=== PATIENT | female | born 1955 | race Caucasian/White ===

== ENCOUNTER → 2018-03-31 | Outpatient (CLI) | payer OTHER ==
[~2018-03-31] MED LIST: ASPI81TA28 PO; ATOR-24 PO; CALC500C70 PO; GABA-112 PO; GABA-113 PO; INSU1INJ33 INJ; LISI-725 PO; METH10TA6 PO; MULT-506 PO; VITA1TAB22 PO
== END | disposition home or self-care (01) ==
LOC: C.RDSM 14:15
PROVIDERS: ATTEND Physical Medicine & Rehabilitation Sports Medicine
DX: M79.674 Pain in right toe(s) (principal); E11.621 Type 2 diabetes mellitus with foot ulcer; Z88.8 Allergy status to other drugs, medicaments and biological substances

== ENCOUNTER 2021-03-02 09:40 | Inpatient (IN) ==
[2021-03-02 10:22] LABS: Basophils # (auto) 0.09 K/uL (0-0.2); Basophils % (auto) 1.4 %; Eosinophils # (auto) 0.17 K/uL (0-0.5); Eosinophils % (auto) 2.7 %; Hematocrit (blood only) 36.8 % (37-47); Immature Granulocytes # (auto) 0.01 K/uL (0.00-0.02); Immature Granulocytes % (auto) 0.2 %; Lymphocytes # (auto) 1.71 K/uL (1.2-3.4); Lymphocytes % (auto) 26.9 %; Mean Corpuscular Hemoglobin 32.4 pg (25-34); Mean Corpuscular Hgb Conc 35.3 g/dL (32-36); Mean Corpuscular Volume 91.8 fL (80-100); Mean Platelet Volume 13.1 fL (7.4-10.4); Monocytes # (auto) 0.41 K/uL (0.11-0.59); Monocytes % (auto) 6.4 %; Neutrophils # (auto) 3.97 K/uL (1.4-6.5); Neutrophils % (auto) 62.4 %; Platelet Count 177 K/uL (130-400); RDW Coefficient of Variation 12.6 % (11.5-14.5); RDW Standard Deviation 42.3 fL (36.4-46.3); Red Blood Count 4.01 M/uL (4.2-5.4); White Blood Count 6.36 K/uL (4.8-10.8)
[2021-03-02] MEDS ORDERED: SODIUM CHLORIDE 0.9% 1000ML 2,000 ML IV ONE (10:41)
[2021-03-02 10:48] LABS: Albumin Globulin Ratio 0.9 (0.9-2); Albumin Level 3.4 gm/dl (3.4-5.0); BUN Creatinine Ratio 21.2 (10-20); Bilirubin,Total 0.6 mg/dl (0.2-1); Calcium 9.5 mg/dl (8.5-10.1); Creatinine Clr Calc Pharmacy 27.8 ml/min; Est GFR (African American) 26.8 ml/min; Est GFR (Non-African American) 23.2 ml/min; Globulin 3.6 gm/dl (2.5-4.0); Potassium 3.3 mmol/L (3.5-5.1)
[2021-03-02] MEDS ORDERED: OPTIRAY 320 125ml IV ONE (10:50)
[2021-03-02] MEDS ORDERED: HHS GOAL RANGE 250-350 mg/dl ONE (10:53)
[2021-03-02] MEDS ORDERED: CARBOHYDRATES FOR HYPOGLYCEMIA PO PRN (10:53)
[2021-03-02] MEDS ORDERED: GLUCOSE 10 TABS/TUBE PO PRN (10:53)
[2021-03-02] MEDS ORDERED: GLUCAGON FOR INJ 1 MG VIAL SQ PRN (10:53)
[2021-03-02] MEDS ORDERED: DEXTROSE 50% 50 ML SYRINGE IV PRN (10:53)
[2021-03-02] MEDS ORDERED: GLUCOSE 40% GEL 15 GM TUBE PO PRN (10:53)
[2021-03-02] MEDS ORDERED: STAT IV Infusion **Titration per Protocol STA ×2 (10:53→11:27)
[2021-03-02] MEDS ORDERED: INSULIN REGULAR 250 UNITS in SODIUM CHLORIDE 0.9% 247.5 ML IV SCH ×2 (11:00→11:15)
--- NOTE | 2021-03-02 11:05 | Emergency Department Note ---
Impression & Plan Acute hyperglycemia, Type 1 diabetes mellitus with complications, Acute hypotension, Brain TIA ED Provider Note NAME: DAVID Tomas ASHLI AGE: 65 SEX: F : 1955 ARRIVES VIA: Walk-In INFORMANT: Patient ED PROVIDER(S): Fitz Song DO CHIEF COMPLAINT: Slurred speech and left upper extremity weakness HPI: Patient is a 65-year-old female that presents to the ER for slurred speech. Patient notes that she has been dizzy all week and since this past Tuesday. She has been having trouble walking. She actually fell down earlier today. This occurred around 8 AM. She notes that some around 9:00 she noticed some weakness in her left hand with movement and lifting. Coworkers also noticed some slurred speech. This lasted for about 45 minutes and now has resolved. She denies any headache or change in vision. No chest pain or shortness of breath. No nausea, vomiting, or diarrhea. She notes her blood sugars have been uncontrolled for the past year due to medication issues. They generally run in the 300s. Denies any dysuria urgency or frequency. ROS: See above HPI for pertinent positives & negatives. A total of 10 systems reviewed and were otherwise negative. PAST MEDICAL HISTORY:See Below PAST SURGICAL HISTORY:See Below FAMILY HISTORY:See Below SOCIAL HISTORY:See Below HOME MEDICATIONS:See Below ALLERGIES:See Below VITALS:See Below PHYSICAL EXAMINATION: GENERAL: Sitting up in bed, alert, well appearing, well nourished, no distress, non-toxic EYE EXAM: normal conjunctiva. PERRL and EOM's intact. Nystagmus to the left with rightward gaze OROPHARYNX: no exudate, no erythema, lips, buccal mucosa, and tongue normal and mucous membranes are dry NECK: supple, no nuchal rigidity, no adenopathy, non-tender LUNGS: Clear to auscultation. Normal chest wall mechanics HEART: no murmurs, S1 normal and S2 normal ABDOMEN: abdomen soft, non-tender, normo-active bowel sounds, no masses, no rebound or guarding. UPPER EXTREMITIES: upper extremities are grossly normal. LOWER EXTREMITIES: No pitting edema. NEURO EXAM: Normal sensorium, cranial nerves II-XII intact, normal speech, no weakness of arms, no weakness of legs. No drift. Finger to nose intact. Gross sensation intact. MEDICAL DECISION MAKING: Patient is a 65-year-old female who presents the ER for slurred speech and left upper extremity weakness which is now resolved. She has been dizzy for the past 3 days. Blood sugars have been uncontrolled for the past year running in the 300s due to insurance issues with getting meds. Labs show no significant leukocytosis or anemia. BMP with a hyponatremia and hypokalemia 3.3. CO2 was elevated at 33. Creatinine was at 2.17 up from baseline of 1.5-1.7. Glucose initially was about 600. LFTs troponin was unremarkable. UA was pending upon admission. Covid was negative. Patient denies any urinary complaints. Patient was given 40 mEq orally as well as 20 mEq to the IV potassium. She was given IV fluids. She is placed on insulin drip. CT of the head was performed after stroke alert was initially called upon initial evaluation. She was back to her baseline. Symptoms this started 9. NIH was 0. CT head was negative. Held on angios due to resolution of symptoms and elevated creatinine. Patient was updated bedside. Discussed with the hospitalist admitted for further work-up. Triage Nursing notes reviewed. Limited review of prior medical records performed Vital Signs: reviewed and remarkable for hypotension Differential diagnosis: Differential Diagnosis includes but is not limited to ischemic Stroke, hemorrhagic stroke, bells palsy, mass, neoplasm, migraine headache, seizure, subarachnoid hemorrhage, TIA, and transient global amnesia. ER treatment provided: See below Diagnostics interpreted by me: ECG: Sinus rhythm rate of 61 Left axis No PVCs QTC 463 Cardiac Monitoring: An order was placed for continuous cardiac monitoring. The monitor shows a rate of 60 with sinus rhythm. Laboratory studies: As stated above and show below. Imaging studies: CT head was negative Chest x-ray without significant change from previous Consultation(s): Discussed with hospitalist for further evaluation Procedures: none Critical Care: I have personally spent 45 minutes of critical care time in the direct management of this patient. This includes bedside care, interpretation of diagnostic studies, and testing, discussion with consultants, patient, and family members, and other required patient management activities. This 45 minutes is in excess of all separately billable procedures. 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 History of tonsillectomy History of tooth extraction S/P cholecystectomy Family History Sister Diabetes Grandmother (Paternal) Diabetes Father Stroke COPD (chronic obstructive pulmonary disease) Brother Hemochromatosis Social History Smoking Status: Never smoker Cigarettes Per Day: QUIT AT 18; Second Hand Exposure: No; Hx Alcohol Use: Yes Alcohol type: wine Hx Substance Use: No Preferred Language: Togolese Communication Ability: Effective Staker Surveying Required: No Beliefs That Will Affect Care: None Current Living Situation: Alone Feels Safe at Home: Yes Assistive Devices: Glasses Allergies Allergies Allergy/AdvReac Type Severity Reaction Status Date / Time pseudoephedrine Allergy Intermediate swelling Verified 03/02/21 11:37 Home Meds Home Medications Medication Instructions Recorded Confirmed multivitamin 1 tab PO DAILY 04/03/18 03/02/21 cyanocobalamin (vitamin B-12) 1,000 mcg PO DAILY 07/06/18 03/02/21 1,000 mcg capsule lisinopril 40 mg tablet 40 mg PO DAILY 06/06/19 03/02/21 calcium citrate 200 mg (950 mg) 600 mg PO DAILY tab 08/24/19 03/02/21 tablet metoprolol tartrate 50 mg tablet 50 mg PO HS tab 08/24/19 03/02/21 gabapentin 100 mg capsule See Rx Instructions PO BID cap 05/19/20 03/02/21 atorvastatin 80 mg tablet 80 mg PO HS 06/09/20 03/02/21 blood sugar diagnostic (OneTouch ea 08/22/20 10/20/20 Verio test strips) lancets 33 gauge (OneTouch Delica ea 08/22/20 10/20/20 Lancets) aspirin 81 mg tablet,delayed 81 mg PO HS 03/02/21 03/02/21 release cholecalciferol (vitamin D3) 25 25 mcg PO DAILY 03/02/21 03/02/21 mcg (1,000 unit) tablet (Vitamin D3) insulin glargine 100 unit/mL (3 20 unit SUBCUT BID 03/02/21 03/02/21 mL) subcutaneous pen (Basaglar KwikPen U-100 Insulin) insulin lispro 100 unit/mL 1 unit SUBCUT QDL 03/02/21 03/02/21 subcutaneous cartridge (Humalog U-100 Insulin) potassium gluconate 600 mg (99 mg) 99 mg PO DAILY 03/02/21 03/02/21 tablet Previous Rx's Medication Instructions Recorded hydrochlorothiazide 25 mg tablet 25 mg PO DAILY #90 tab 05/20/20 levothyroxine 112 mcg tablet 112 mcg PO DAILY #90 tab 08/22/20 Dexcom G6 Youth Counselor (blood-glucose #1 ea NS 11/28/20 meter,continuous) Dexcom G6 Sensor (blood-glucose #9 ea NS 11/28/20 sensor) Dexcom G6 Transmitter #1 ea NS 11/28/20 (blood-glucose transmitter) V-GO 20 (sub-q insulin device, 20 #90 ea NS 12/11/20 unit) Results & Data (ED) Vital Signs Vital Signs - 24 hr 03/02/21 09:46 03/02/21 10:11 03/02/21 10:30 Temperature 36.5 C Temperature Source Oral Pulse Rate 61 60 60 Pulse Rate from SpO2 Sensor 61 Respiratory Rate 18 17 12 Blood Pressure 90/59 L 115/66 118/71 Blood Pressure Mean 69 82 86 Pulse Oximetry 99 96 95 Oxygen Delivery Method Sepsis Recent Fever Within 48 Hours No Sepsis New/Unexplained Change in Mental Status No Sepsis Action Taken by Nursing No Action Required 03/02/21 11:30 03/02/21 12:00 03/02/21 12:30 Temperature Temperature Source Pulse Rate 62 65 62 Pulse Rate from SpO2 Sensor 66 62 Respiratory Rate 17 19 15 Blood Pressure 155/89 H 165/97 H 146/88 H Blood Pressure Mean 111 119 107 Pulse Oximetry 96 100 98 Oxygen Delivery Method Sepsis Recent Fever Within 48 Hours Sepsis New/Unexplained Change in Mental Status Sepsis Action Taken by Nursing 03/02/21 13:00 03/02/21 14:06 Temperature Temperature Source Pulse Rate 58 L 65 Pulse Rate from SpO2 Sensor 58 L Respiratory Rate 18 18 Blood Pressure 152/87 H 142/77 H Blood Pressure Mean 108 Pulse Oximetry 99 99 Oxygen Delivery Method Room Air Sepsis Recent Fever Within 48 Hours Sepsis New/Unexplained Change in Mental Status Sepsis Action Taken by Nursing Laboratory Data Result diagrams: 03/02/21 10:11 03/02/21 10:11 Lab Results 03/02/21 03/02/21 03/02/21 Range/Units 09:53 09:54 10:11 WBC 6.36 (4.8-10.8) K/uL RBC 4.01 L (4.2-5.4) M/uL Hgb 13.0 (12.0-16.0) g/dL Hct 36.8 L (37-47) % MCV 91.8 (80-100) fL MCH 32.4 (25-34) pg MCHC 35.3 (32-36) g/dL RDW Std Deviation 42.3 (36.4-46.3) fL RDW Coeff of Hattie 12.6 (11.5-14.5) % Plt Count 177 (130-400) K/uL MPV 13.1 H (7.4-10.4) fL Immature Gran % (Auto) 0.2 % Neut % (Auto) 62.4 % Lymph % (Auto) 26.9 % Parke % (Auto) 6.4 % Eos % (Auto) 2.7 % Baso % (Auto) 1.4 % Neut # (Auto) 3.97 (1.4-6.5) K/uL Lymph # (Auto) 1.71 (1.2-3.4) K/uL Parke # (Auto) 0.41 (0.11-0.59) K/uL Eos # (Auto) 0.17 (0-0.5) K/uL Baso # (Auto) 0.09 (0-0.2) K/uL Immature Gran # (Auto) 0.01 (0.00-0.02) K/uL PT (9.0-12.0) Seconds INR (0.9-1.1) APTT (21.0-31.0) Seconds PTT Ratio ABG pH (7.35-7.45) ABG pCO2 (35-46) mmHg ABG pO2 (80-95) mmHg ABG HCO3 (19-24) mmol/L ABG O2 Saturation (90-95) % ABG Base Excess (-9-1.8) mEq/L Fahad Test (Pos) Barometric Pressure mm/Hg Oxygen Given Sodium (136-145) mmol/L Potassium (3.5-5.1) mmol/L Chloride (98-107) mmol/L Carbon Dioxide (21-32) mmol/L Anion Gap (3-11) BUN (7-18) mg/dl Creatinine (0.6-1.2) mg/dl Est Cr Clr Drug Dosing ml/min Est GFR ( Amer) ml/min Est GFR (Non-Af Amer) ml/min BUN/Creatinine Ratio (10-20) Glucose (70-99) mg/dl POC Glucose 591 H* > 600 H* (70-99) mg/dl Estimat Average Glucose mg/dl Hemoglobin A1c (4.5-5.6) % Calcium (8.5-10.1) mg/dl Phosphorus (2.5-4.9) mg/dl Magnesium (1.8-2.4) mg/dl Total Bilirubin (0.2-1) mg/dl AST (15-37) U/L ALT (12-78) U/L Alkaline Phosphatase (45-117) U/L Troponin I (0-0.045) ng/ml Total Protein (6.4-8.2) gm/dl Albumin (3.4-5.0) gm/dl Globulin (2.5-4.0) gm/dl Albumin/Globulin Ratio (0.9-2) Beta-Hydroxybutyric Acd (0.2-2.81) mg/dl COVID-19 Eval Order SARS-CoV-2 (PCR) (Negative) 03/02/21 03/02/21 03/02/21 Range/Units 10:11 11:06 11:25 WBC (4.8-10.8) K/uL RBC (4.2-5.4) M/uL Hgb (12.0-16.0) g/dL Hct (37-47) % MCV (80-100) fL MCH (25-34) pg MCHC (32-36) g/dL RDW Std Deviation (36.4-46.3) fL RDW Coeff of Hattie (11.5-14.5) % Plt Count (130-400) K/uL MPV (7.4-10.4) fL Immature Gran % (Auto) % Neut % (Auto) % Lymph % (Auto) % Parke % (Auto) % Eos % (Auto) % Baso % (Auto) % Neut # (Auto) (1.4-6.5) K/uL Lymph # (Auto) (1.2-3.4) K/uL Parke # (Auto) (0.11-0.59) K/uL Eos # (Auto) (0-0.5) K/uL Baso # (Auto) (0-0.2) K/uL Immature Gran # (Auto) (0.00-0.02) K/uL PT 9.9 (9.0-12.0) Seconds INR 1.0 (0.9-1.1) APTT 24.3 (21.0-31.0) Seconds PTT Ratio 0.9 ABG pH (7.35-7.45) ABG pCO2 (35-46) mmHg ABG pO2 (80-95) mmHg ABG HCO3 (19-24) mmol/L ABG O2 Saturation (90-95) % ABG Base Excess (-9-1.8) mEq/L Fahad Test (Pos) Barometric Pressure mm/Hg Oxygen Given Sodium 129 L (136-145) mmol/L Potassium 3.3 L (3.5-5.1) mmol/L Chloride 89 L (98-107) mmol/L Carbon Dioxide 33 H (21-32) mmol/L Anion Gap 7.0 (3-11) BUN 46 H (7-18) mg/dl Creatinine 2.17 H (0.6-1.2) mg/dl Est Cr Clr Drug Dosing 27.8 ml/min Est GFR ( Amer) 26.8 ml/min Est GFR (Non-Af Amer) 23.2 ml/min BUN/Creatinine Ratio 21.2 H (10-20) Glucose 581 H* (70-99) mg/dl POC Glucose > 600 H* (70-99) mg/dl Estimat Average Glucose mg/dl Hemoglobin A1c (4.5-5.6) % Calcium 9.5 (8.5-10.1) mg/dl Phosphorus (2.5-4.9) mg/dl Magnesium (1.8-2.4) mg/dl Total Bilirubin 0.6 (0.2-1) mg/dl AST 31 (15-37) U/L ALT 43 (12-78) U/L Alkaline Phosphatase 85 (45-117) U/L Troponin I (0-0.045) ng/ml Total Protein 7.0 (6.4-8.2) gm/dl Albumin 3.4 (3.4-5.0) gm/dl Globulin 3.6 (2.5-4.0) gm/dl Albumin/Globulin Ratio 0.9 (0.9-2) Beta-Hydroxybutyric Acd (0.2-2.81) mg/dl COVID-19 Eval Order SARS-CoV-2 (PCR) (Negative) 03/02/21 03/02/21 03/02/21 Range/Units 11:25 11:25 11:25 WBC (4.8-10.8) K/uL RBC (4.2-5.4) M/uL Hgb (12.0-16.0) g/dL Hct (37-47) % MCV (80-100) fL MCH (25-34) pg MCHC (32-36) g/dL RDW Std Deviation (36.4-46.3) fL RDW Coeff of Hattie (11.5-14.5) % Plt Count (130-400) K/uL MPV (7.4-10.4) fL Immature Gran % (Auto) % Neut % (Auto) % Lymph % (Auto) % Parke % (Auto) % Eos % (Auto) % Baso % (Auto) % Neut # (Auto) (1.4-6.5) K/uL Lymph # (Auto) (1.2-3.4) K/uL Parke # (Auto) (0.11-0.59) K/uL Eos # (Auto) (0-0.5) K/uL Baso # (Auto) (0-0.2) K/uL Immature Gran # (Auto) (0.00-0.02) K/uL PT (9.0-12.0) Seconds INR (0.9-1.1) APTT (21.0-31.0) Seconds PTT Ratio ABG pH 7.44 (7.35-7.45) ABG pCO2 46 (35-46) mmHg ABG pO2 72 L (80-95) mmHg ABG HCO3 30 H (19-24) mmol/L ABG O2 Saturation 95.2 H (90-95) % ABG Base Excess 4.9 H (-9-1.8) mEq/L Fahad Test Pos (Pos) Barometric Pressure 732.0 mm/Hg Oxygen Given RA Sodium (136-145) mmol/L Potassium (3.5-5.1) mmol/L Chloride (98-107) mmol/L Carbon Dioxide (21-32) mmol/L Anion Gap (3-11) BUN (7-18) mg/dl Creatinine (0.6-1.2) mg/dl Est Cr Clr Drug Dosing ml/min Est GFR ( Amer) ml/min Est GFR (Non-Af Amer) ml/min BUN/Creatinine Ratio (10-20) Glucose (70-99) mg/dl POC Glucose (70-99) mg/dl Estimat Average Glucose 413 mg/dl Hemoglobin A1c 16.0 H (4.5-5.6) % Calcium (8.5-10.1) mg/dl Phosphorus 3.0 (2.5-4.9) mg/dl Magnesium 2.1 (1.8-2.4) mg/dl Total Bilirubin (0.2-1) mg/dl AST (15-37) U/L ALT (12-78) U/L Alkaline Phosphatase (45-117) U/L Troponin I < 0.015 (0-0.045) ng/ml Total Protein (6.4-8.2) gm/dl Albumin (3.4-5.0) gm/dl Globulin (2.5-4.0) gm/dl Albumin/Globulin Ratio (0.9-2) Beta-Hydroxybutyric Acd (0.2-2.81) mg/dl COVID-19 Eval Order SARS-CoV-2 (PCR) (Negative) 03/02/21 03/02/21 03/02/21 Range/Units 11:50 11:50 12:41 WBC (4.8-10.8) K/uL RBC (4.2-5.4) M/uL Hgb (12.0-16.0) g/dL Hct (37-47) % MCV (80-100) fL MCH (25-34) pg MCHC (32-36) g/dL RDW Std Deviation (36.4-46.3) fL RDW Coeff of Hattie (11.5-14.5) % Plt Count (130-400) K/uL MPV (7.4-10.4) fL Immature Gran % (Auto) % Neut % (Auto) % Lymph % (Auto) % Parke % (Auto) % Eos % (Auto) % Baso % (Auto) % Neut # (Auto) (1.4-6.5) K/uL Lymph # (Auto) (1.2-3.4) K/uL Parke # (Auto) (0.11-0.59) K/uL Eos # (Auto) (0-0.5) K/uL Baso # (Auto) (0-0.2) K/uL Immature Gran # (Auto) (0.00-0.02) K/uL PT (9.0-12.0) Seconds INR (0.9-1.1) APTT (21.0-31.0) Seconds PTT Ratio ABG pH (7.35-7.45) ABG pCO2 (35-46) mmHg ABG pO2 (80-95) mmHg ABG HCO3 (19-24) mmol/L ABG O2 Saturation (90-95) % ABG Base Excess (-9-1.8) mEq/L Fahad Test (Pos) Barometric Pressure mm/Hg Oxygen Given Sodium (136-145) mmol/L Potassium (3.5-5.1) mmol/L Chloride (98-107) mmol/L Carbon Dioxide (21-32) mmol/L Anion Gap (3-11) BUN (7-18) mg/dl Creatinine (0.6-1.2) mg/dl Est Cr Clr Drug Dosing ml/min Est GFR ( Amer) ml/min Est GFR (Non-Af Amer) ml/min BUN/Creatinine Ratio (10-20) Glucose (70-99) mg/dl POC Glucose 504 H* (70-99) mg/dl Estimat Average Glucose mg/dl Hemoglobin A1c (4.5-5.6) % Calcium (8.5-10.1) mg/dl Phosphorus (2.5-4.9) mg/dl Magnesium (1.8-2.4) mg/dl Total Bilirubin (0.2-1) mg/dl AST (15-37) U/L ALT (12-78) U/L Alkaline Phosphatase (45-117) U/L Troponin I (0-0.045) ng/ml Total Protein (6.4-8.2) gm/dl Albumin (3.4-5.0) gm/dl Globulin (2.5-4.0) gm/dl Albumin/Globulin Ratio (0.9-2) Beta-Hydroxybutyric Acd (0.2-2.81) mg/dl COVID-19 Eval Order Covid19 at [facility] SARS-CoV-2 (PCR) NEGATIVE (Negative) 03/02/21 Range/Units 13:48 WBC (4.8-10.8) K/uL RBC (4.2-5.4) M/uL Hgb (12.0-16.0) g/dL Hct (37-47) % MCV (80-100) fL MCH (25-34) pg MCHC (32-36) g/dL RDW Std Deviation (36.4-46.3) fL RDW Coeff of Hattie (11.5-14.5) % Plt Count (130-400) K/uL MPV (7.4-10.4) fL Immature Gran % (Auto) % Neut % (Auto) % Lymph % (Auto) % Parke % (Auto) % Eos % (Auto) % Baso % (Auto) % Neut # (Auto) (1.4-6.5) K/uL Lymph # (Auto) (1.2-3.4) K/uL Parke # (Auto) (0.11-0.59) K/uL Eos # (Auto) (0-0.5) K/uL Baso # (Auto) (0-0.2) K/uL Immature Gran # (Auto) (0.00-0.02) K/uL PT (9.0-12.0) Seconds INR (0.9-1.1) APTT (21.0-31.0) Seconds PTT Ratio ABG pH (7.35-7.45) ABG pCO2 (35-46) mmHg ABG pO2 (80-95) mmHg ABG HCO3 (19-24) mmol/L ABG O2 Saturation (90-95) % ABG Base Excess (-9-1.8) mEq/L Fahad Test (Pos) Barometric Pressure mm/Hg Oxygen Given Sodium (136-145) mmol/L Potassium (3.5-5.1) mmol/L Chloride (98-107) mmol/L Carbon Dioxide (21-32) mmol/L Anion Gap (3-11) BUN (7-18) mg/dl Creatinine (0.6-1.2) mg/dl Est Cr Clr Drug Dosing ml/min Est GFR ( Amer) ml/min Est GFR (Non-Af Amer) ml/min BUN/Creatinine Ratio (10-20) Glucose (70-99) mg/dl POC Glucose 445 H* (70-99) mg/dl Estimat Average Glucose mg/dl Hemoglobin A1c (4.5-5.6) % Calcium (8.5-10.1) mg/dl Phosphorus (2.5-4.9) mg/dl Magnesium (1.8-2.4) mg/dl Total Bilirubin (0.2-1) mg/dl AST (15-37) U/L ALT (12-78) U/L Alkaline Phosphatase (45-117) U/L Troponin I (0-0.045) ng/ml Total Protein (6.4-8.2) gm/dl Albumin (3.4-5.0) gm/dl Globulin (2.5-4.0) gm/dl Albumin/Globulin Ratio (0.9-2) Beta-Hydroxybutyric Acd (0.2-2.81) mg/dl COVID-19 Eval Order SARS-CoV-2 (PCR) (Negative) Administered Medications Insulin Human Regular 250 (units/ Sodium Chloride) 250 mls @ 3.5 mls/hr IV .Q24H [facility]; Protocol Stop: 04/01/21 11:14 Last Titration: 03/02/21 12:49 Dose: 3.5 units/hr, 3.5 mls/hr Documented by: [id number] Cosigned by: [id number] Admin: 03/02/21 11:38 Dose: 2.9 units/hr, 2.9 mls/hr Documented by: [id number] Cosigned by: [id number] Discontinued Medications Sodium Chloride (Nss 1000ml) 2,000 mls @ 999 mls/hr IV .Q2H1M ONE Stop: 03/02/21 12:41 Last Admin: 03/02/21 11:38 Dose: 999 mls/hr Documented by: [id number] Potassium Chloride (K Gonzalo / Wtr) 10 meq in 100 mls @ 100 mls/hr IV Q1H [facility]ODIA Stop: 03/02/21 12:59 Last Admin: 03/02/21 13:23 Dose: 100 mls/hr Documented by: [id number] Infusion: 03/02/21 12:49 Dose: 0 mls/hr Documented by: [id number] Admin: 03/02/21 11:38 Dose: 100 mls/hr Documented by: [id number] Insulin Human Regular (Novolin-R Bolus From Bag) 3 units IV ONE ONE Stop: 03/02/21 11:19 Last Admin: 03/02/21 11:40 Dose: 3 units Documented by: [id number] Cosigned by: [id number] Ioversol (Optiray 320 125ml) 120 ml IV ONCE ONE Stop: 03/02/21 10:51 Last Admin: 03/02/21 10:50 Dose: 120 ml Documented by: [id number] Potassium Chloride (Potassium Chloride 20 Meq/15 Ml Udc) 40 meq PO NOW STA Stop: 03/02/21 11:25 Last Admin: 03/02/21 11:37 Dose: 40 meq Documented by: [id number] Imaging Data Radiologist's Impression: Chest X-Ray 03/02/21 10:40 XR chest 1V portable CLINICAL HISTORY: Stroke Like Symptoms COMPARISON STUDY: November 18, 2020 FINDINGS: No pneumothorax. No pleural effusion. No large infiltrates or consolidative lesions are seen. Redemonstration of minimal density at the left base which could represent small atelectasis or scarring. Cardiomediastinal silhouette is within normal limits in size. No significant pulmonary vascular congestion.. Osseous structures: Minimal degenerative changes of the spine. IMPRESSION: 1. No large infiltrates or consolidative lesions. Minimal density at the left base was also seen on prior study and might represent small atelectasis or scarring. ACT 112: Negative or not required by law. The above report was generated using voice recognition software. It may contain grammatical, syntax or spelling errors. Electronically signed by: Marie Rebolledo DO 03/02/2021 11:[address] 03/02/21 10:[address] DOSE: 690.05 mGycm HISTORY: Stroke Like Symptoms TECHNIQUE: Multiaxial CT images of the head were performed without the use of intravenous contrast. Automated exposure control was utilized for this study. A dose lowering technique was utilized adhering to the principles of ALARA. Comparison: None. Findings: The paranasal sinuses and mastoid air cells are clear. The calvarium and skull base are intact. The ventricles and sulci are within normal limits. There is no mass, hematoma, midline shift, or acute infarct. Impression: No acute intracranial abnormality. ACT 112: Negative or not required by law. Electronically signed by: Juvenal Glez M.D. 03/02/2021 11:07 AM Discharge Plan Visit Data Chief Complaint: Hyperglycemia Stated Complaint: DIZZY SPELLS, UNBALANCED, SLURRED SPEECH, REF BY D ED Provider: Fitz Song ED Midlevel Provider: Priya Su Discharge Problem: Acute hyperglycemia, Type 1 diabetes mellitus with complications, Acute hypotension, Brain TIA Discharge Instructions Interventions: ED Discharge Assessment Last Done: 03/02/21 14:06 Forms Stand Alone Forms: [facility] Prescriptions Prescriptions: No Action multivitamin tablet 1 tab PO DAILY RF: 0 gabapentin 100 mg capsule See Rx Instructions PO BID RF: 0 hydrochlorothiazide 25 mg tablet 25 mg PO DAILY Qty: 90 RF: 3 (DME) Dexcom G6 Youth Counselor Misc See Rx Instructions .ROUTE .MEDSUPPLY Qty: 1 RF: 0 (DME) Dexcom G6 Sensor Device See Rx Instructions .ROUTE .MEDSUPPLY Qty: 9 RF: 3 (DME) Dexcom G6 Transmitter Device See Rx Instructions .ROUTE .MEDSUPPLY Qty: 1 RF: 3 (DME) V-GO 20 Device See Rx Instructions .ROUTE .MEDSUPPLY Qty: 90 RF: 3 (DME) OneTouch Verio test strips Strip See Rx Instructions .ROUTE .MEDSUPPLY RF: 0 (DME) lancets [OneTouch Delica Lancets] 33 gauge misc See Rx Instructions [id number] .MEDSUPPLY RF: 0 levothyroxine 112 mcg tablet 112 mcg PO DAILY Qty: 90 RF: 3 calcium citrate 200 mg (950 mg) tablet 600 mg PO DAILY RF: 0 atorvastatin 80 mg tablet 80 mg PO HS RF: 0 lisinopril 40 mg tablet 40 mg PO DAILY RF: 0 metoprolol tartrate 50 mg tablet 50 mg PO HS RF: 0 cyanocobalamin (vitamin B-12) 1,000 mcg Capsule 1,000 mcg PO DAILY RF: 0 aspirin 81 mg Tablet,Delayed Release (Dr/Ec) 81 mg PO HS RF: 0 Humalog U-100 Insulin 100 unit/mL Cartridge 1 unit SUBCUT QDL RF: 0 cholecalciferol (vitamin D3) [Vitamin D3] 25 mcg (1,000 unit) Tablet 25 mcg PO DAILY RF: 0 Basaglar KwikPen U-100 Insulin 100 unit/mL (3 mL) insulin pen 20 unit SUBCUT BID RF: 0 potassium gluconate 600 mg (99 mg) Tablet 99 mg PO DAILY RF: 0 Referrals Referrals: Taylor Andrews PA-C [Primary Care Provider] - Resident Activity Tracking Resident Involvement: Resident Care Provided (Patient seen in conjunction with attending provider, please see their documentation for MDM) Care Provided: Adult ED
--- NOTE | 2021-03-02 11:09 | CT Scan Report ---
HEAD CT NONCONTRAST CT DOSE: 690.05 mGycm HISTORY: Stroke Like Symptoms TECHNIQUE: Multiaxial CT images of the head were performed without the use of intravenous contrast. A utomated exposure control was utilized for this study. A dose lowering technique was utilized adheri ng to the principles of ALARA. Comparison: None. Findings: The paranasal sinuses and mastoid air cells are clear. The calvarium and skull base are int act. The ventricles and sulci are within normal limits. There is no mass, hematoma, midline shift, or acute infarct. Impression: No acute intracranial abnormality. ACT 112: Negative or not required by law. Electronically signed by: Juvenal Glez M.D. 03/02/2021 11:07 AM
[2021-03-02] MEDS ORDERED: NovoLIN-R BOLUS FROM BAG IV ONE ×3 (11:15→11:18)
[2021-03-02] MEDS ORDERED: POTASSIUM CHLORIDE 20 MEQ/15 ML UDC PO STA (11:24)
--- NOTE | 2021-03-02 11:26 | XRay Report ---
XR chest 1V portable CLINICAL HISTORY: Stroke Like Symptoms COMPARISON STUDY: November 18, 2020 FINDINGS: No pneumothorax. No pleural effusion. No large infiltrates or consolidative lesions are seen. Redemonstration of minimal density at the lef t base which could represent small atelectasis or scarring. Cardiomediastinal silhouette is within normal limits in size. No significant pulmonary vascular congestion.. Osseous structures: Minimal degenerative changes of the spine. IMPRESSION: 1. No large infiltrates or consolidative lesions. Minimal density at the left base was also seen on prior study and might represent small atelectasis or scarring. ACT 112: Negative or not required by law. The above report was generated using voice recognition software. It may contain grammatical, syntax o r spelling errors. Electronically signed by: Marie Rebolledo DO 03/02/2021 11:24 AM
[2021-03-02] MEDS ORDERED: INSULIN PROTOCOL GOAL RANGE ONE (11:27)
[2021-03-02] MEDS: POTASSIUM CHLORIDE / WTR 10 MEQ/100 ML PLCT IV SCH ×2 (11:38→13:23)
[2021-03-02 11:47] LABS: Base Excess ABG 4.9 mEq/L (-9-1.8); HCO3 ABG 30 mmol/L (19-24); Oxygen Saturation ABG 95.2 % (90-95); PCO2 ABG 46 mmHg (35-46); PO2 ABG 72 mmHg (80-95); pH ABG 7.44 (7.35-7.45)
[2021-03-02 11:49] LABS: Allen Test Pos (Pos)
[2021-03-02 11:56] LABS: Partial Thromboplastin Ratio 0.9; Partial Thromboplastin Time 24.3 Seconds (21.0-31.0); Prothrombin Time 9.9 Seconds (9.0-12.0)
--- NOTE | 2021-03-02 12:47 | History & Physical Report ---
Date of Service March 02, 2021 Assessment & Plan (1) Weakness: Plan: TIA vs. Hyperglycemia - Rapidly resloved symptoms following insulin administration - MRI- pending, CT of head no acute process - ECHO pending - NIHSS 0 - Continue daily aspirin - Continue statin - Continue BB (2) Diabetes type 1, uncontrolled: Plan: Hyperglycemia vs. 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- - ALLY type I likely pre-renal - Continue with LR at 100 ml per hour - Avoid further nephrotoxic agents (4) Dyslipidemia: Plan: Continue statin - lipids in the morning (5) Graves disease: Plan: Continue with synthroid TSH in the morning (6) Hypertension: Plan: Appears well controlled- on appropriate disease modifying and risk reduction meds - Continue statin - Continue SOHAN - Continue BB (7) Overweight: Plan: Continue with diet education and control History of Present Illness Primary Care Provider: Taylor Andrews 65 YOF with past medical history of: HTN, HLD, Hypothyroidism/graves disease, CKD III, DMI, neuropathy and obesity. Patient comes to the emergency room today as a stroke alert secondary to left arm weakness, slurred speech, and mental fog. She had a CT scan of the head and [place]est[place] [facility]. Her head CT scan was negative and with return of her labs, was noted to be hyperglycemic >600. She was started on an insulin drip with potassium orally and IV replaced, she had resolution of her symptoms and NIHSS of 0. Hospitalist team was notified for admission. Patient symptoms started on Tuesday, where she had bouts of dizziness and light headedness/weakness at work, she ate lunch with her carbohydrates and immediately felt better. She had some remaining dizziness on Tuesday so she didn't do much but did check her sugars and used both of her insulins. She felt good on Tuesday and prior to bed her blood sugar was 390. When she got up this morning, she felt "mentally foggy" hard to concentrate and was weak and uncoordinated, she did not check her blood sugar this morning, secondary to the fact that she could not have used her glucometer or grazyna up her insulin. She got to work around 0930 and noted that her speech was slurring so she was brought to the [facility]. The patient has been diabetic for many years, and was initially on insulin pump, where she had not had any issues. Her insurance stopped covering this and she was then transitioned to a insulin pen. Now she is on basal bolus insulin with syringes and has had a likely hypoglycemic episode and hyper glycemic episode. The patient normally takes her long acting insulin without any missed doses, however she does not check her blood sugars through lunch at work or at dinner time and normally just covers herself prior to bed with her short acting and long acting insulins. The patient does not want to take her supplies to work she believes it is unsanitary and difficult to do. 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 The patient will be admitted to continue to evaluate her neurological status and hyperglycemic status. Will keep her on insulin drip and transition later this evening or in the morning. Will get MRI of the brain and ECHO for CVA workup. Patient normally follows with Dr. Becerril for endocrinology. Patient has received her COVID Vaccine. Allergies Allergy/AdvReac Type Severity Reaction Status Date / Time pseudoephedrine Allergy Intermediate swelling Verified 03/02/21 11:37 Home Medications Medication Instructions Recorded Confirmed Type multivitamin 1 tab PO DAILY 04/03/18 03/02/21 History cyanocobalamin (vitamin B-12) 1,000 mcg PO DAILY 07/06/18 03/02/21 History 1,000 mcg capsule lisinopril 40 mg tablet 40 mg PO DAILY 06/06/19 03/02/21 History calcium citrate 200 mg (950 mg) 600 mg PO DAILY tab 08/24/19 03/02/21 History tablet gabapentin 100 mg capsule See Rx Instructions PO BID cap 05/19/20 03/02/21 History hydrochlorothiazide 25 mg tablet 25 mg PO DAILY #90 tab 05/20/20 03/02/21 Rx atorvastatin 80 mg tablet 80 mg PO HS 06/09/20 03/02/21 History blood sugar diagnostic (OneTouch ea 08/22/20 10/20/20 History Verio test strips) lancets 33 gauge (OneTouch Delica ea 08/22/20 10/20/20 History Lancets) levothyroxine 112 mcg tablet 112 mcg PO DAILY #90 tab 08/22/20 03/02/21 Rx Dexcom G6 Boil Off Worker (blood-glucose #1 ea NS 11/28/20 Rx meter,continuous) Dexcom G6 Sensor (blood-glucose #9 ea NS 11/28/20 Rx sensor) Dexcom G6 Transmitter #1 ea NS 11/28/20 Rx (blood-glucose transmitter) V-GO 20 (sub-q insulin device, 20 #90 ea NS 12/11/20 Rx unit) aspirin 81 mg tablet,delayed 81 mg PO HS 03/02/21 03/02/21 History release cholecalciferol (vitamin D3) 25 25 mcg PO DAILY 03/02/21 03/02/21 History mcg (1,000 unit) tablet (Vitamin D3) insulin glargine 100 unit/mL (3 20 unit SUBCUT DAILY 03/02/21 03/03/21 History mL) subcutaneous pen (Basaglar KwikPen U-100 Insulin) insulin lispro 100 unit/mL 1 unit SUBCUT QDL 03/02/21 03/02/21 History subcutaneous cartridge (Humalog U-100 Insulin) metoprolol succinate 50 mg 50 mg PO HS 03/02/21 03/02/21 History tablet,extended release 24 hr (Toprol XL) potassium gluconate 600 mg (99 mg) 99 mg PO DAILY 03/02/21 03/02/21 History tablet 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 History of tonsillectomy History of tooth extraction S/P cholecystectomy Family History Sister Diabetes Grandmother (Paternal) Diabetes Father Stroke COPD (chronic obstructive pulmonary disease) Brother Hemochromatosis Social History Smoking Status: Former smoker Cigarettes Per Day: QUIT AT 18; Second Hand Exposure: No; Hx Alcohol Use: Yes Alcohol type: wine Hx Substance Use: No Preferred Language: Angolan Communication Ability: Effective Lokie Engineer Required: No Beliefs That Will Affect Care: None Current Living Situation: Alone Current Living Situation Comment: home alone with cat, cares for elderly mother who lives nearby How many Children do You have: 0 Other Information That Helps Us Care for You: No Feels Safe at Home: Yes Safety Concerns: Feels Safe At This Time Assistive Devices: None Review of Systems Review of Systems: REVIEW OF SYSTEMS: Constitutional: No fever, sweats or chills Eyes: (+) wears glasses, retinopathy, No diplopia, no worsening or blurred vision ENT: normal hearing, no trouble swallowing Respiratory: No cough, sputum, dyspnea at rest or on exertion Cardiovascular: No chest pain, tightness or palpitations Abdomen: No pain, nausea, vomiting, diarrhea or constipation Musculoskeletal: (+) walks with cane, fallen right arch, No joint pain, calf pain, swelling Neurologic: (+) (+) weakness, and tingling in left hand, No weakness, numbness/tingling, or balance problems Psychiatric: No anxiety or depression Skin: No rash or itch Physical Exam Physical Exam: PHYSICAL EXAM: General: awake, alert, no apparent distress Head: Normocephalic, atraumatic ENT: no pharyngeal exudate, mucous membranes dry, Neuro: PERRLA, EOMI, AAO x 3, speech clear and appropriate, strength intact bilaterally 5/5, sensation intact and equal all extremities and dermatomes, no pronator drift, no facial droop, normal coordination, dizziness resolved. NIHSS 0 Chest: equal rise and fall of the chest, no accessory muscle use, no heaves or thrills, Clear to auscultation, on room air, Cardiac: Regular rate and rhythm, telemetry reviewed, skin warm dry, cap refill <3 seconds, peripheral pulses +2 no JVD, no murmur, no JVD, no edema GI: NABS x 4 quadrants, soft, nontender to palpation, no rebound, guarding or tenderness : Spontaneously voiding, no pain, no CVA tenderness, Extremities: Normal inspection, no peripheral edema or erythema, calfs nontender to palpation Psych: Normal mood and affect Skin: no rash or erythema Results & Data Results & Data ([facility]) Vital Signs (Past 12 Hours) Vital Signs Temp Pulse Resp BP Pulse Ox 03/02/21 11:30 62 17 155/89 H 96 03/02/21 10:30 60 12 118/71 95 03/02/21 10:11 60 17 115/66 96 03/02/21 09:46 36.5 C 61 18 90/59 L 99 Laboratory Results Abnormal lab results 03/02/21 03/02/21 03/02/21 Range/Units 09:53 09:54 10:11 RBC 4.01 L (4.2-5.4) M/uL Hct 36.8 L (37-47) % MPV 13.1 H (7.4-10.4) fL ABG pO2 (80-95) mmHg ABG HCO3 (19-24) mmol/L ABG O2 Saturation (90-95) % ABG Base Excess (-9-1.8) mEq/L Sodium (136-145) mmol/L Potassium (3.5-5.1) mmol/L Chloride (98-107) mmol/L Carbon Dioxide (21-32) mmol/L BUN (7-18) mg/dl Creatinine (0.6-1.2) mg/dl BUN/Creatinine Ratio (10-20) Glucose (70-99) mg/dl POC Glucose 591 H* > 600 H* (70-99) mg/dl 03/02/21 03/02/21 03/02/21 Range/Units 10:11 11:06 11:25 RBC (4.2-5.4) M/uL Hct (37-47) % MPV (7.4-10.4) fL ABG pO2 72 L (80-95) mmHg ABG HCO3 30 H (19-24) mmol/L ABG O2 Saturation 95.2 H (90-95) % ABG Base Excess 4.9 H (-9-1.8) mEq/L Sodium 129 L (136-145) mmol/L Potassium 3.3 L (3.5-5.1) mmol/L Chloride 89 L (98-107) mmol/L Carbon Dioxide 33 H (21-32) mmol/L BUN 46 H (7-18) mg/dl Creatinine 2.17 H (0.6-1.2) mg/dl BUN/Creatinine Ratio 21.2 H (10-20) Glucose 581 H* (70-99) mg/dl POC Glucose > 600 H* (70-99) mg/dl 03/02/21 Range/Units 12:41 RBC (4.2-5.4) M/uL Hct (37-47) % MPV (7.4-10.4) fL ABG pO2 (80-95) mmHg ABG HCO3 (19-24) mmol/L ABG O2 Saturation (90-95) % ABG Base Excess (-9-1.8) mEq/L Sodium (136-145) mmol/L Potassium (3.5-5.1) mmol/L Chloride (98-107) mmol/L Carbon Dioxide (21-32) mmol/L BUN (7-18) mg/dl Creatinine (0.6-1.2) mg/dl BUN/Creatinine Ratio (10-20) Glucose (70-99) mg/dl POC Glucose 504 H* (70-99) mg/dl Diagnostic Findings Chest X-Ray 03/02/21 10:40 XR chest 1V portable CLINICAL HISTORY: Stroke Like Symptoms COMPARISON STUDY: November 18, 2020 FINDINGS: No pneumothorax. No pleural effusion. No large infiltrates or consolidative lesions are seen. Redemonstration of minimal density at the left base which could represent small atelectasis or scarring. Cardiomediastinal silhouette is within normal limits in size. No significant pulmonary vascular congestion.. Osseous structures: Minimal degenerative changes of the spine. IMPRESSION: 1. No large infiltrates or consolidative lesions. Minimal density at the left base was also seen on prior study and might represent small atelectasis or scarring. The above report was generated using voice recognition software. It may contain grammatical, syntax or spelling errors. Electronically signed by: Marie Rebolledo DO 03/02/2021 11:[address] 03/02/21 10:[address] DOSE: 690.05 mGycm HISTORY: Stroke Like Symptoms TECHNIQUE: Multiaxial CT images of the head were performed without the use of intravenous contrast. Automated exposure control was utilized for this study. A dose lowering technique was utilized adhering to the principles of ALARA. Comparison: None. Findings: The paranasal sinuses and mastoid air cells are clear. The calvarium and skull base are intact. The ventricles and sulci are within normal limits. There is no mass, hematoma, midline shift, or acute infarct. Impression: No acute intracranial abnormality. ACT 112: Negative or not required by law. Electronically signed by: Juvenal Glez M.D. 03/02/2021 11:07 AM Medications Administered Home Medications multivitamin 1 tab PO DAILY 04/03/18 [History Confirmed 03/02/21] cyanocobalamin (vitamin B-12) 1,000 mcg capsule 1,000 mcg PO DAILY 07/06/18 [History Confirmed 03/02/21] lisinopril 40 mg tablet 40 mg PO DAILY 06/06/19 [History Confirmed 03/02/21] calcium citrate 200 mg (950 mg) tablet 600 mg PO DAILY tab 08/24/19 [History Confirmed 03/02/21] metoprolol tartrate 50 mg tablet 50 mg PO HS tab 08/24/19 [History Confirmed 03/02/21] gabapentin 100 mg capsule See Rx Instructions PO BID cap 05/19/20 [History Confirmed 03/02/21] hydrochlorothiazide 25 mg tablet 25 mg PO DAILY #90 tab 05/20/20 [Rx Confirmed 03/02/21] atorvastatin 80 mg tablet 80 mg PO HS 06/09/20 [History Confirmed 03/02/21] blood sugar diagnostic (OneTouch Verio test strips) ea 08/22/20 [History Confirmed 10/20/20] lancets 33 gauge (OneTouch Delica Lancets) ea 08/22/20 [History Confirmed ] levothyroxine 112 mcg tablet 112 mcg PO DAILY #90 tab 08/22/20 [Rx Confirmed 03/02/21] Dexcom G6 Boil Off Worker (blood-glucose meter,continuous) #1 ea NS 11/28/20 [Rx] Dexcom G6 Sensor (blood-glucose sensor) #9 ea NS 11/28/20 [Rx] Dexcom G6 Transmitter (blood-glucose transmitter) #1 ea NS 04/23/21 [Rx] V-GO 20 (sub-q insulin device, 20 unit) #90 ea NS 12/11/20 [Rx] aspirin 81 mg tablet,delayed release 81 mg PO HS 03/02/21 [History Confirmed 03/02/21] cholecalciferol (vitamin D3) 25 mcg (1,000 unit) tablet (Vitamin D3) 25 mcg PO DAILY 03/02/21 [History Confirmed 03/02/21] insulin glargine 100 unit/mL (3 mL) subcutaneous pen (Basaglar KwikPen U-100 Insulin) 20 unit SUBCUT BID 03/02/21 [History Confirmed 03/02/21] insulin lispro 100 unit/mL subcutaneous cartridge (Humalog U-100 Insulin) 1 unit SUBCUT QDL 03/02/21 [History Confirmed 03/02/21] potassium gluconate 600 mg (99 mg) tablet 99 mg PO DAILY 03/02/21 [History Confirmed 03/02/21] Active Medications Dextrose (Dextrose 50% 50 Ml Syringe) 25 - 50 ml IV UD PRN; Protocol PRN Reason: Hypoglycemia Protocol Stop: 04/01/21 10:52 Glucagon (Glucagon For Inj 1 Mg Vial) 1 mg SQ UD PRN; Protocol PRN Reason: Hypoglycemia Protocol Stop: 04/01/21 10:52 Glucose (Glucose 10 Tabs/Tube) 4 - 8 tabs PO UD PRN; Protocol PRN Reason: Hypoglycemia Protocol Stop: 04/01/21 10:52 Glucose (Glucose 40% Gel 15 Gm Tube) 15 - 30 gm PO UD PRN; Protocol PRN Reason: Hypoglycemia Protocol Stop: 04/01/21 10:52 Heparin Sodium (Porcine) (Heparin Sod 5,000 Unit/0.5 Ml Vial) 5,000 units SQ Q8 ELODIA Stop: 04/01/21 13:59 Potassium Chloride (K Gonzalo / Wtr) 10 meq in 100 mls @ 100 mls/hr IV Q1H ELODIA Stop: 03/02/21 12:59 Last Infusion: 03/02/21 12:49 Dose: Infused Documented by: Insulin Human Regular 250 (units/ Sodium Chloride) 250 mls @ 2.9 mls/hr IV .Q24H ELODIA; Protocol Stop: 04/01/21 11:14 Last Titration: 03/02/21 12:49 Dose: 3.5 units/hr, 3.5 mls/hr Documented by: Insulin Aspart (Insulin Aspart 100 Units/Ml 3 Ml Pen) 0 units SC ACHS ELODIA Stop: 04/01/21 11:29 Miscellaneous (Carbohydrates For Hypoglycemia ) 15 - 30 gm PO UD PRN PRN Reason: Hypoglycemia Protocol Stop: 04/01/21 10:52 ECG Additional Comments: Normal sinus rhythm Left axis deviation Abnormal ECG When compared with ECG of 18-NOV-2020 20:35, Nonspecific T wave abnormality no longer evident in Inferior leads T wave inversion no longer evident in Anterior leads Code Status & VTE Plan Code Status CODE: FULL VTE: SCD's, Heparin VTE Prophylaxis Plan VTE Prophylaxis will be ordered: Yes Supervising Physician Co-Signing Physician Notes Patient seen and examined at bedside. I obtained history and phsycial examination. I discussed plan of care with patient and APC Ajay. Patient will be admitted for a possible TIA. Will obtain MRI of brain and review. CT head was negative. PG Care Time/CCT Total # of Minutes Spent Total Time Spent with Patient: Total time spent is greater than 50% in coordination of care (as documented) at patient's floor/unit and/or counseling patient: Coding Level of Care Code 68124 Initial Inpt Care Lvl 3 Diagnoses Weakness R53.1 Diabetes type 1, uncontrolled E10.65 Chronic renal disease, stage 3, moderately decreased glomerular filtration rate (GFR) between 30-59 mL/min/1.73 square meter N18.3 Dyslipidemia E78.5 Graves disease E05.00 Hypertension I10 Overweight E66.3
[2021-03-02] MEDS ORDERED: POTASSIUM CHLORIDE CRTAB 20 MEQ TABCR PO PRN (13:11)
[2021-03-02 13:12] LABS: Magnesium 2.1 mg/dl (1.8-2.4); Troponin I < 0.015 ng/ml (0-0.045)
[2021-03-02 13:37] LABS: Estimated Average Glucose 413 mg/dl
[2021-03-02] MEDS ORDERED: PHARMACIST DISCHARGE MED REC CONSULT PRN (14:26)
[2021-03-02 14:37] LABS: Appearance Urine Clear (Clear); Bilirubin Urine Negative (Negative); Blood Urine Negative (Negative); Color Urine Yellow; Glucose Urine UA 3+ (Negative); Ketones Urine Negative (Negative); Leukocyte Esterase Urine Negative (Negative); Nitrite Urine Negative (Negative); Protein Urine Negative (Negative); Urobilinogen Urine Negative (Negative); pH Urine 6.5 (4.5-7.5)
[2021-03-02] MEDS ORDERED: PNEUMOCOCCAL POLYSACCHARIDES 25 MCG/0.5 ML VIAL/SYR IM ONE (14:58)
[2021-03-02] MEDS ORDERED: LACTATED RINGER'S 1,000 ML IV SCH (15:00)
[2021-03-02] MEDS: INSULIN ASPART 100 UNITS/ML 3 ML PEN SC SCH ×4 (15:03→22:08)
--- NOTE | 2021-03-02 15:12 | Electrocardiogram Report ---
Test Reason : Blood Pressure : / mmHG Vent. Rate : 061 BPM Atrial Rate : 061 BPM P-R Int : 196 ms QRS Dur : 100 ms QT Int : 460 ms P-R-T Axes : 055 -42 073 degrees QTc Int : 463 ms Normal sinus rhythm Left axis deviation Abnormal ECG When compared with ECG of 18-NOV-2020 20:35, Nonspecific T wave abnormality no longer evident in Inferior leads T wave inversion no longer evident in Anterior leads Confirmed by Jim Wilkerson ([id number]) on 03/02/2021 3:12:12 PM Referred By: Confirmed By:Jim Wilkerson
--- NOTE | 2021-03-02 15:33 | XCELERA ---
[id number]
[2021-03-02 16:02] LABS: BUN Creatinine Ratio 26.3 (10-20); Calcium 8.5 mg/dl (8.5-10.1); Creatinine Clr Calc Pharmacy 36.2 ml/min; Est GFR (African American) 35.8 ml/min; Est GFR (Non-African American) 30.9 ml/min; Potassium 3.8 mmol/L (3.5-5.1)
[2021-03-02 16:13] LABS: Beta-Hydroxybutyrate 1.24 mg/dl (0.2-2.81)
[2021-03-02] MEDS: HEPARIN SOD 5,000 UNIT/0.5 ML VIAL SQ SCH ×3 (17:08→21:38)
--- NOTE | 2021-03-02 17:16 | Magnetic Resonance Report ---
MR brain wo con HISTORY: 65 years-old Female rule out cva acute strokelike symptoms COMPARISON: Head CT 03/02/2021 TECHNIQUE: Multiplanar multisequence MRI of the brain was obtained without the use of IV contrast. FINDINGS: There is no restricted diffusion to suggest acute or subacute infarct. Partially empty sella. No path ologic blooming artifact. No acute intracranial hemorrhage, midline shift, abnormal extra-axial colle ction, hydrocephalus or intracranial mass. Mild to moderate T2/FLAIR hyperintensities are noted throu ghout the white matter. Cerebral venous sinuses and major arterial flow voids are patent. Mastoid air cells are clear. Mild mucosal thickening of the ethmoid air cells. Prior bilateral lens repair. The skull and soft tissues are unremarkable. IMPRESSION: 1. No acute intracranial abnormality. No acute or subacute infarct. 2. Mild to moderate T2/FLAIR hyperintensities throughout the white matter are suggestive of chronic m icrovascular ischemic disease. ACT 112: Negative or not required by law. The above report was generated using voice recognition software. It may contain grammatical, syntax o r spelling errors. Electronically signed by: Nick Dean M.D. 03/02/2021 5:14 PM
[2021-03-02] MEDS ORDERED: PHARMACY GLYCEMIC MGMT CONSULT PRN (19:12)
[2021-03-02 19:51] LABS: Calcium 8.9 mg/dl (8.5-10.1); Creatinine Clr Calc Pharmacy 37.5 ml/min; Est GFR (African American) 37.4 ml/min; Est GFR (Non-African American) 32.2 ml/min; Potassium 3.8 mmol/L (3.5-5.1)
[2021-03-02] MEDS ORDERED: METOPROLOL SUCC 50MG EXT REL TAB PO SCH (21:00)
[2021-03-02] MEDS ORDERED: GABAPENTIN 600 MG TAB PO SCH (21:00)
[2021-03-02] MEDS ORDERED: ATORVASTATIN 40 MG TAB PO SCH (21:00)
[2021-03-02] MEDS ORDERED: GABAPENTIN 100 MG CAP PO SCH (21:00)
[2021-03-02] MEDS ORDERED: ASPIRIN 81 MG ECTAB PO SCH (21:00)
[2021-03-02] MEDS ORDERED: INSULIN GLARGINE SOLOSTAR 100 UNITS/ML 3 ML PEN SC ONE (22:00)
[2021-03-02 23:00] LABS: BUN Creatinine Ratio 26.5 (10-20); Calcium 8.8 mg/dl (8.5-10.1); Creatinine Clr Calc Pharmacy 38.7 ml/min; Est GFR (African American) 38.8 ml/min; Est GFR (Non-African American) 33.5 ml/min; Potassium 3.3 mmol/L (3.5-5.1)
[2021-03-03] MEDS: INSULIN ASPART 100 UNITS/ML 3 ML PEN SC SCH ×5 (00:56→17:24)
[2021-03-03] MEDS: POTASSIUM CHLORIDE 20 MEQ in LACTATED RINGER'S 1,000 ML IV SCH ×2 (01:13→11:28)
[2021-03-03 03:35] LABS: BUN Creatinine Ratio 27.1 (10-20); Calcium 8.5 mg/dl (8.5-10.1); Creatinine Clr Calc Pharmacy 40.8 ml/min; Est GFR (African American) 41.3 ml/min; Est GFR (Non-African American) 35.6 ml/min; Potassium 3.4 mmol/L (3.5-5.1)
[2021-03-03] MEDS: HEPARIN SOD 5,000 UNIT/0.5 ML VIAL SQ SCH ×2 (06:23→13:46)
[2021-03-03] MEDS ORDERED: LEVOTHYROXINE SODIUM 112 MCG TABLET PO SCH (06:30)
[2021-03-03 06:52] LABS: Basophils # (auto) 0.05 K/uL (0-0.2); Basophils % (auto) 0.6 %; Eosinophils # (auto) 0.25 K/uL (0-0.5); Eosinophils % (auto) 3.1 %; Hematocrit (blood only) 36.7 % (37-47); Hemoglobin 12.8 g/dL (12.0-16.0); Immature Granulocytes # (auto) 0.02 K/uL (0.00-0.02); Immature Granulocytes % (auto) 0.2 %; Lymphocytes # (auto) 2.55 K/uL (1.2-3.4); Lymphocytes % (auto) 31.2 %; Mean Corpuscular Hemoglobin 32.2 pg (25-34); Mean Corpuscular Hgb Conc 34.9 g/dL (32-36); Mean Corpuscular Volume 92.4 fL (80-100); Monocytes # (auto) 0.65 K/uL (0.11-0.59); Monocytes % (auto) 7.9 %; Neutrophils # (auto) 4.66 K/uL (1.4-6.5); Platelet Count 176 K/uL (130-400); RDW Coefficient of Variation 12.8 % (11.5-14.5); RDW Standard Deviation 43.2 fL (36.4-46.3); Red Blood Count 3.97 M/uL (4.2-5.4); White Blood Count 8.18 K/uL (4.8-10.8)
[2021-03-03 07:20] LABS: Estimated Average Glucose 413 mg/dl
[2021-03-03 07:45] LABS: BUN Creatinine Ratio 24.9 (10-20); Calcium 8.7 mg/dl (8.5-10.1); Creatinine Clr Calc Pharmacy 40.8 ml/min; Est GFR (African American) 42.3 ml/min; Est GFR (Non-African American) 36.5 ml/min; Potassium 3.4 mmol/L (3.5-5.1)
[2021-03-03 07:47] LABS: BUN Creatinine Ratio 24.4 (10-20); Calcium 8.6 mg/dl (8.5-10.1); Creatinine Clr Calc Pharmacy 40.8 ml/min; Est GFR (African American) 42.3 ml/min; Est GFR (Non-African American) 36.5 ml/min; Potassium 3.4 mmol/L (3.5-5.1)
[2021-03-03 07:55] LABS: Thyroid Stimulating Hormone 5.3 uIu/ml (0.300-4.500)
[2021-03-03 08:08] LABS: T4 Free Thyroxine 0.92 ng/dl (0.8-1.6)
[2021-03-03] MEDS ORDERED: CHOLECALCIFEROL 1,000 UNITS 25 MCG TAB PO SCH (09:00)
[2021-03-03] MEDS ORDERED: GABAPENTIN 100 MG CAP PO SCH (09:00)
[2021-03-03] MEDS ORDERED: CYANOCOBALAMIN 500 MCG TABLET (VITAMIN B-12) PO SCH (09:00)
[2021-03-03] MEDS ORDERED: hydroCHLOROthiazide 25 MG TAB PO SCH (09:00)
[2021-03-03] MEDS ORDERED: lisinopril 40 MG TAB PO SCH (09:00)
[2021-03-03] MEDS ORDERED: INSULIN GLARGINE SOLOSTAR 100 UNITS/ML 3 ML PEN SC ONE (11:45)
--- NOTE | 2021-03-03 13:36 | Pharmacy Report ---
Pharmacy Glycemic Short Note 2 - Date of Service March 03, 2021 - Glycemic Short BSG Results (Last 24 hours): 03/02/21 03/02/21 03/02/21 13:48 14:35 14:56 Glucose 369 H* POC Glucose 445 H* 353 H* 03/02/21 03/02/21 03/02/21 16:00 17:05 18:42 Glucose POC Glucose 331 H* 201 H 166 H 03/02/21 03/02/21 03/02/21 19:12 19:25 20:25 Glucose 162 H POC Glucose 162 H 130 H 03/02/21 03/02/21 03/02/21 21:34 22:05 22:33 Glucose 173 H POC Glucose 174 H 181 H 03/03/21 03/03/21 03/03/21 00:45 02:50 04:12 Glucose 169 H POC Glucose 175 H 173 H 03/03/21 03/03/21 03/03/21 06:23 06:24 06:57 Glucose 152 H 148 H POC Glucose 160 H 03/03/21 11:04 Glucose POC Glucose 257 H OUTPATIENT ANTIDIABETIC REGIMEN: * Lantus 20 units daily, humalog ? * A1c 16% ASSESSMENT: * 65 year old admitted with hyperglycemia on admission and started on insulin drip, given home Lantus 20 units last night and drip discontinued. * Spoke with patient this morning as Lantus 20 units BID listed on medication list. She states she was on Lantus and was taking 20 units BID then changed to a new insulin vial which she is not sure what type of insulin it was, but was taking 20 units BID * DM educator in to also talk with patient. She states that patient had been taking old insulin at home, since she had run out but only taking Basaglar 20 units daily. Basal dose of 20 units daily is consistent with [facility] outpatient notes and is more likely dosing for Type 1 DM. Per discussion, patient has had issues with insulin coverage in the past. Had been on Vgo 20 and blood sugars were well controlled, but due to lost of coverage had changed over to basal/bolus * Lantus 10 units BID ordered for today, but will likely change back to daily as now insulin dosing confirmed * Per outpatient notes patient had been on short acting insulin 6-6-4 units TIDM. After speaking with DM educator patient reports largest meal so could likely increase supper insulin on discharge PLAN FOR INPATIENT GLYCEMIC CONTROL: * Hold outpatient oral diabetes medications * Basal insulin * Lantus 10 units bid * Transition to 20 units daily tomorrow * Bolus insulin * NovoLog per scale ACHS or Q6hrs while NPO * Goal Range: Low 110 mg/dL - High 140 mg/dL * Correction Factor: 30 mg/dL/unit * Nutritional / Prandial insulin per carb ratio of 1 unit per 9 grams CHO consumed PLAN FOR DISCHARGE: * A1c ~12 % - goal <7% * Confirmed patient on basaglar once daily at home. Currently on 10 units BID during hospital stay. Would recommend continuation of home basal either 10 units bid or 20 units daily per patient preference. If being discharged today 03/03 she got 10 units this AM of Lantus, would continue with 10 units tonight of basaglar and then could consider starting 20 units daily tomorrow after lunch time, then 20 units daily in AM thereafter to help with transition to once daily dosing * Could consider short acting insulin - 6 units TIDM. * Would ensure patient has coverage of both long acting/short acting insulin prior to discharge. Encourage she makes appt with Endo office post discharge as likely insulin adjustments are warranted
[2021-03-03] MEDS ORDERED: POTASSIUM CHLORIDE CRTAB 20 MEQ TABCR PO SCH (14:00)
[2021-03-03] MEDS ORDERED: STROKE PATIENT DISCHARGE STA (18:39)
[2021-03-03] MEDS ORDERED: INSULIN GLARGINE SOLOSTAR 100 UNITS/ML 3 ML PEN SC SCH (21:00)
[2021-03-04] MEDS ORDERED: INSULIN ASPART 100 UNITS/ML 3 ML PEN SC SCH ×2
--- NOTE | 2021-03-04 11:28 | Discharge Summary ---
Date of Service March 03, 2021 Principal Diagnosis TIA Discharge Exam General: awake, alert, no apparent distress Head: Normocephalic, atraumatic ENT: no pharyngeal exudate, mucous membranes dry, Neuro: PERRLA, EOMI, AAO x 3, speech clear and appropriate, strength intact bilaterally 5/5, sensation intact and equal all extremities and dermatomes, no pronator drift, no facial droop, normal coordination, dizziness resolved. NIHSS 0 Chest: equal rise and fall of the chest, no accessory muscle use, no heaves or thrills, Clear to auscultation, on room air, Cardiac: Regular rate and rhythm, telemetry reviewed, skin warm dry, cap refill <3 seconds, peripheral pulses +2 no JVD, no murmur, no JVD, no edema GI: NABS x 4 quadrants, soft, nontender to palpation, no rebound, guarding or tenderness : Spontaneously voiding, no pain, no CVA tenderness, Extremities: Normal inspection, no peripheral edema or erythema, calfs nontender to palpation Psych: Normal mood and affect Skin: no rash or erythema Discharge Data Allergies Allergy/AdvReac Type Severity Reaction Status Date / Time pseudoephedrine Allergy Intermediate swelling Verified 03/02/21 11:37 Consultations 03/02/21 12:08 ED Decision to Admit Stat Ordered Studies 03/02/21 10:40 CT head/brain wo con Stat 03/02/21 14:26 MR brain wo con Routine Hospital Course (1) Weakness: TIA vs. Hyperglycemia - Rapidly resloved symptoms following insulin administration - MRI- negative for stroke, did show microvascular disease, CT of head no acute process - ECHO pending - NIHSS 0 - At discharge, Stop aspirin and will transition to plavix - Continue statin - Continue BB (2) Diabetes type 1, uncontrolled: Hyperglycemia vs. HHS - Insulin drip started in EMD with regular hyperglycemic protocol - If difficulty lowering, will bolus IV insulin and change to weight based - Carb consistent diet - Corrected sodium 141 - Continue with Potassium replacement - patient received 40 PO and 40 IV - HCo3 33 -will discharge on Lantus 20 units daily and novolog 6 units with each meal. (3) Chronic renal disease, stage 3, moderately decreased glomerular filtration rate (GFR) between 30-59 mL/min/1.73 square meter: CKD III likely related to poor glucose control - Baseline MANAGER TRADE 1.9-2.0- - ALLY type I likely pre-renal - Continue with LR at 100 ml per hour - Avoid further nephrotoxic agents (4) Dyslipidemia: Continue statin - LDL at goal. (5) Graves disease: Continue with synthroid TSH in the morning (6) Hypertension: Appears well controlled- on appropriate disease modifying and risk reduction meds - Continue statin - Continue SOHAN - Continue BB (7) Overweight: Continue with diet education and control Total Time Total Time Spent Total Time Spent (In Minutes): 32 Discharge Plan Discharge Items Patient Disposition: Home - Self-Care Reason For Visit: HYPERGLYCEMIA,WEAKNESS Discharge Diagnosis: hyperglycemia, weakness Activity: Resume your previous activity Non-emergency contact: Primary Care Provider Call non-emergency contact if: you have any medication questions Follow-up/Referrals: Taylor Andrews PA-C [Primary Care Provider] - Diet: Carb Consistent or DM2 Addtl Attending Provider Instructions: Risk Factors for Stroke: You can reduce your chances of stroke by working with your medical provider to adopt a healthy lifestyle. Some specific ways to lower your chance of stroke are: * If you are a smoker, now is the time to stop smoking cigarettes * If you are diabetic, improve the control of your blood sugars * Avoid excessive amounts of alcohol * Control high blood pressure * Lose weight if you are overweight * Be sure to lead an active lifestyle * Eat a healthy diet low in salt, cholesterol and fat You should know about other risk factors for stroke that you are unable to control. These include: * Age 55 years or older * Male gender * Certain racial groups: , or / * Family History of Stroke, Mini stroke or Heart Attack * Sickle Cell Disease Follow Up: It is important for you to keep your follow up appointments with your medical provider. Who to Call and When: Medical Emergencies: Call 911 immediately if you experience any of the following warning signs and symptoms of Stroke: * Sudden numbness or weakness of the face, arm or leg, especially on one side of the body * Sudden confusion, trouble speaking or understanding * Sudden trouble seeing in one or both eyes * Sudden trouble walking, dizziness, loss of balance or coordination * Sudden severe headache with no cause Do not delay calling 911 if you experience any warning signs or symptoms of a stroke. Delay in seeking medical attention may affect what treatments can be given to you. . Recommend followup with PCP. You wiill be discharged on plavix instead of Aspirin. Pending Studies at Discharge: No Stand-Alone Forms: [facility], Smoking Cessation Medications and DC Order Prescriptions: New clopidogrel [Plavix] 75 mg tablet 75 mg PO DAILY Qty: 30 RF: 0 insulin aspart U-100 [Novolog Flexpen U-100 Insulin] 100 unit/mL (3 mL) insulin pen 6 unit subcut TIDWMEAL 30 Days Qty: 6 RF: 0 Continued multivitamin tablet 1 tab PO DAILY RF: 0 gabapentin 100 mg capsule See Rx Instructions PO BID RF: 0 hydrochlorothiazide 25 mg tablet 25 mg PO DAILY Qty: 90 RF: 3 (DME) Dexcom G6 Chiropractic Care Misc See Rx Instructions .ROUTE .MEDSUPPLY Qty: 1 RF: 0 (DME) Dexcom G6 Sensor Device See Rx Instructions .ROUTE .MEDSUPPLY Qty: 9 RF: 3 (DME) Dexcom G6 Transmitter Device See Rx Instructions .ROUTE .MEDSUPPLY Qty: 1 RF: 3 (DME) V-GO 20 Device See Rx Instructions .ROUTE .MEDSUPPLY Qty: 90 RF: 3 (DME) OneTouch Verio test strips Strip See Rx Instructions .ROUTE .MEDSUPPLY RF: 0 (DME) lancets [OneTouch Delica Lancets] 33 gauge misc See Rx Instructions [id number] .MEDSUPPLY RF: 0 levothyroxine 112 mcg tablet 112 mcg PO DAILY Qty: 90 RF: 3 calcium citrate 200 mg (950 mg) tablet 600 mg PO DAILY RF: 0 atorvastatin 80 mg tablet 80 mg PO HS RF: 0 lisinopril 40 mg tablet 40 mg PO DAILY RF: 0 cyanocobalamin (vitamin B-12) 1,000 mcg Capsule 1,000 mcg PO DAILY RF: 0 cholecalciferol (vitamin D3) [Vitamin D3] 25 mcg (1,000 unit) Tablet 25 mcg PO DAILY RF: 0 potassium gluconate 600 mg (99 mg) Tablet 99 mg PO DAILY RF: 0 metoprolol succinate [Toprol XL] 50 mg tablet extended release 24 hr 50 mg PO HS RF: 0 Basaglar KwikPen U-100 Insulin 100 unit/mL (3 mL) insulin pen 20 unit SUBCUT DAILY 30 Days Qty: 6 RF: 0 Discontinued aspirin 81 mg Tablet,Delayed Release (Dr/Ec) 81 mg PO HS RF: 0 Humalog U-100 Insulin 100 unit/mL Cartridge 1 unit SUBCUT QDL RF: 0 Discharge Orders: Discharge Order (Routine); Ordered 03/03/21 Ordered By: Jerzy Luna Admission Data Admit Date/Time: 03/02/21 12:25 Attending Provider: Jerzy Luna Admit Provider: Jerzy Luna Primary Care Provider: Taylor Andrews Other Providers: Jerzy Luna ; [facility] Other Interventions: Discharge Summary Assessment (RN) Last Done: 03/03/21 18:41 Coding Level of Care Code 65039 OBS Care - Discharge Diagnoses Weakness R53.1 Diabetes type 1, uncontrolled E10.65 Chronic renal disease, stage 3, moderately decreased glomerular filtration rate (GFR) between 30-59 mL/min/1.73 square meter N18.3 Dyslipidemia E78.5 Graves disease E05.00 Hypertension I10 Overweight E66.3
== END 2021-03-03 19:44 | disposition home or self-care (01) | DRG 638 ==
LOC: ED 09:40 → 2S 12:25
DX: R29.700 NIHSS score 0; N17.9 Acute kidney failure, unspecified; G45.9 Transient cerebral ischemic attack, unspecified; E10.610 Type 1 diabetes mellitus with diabetic neuropathic arthropathy; Z88.8 Allergy status to other drugs, medicaments and biological substances; G83.24 Monoplegia of upper limb affecting left nondominant side; E66.3 Overweight; R47.81 Slurred speech; Z83.3 Family history of diabetes mellitus; E10.65 Type 1 diabetes mellitus with hyperglycemia; I12.9 Hypertensive chronic kidney disease with stage 1 through stage 4 chronic kidney disease, or unspecified chronic kidney disease; E10.40 Type 1 diabetes mellitus with diabetic neuropathy, unspecified; Z79.82 Long term (current) use of aspirin; Z87.891 Personal history of nicotine dependence; E05.00 Thyrotoxicosis with diffuse goiter without thyrotoxic crisis or storm; Z86.73 Personal history of transient ischemic attack (TIA), and cerebral infarction without residual deficits; E78.5 Hyperlipidemia, unspecified; Z82.3 Family history of stroke; N18.30 Chronic kidney disease, stage 3 unspecified; I95.9 Hypotension, unspecified

== ENCOUNTER 2024-05-22 22:28 | Observation (INO) ==
--- NOTE | 2024-05-22 23:26 | Emergency Department Note ---
History of Present Illness General Chief complaint: Hyperglycemia Stated complaint: HYPERGLYCEMIA History of Present Illness Maximum Pain Intensity: 3 This 60-year-old female with type 2 diabetes on insulin presents the ER for hyperglycemia. [facility] because her blood sugar was high. Patient also complains of right sided abdominal pain. She was told she has fatty liver disease. Patient states she has been taking her insulin as directed but did not take it today as she had fasting labs. Patient denies chest pain, dyspnea, fever, chills, cough, congestion, urinary symptoms, flulike illness. Home Medications Medication Instructions Recorded Confirmed Type multivitamin 1 tab PO DAILY 04/03/18 05/23/24 History lisinopril 40 mg tablet 40 mg PO DAILY 06/06/19 05/23/24 History gabapentin 100 mg capsule See Rx Instructions PO BID 05/19/20 05/23/24 History atorvastatin 80 mg tablet 80 mg PO HS 06/09/20 05/23/24 History metoprolol succinate 50 mg 50 mg PO HS 03/02/21 05/23/24 History tablet,extended release 24 hr (Toprol XL) insulin aspart U-100 100 unit/mL 15 unit subcut TID 05/31/22 05/23/24 History (3 mL) subcutaneous pen (Novolog FlexPen U-100 Insulin aspart) blood sugar diagnostic (Accu-Chek 04/25/23 05/23/24 History Guide test strips) calcium carbonate (Calcium 600) 600 mg PO DAILY 04/25/23 05/23/24 History blood-glucose meter,continuous #1 ea 05/09/23 05/23/24 Rx (Dexcom G7 Funeral Car Chauffeur) blood-glucose sensor (Dexcom G7 #3 ea 05/09/23 05/23/24 Rx Sensor device) cholecalciferol (vitamin D3) 25 50 mcg PO DAILY 06/14/23 05/23/24 History mcg (1,000 unit) tablet (Vitamin D3) cyanocobalamin (vitamin B-12) 2,000 mcg PO DAILY 06/14/23 05/23/24 History 1,000 mcg capsule Lantus Solostar U-100 Insulin 100 35 unit (0.35 mL) subcut QPM #45 mL 08/15/23 05/23/24 Rx unit/mL (3 mL) subcutaneous pen (insulin glargine) lancets (Accu-Chek Softclix #100 ea 09/05/23 05/23/24 History Lancets) semaglutide 0.25 mg or 0.5 mg (2 0.75 mg subcut WK 09/05/23 05/23/24 History mg/3 mL) subcutaneous pen injector (Ozempic) spironolactone 100 mg tablet 100 mg PO DAILY #90 tabs 12/13/23 05/23/24 Rx Euthyrox 125 mcg tablet 125 mcg PO DAILY #90 tabs 01/19/24 05/23/24 Rx (levothyroxine) Allergies Allergy/AdvReac Type Severity Reaction Status Date / Time pseudoephedrine Allergy Intermediate swelling Verified 12/13/23 09:23 Past Med/Surg History Problem List Acute UTI (Acute) Mass of ovary (Acute) Ovarian mass UTI (urinary tract infection) Elevated creatine kinase Elevated troponin Acute hyperglycemia (Acute) ALLY (acute kidney injury) (Acute) Vitamin D deficiency Stage 3b chronic kidney disease Diabetic peripheral neuropathy associated with type 1 diabetes mellitus Charcot's joint of foot in type 1 diabetes mellitus Hypothyroidism, postablative Proliferative diabetic retinopathy associated with type 1 diabetes mellitus Diabetic nephropathy associated with type 1 diabetes mellitus Diabetes type 1, uncontrolled Dysesthesia Dyslipidemia Hypertension Status post partial amputation of foot Medical History Acute kidney injury Foot fracture Personal history of diabetic foot ulcer Goiter Graves disease Overweight Osteoarthritis Surgical History 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 History of colonoscopy History of cholecystectomy History of tooth extraction History of tonsillectomy History of cataract surgery RT/LEFT S/P cholecystectomy Family History Sister Diabetes Grandmother (Paternal) Diabetes Father Stroke COPD (chronic obstructive pulmonary disease) Brother Hemochromatosis Social History Smoking Status: Former smoker Cigarettes Per Day: QUIT AT 18; Second Hand Exposure: No; Do You Dip or Chew Tobacco: No; Hx Alcohol Use: Yes Alcohol type: wine Hx Substance Use: No Preferred Language: Swedish Communication Ability: Effective Visual Impairment: No Limitations Hearing Ability: Normal Truck Switcher Required: No Beliefs That Will Affect Care: None Current Living Situation: Alone Current Living Situation Comment: home alone with cat, cares for elderly mother who lives nearby current occupational status: employed current occupation: [employer] How many Children do You have: 0 Feels Safe at Home: Yes Diet: regular caffeine: Yes (1-2 cups tea or coffee daily) during the past year weight has: increased > 10 lbs Physical Activity Frequency: Does not Exercise Gender Identity: Female Assistive Devices: Glasses Physical Exam Vital Signs Vital Signs - 24 hr 05/22/24 22:32 05/22/24 22:55 05/22/24 23:51 Temperature 36.3 C L Temperature Source Temporal Artery Scan Pulse Rate 83 79 74 Pulse Rhythm Regular Respiratory Rate 18 18 Respiratory Effort / Characteristics Non-Labored Spontaneous Respiratory Depth Normal Respiratory Pattern Regular Blood Pressure 197/107 H Blood Pressure Mean 137 Pulse Oximetry 97 99 Oxygen Delivery Method Room Air Room Air Sepsis Recent Fever Within 48 Hours No Sepsis New/Unexplained Change in Mental Status N/A Sepsis Action Taken by Nursing No Action Required VITALS: Vitals are noted on the nurse's note and reviewed by myself. Vital signs stable. GENERAL: Pleasant female, in no acute distress, nondiaphoretic, well-developed well-nourished. SKIN: The skin was without rashes, erythema, edema, or bruising. There is no tenting of the skin. Capillary reflex less than 2 seconds. HEAD: Normocephalic atraumatic. EARS: External auditory canals clear EYES: Pupils equal round and reactive to light and accommodation. Conjunctivae without injection, sclerae without icterus. Extraocular movements intact. NOSE: Patent, no discharge. MOUTH: Mucous membranes moist. Pharynx without erythema or exudate. Uvula midline. Airway patent. Tongue does not deviate. NECK: Supple without nuchal rigidity. No lymphadenopathy. No thyromegaly. Cervical spine is nontender. No JVD. HEART: Regular rate and rhythm LUNGS: Clear to auscultation bilaterally without wheezes, rales or rhonchi. No retractions or accessory muscle use. ABDOMEN: Positive bowel sounds x 4. Normal tympanic percussion. Soft, tender right side of abdomen, without masses or organomegaly. Winchester sign negative. No guarding or rebound tenderness. No CVA tenderness MUSCULOSKELETAL: No muscle atrophy, erythema, or edema noted. NEURO: Patient was alert and oriented to person place and time. Normal sensation to light and sharp touch. No focal neurological deficits. Course Administered Medications Discontinued Medications Sodium Chloride (Nss) 1,000 mls @ 999 mls/hr IV .Q1H1M ELODIA Stop: 05/23/24 01:30 Last Admin: 05/23/24 00:06 Dose: 999 mls/hr Documented By: Infusion: 05/23/24 00:06 Dose: Infused Documented By: [facility] Admin: 05/22/24 23:53 Dose: 999 mls/hr Documented By: JÚNIOR Insulin Human Regular (Novolin-R Insulin Per Unit Charge) 10 units IV NOW STA Stop: 05/23/24 00:11 Last Admin: 05/23/24 00:20 Dose: 10 units Documented By: JÚNIOR Co-signed By: NINI Medical Decision Making Medical Records Attestation: I reviewed the patient's medical records. Home Medications Current Medication List: was personally reviewed by wv Laboratory Data Attestation: I reviewed the patient's lab results. 05/22/24 22:46 05/22/24 22:46 Lab Results 05/22/24 05/22/24 05/22/24 Range/Units 22:33 22:46 23:40 WBC 7.54 (4.8-10.8) K/ul RBC 4.41 (4.20-5.40) M/uL Hgb 14.1 (12.0-16.0) g/dl Hct 40.9 (37.0-47.0) % MCV 92.7 (80.0-100.0) fL MCH 32.0 (25.0-34.0) pg MCHC 34.5 (32.0-36.0) g/dL RDW Std Deviation 42.4 (36.4-46.3) fL RDW Coeff of Hattie 12.4 (11.5-14.5) % Plt Count 172 (130-400) K/uL MPV 12.9 H (9.4-12.4) fL Immature Gran % (Auto) 0.3 % Neut % (Auto) 53.3 % Lymph % (Auto) 30.6 % [place] % (Auto) 10.5 % Eos % (Auto) 3.7 % Baso % (Auto) 1.6 % Neut # (Auto) 4.02 (1.40-6.50) K/uL Lymph # (Auto) 2.31 (1.20-3.40) K/uL [place] # (Auto) 0.79 H (0.11-0.59) K/uL Eos # (Auto) 0.28 (0.00-0.50) K/uL Baso # (Auto) 0.12 (0.00-0.20) K/uL Immature Gran # (Auto) 0.02 (0.01-0.20) K/uL VBG pH 7.38 (7.36-7.41) VBG pCO2 44 (38-50) mmHg VBG pO2 42 mmHg VBG HCO3 26 mmol/L VBG O2 Saturation 71.6 % VBG Base Excess 0.5 mEq/L Sodium 132 L (136-145) mmol/L Potassium 3.9 (3.5-5.1) mmol/L Chloride 94 L (98-107) mmol/L Carbon Dioxide 26 (21-32) mmol/L Anion Gap 12 H (3-11) BUN 45 H (6-23) mg/dl Creatinine 2.30 H (0.6-1.2) mg/dl Est Cr Clr Drug Dosing 26.9 ml/min eGFR 22.59 BUN/Creatinine Ratio 19.6 (10-20) Glucose 513 H* (70-99(Fasting)) mg/dl POC Glucose 507 H* (70-99) mg/dl Lactate 2.1 H* (0.4-2.0) mmol/L Calcium 9.5 (8.6-10.3) mg/dl Magnesium 2.2 (1.7-2.4) mg/dl Total Bilirubin 0.6 (0.2-1.0) mg/dl AST 21 (13-39) U/L ALT 26 (7-52) U/L Alkaline Phosphatase 55 (34-104) U/L Total Creatine Kinase 393 H (26-192) U/L Troponin I High Sens 22.9 H (0-14) pg/ml Total Protein 7.7 (6.0-8.3) gm/dl Albumin 4.5 (3.4-5.0) gm/dl Globulin 3.2 (2.5-4.0) gm/dl Albumin/Globulin Ratio 1.4 (0.9-2) TSH 7.718 H (0.300-4.500) uIu/ml Free T4 1.04 (0.61-1.60) ng/dl Adenovirus (PCR) Not Detected (NotDetected) B. pertussis DNA (PCR) Not Detected (NotDetected) B.parapertussis DNA PCR Not Detected (NotDetected) C. pneumoniae DNA (PCR) Not Detected (NotDetected) Coronavirus OC43 (PCR) Not Detected (NotDetected) Coronavirus HKU1 (PCR) Not Detected (NotDetected) Coronavirus 229E (PCR) Not Detected (NotDetected) SARS-CoV-2 (PCR) Not Detected (NotDetected) Coronavirus NL63 (PCR) Not Detected (NotDetected) Human Metapneumovir PCR Not Detected (NotDetected) Influenza Type A (PCR) Not Detected (NotDetected) Influenza Type B (PCR) Not Detected (NotDetected) M. pneumoniae (PCR) Not Detected (NotDetected) Parainfluenza 1 (PCR) Not Detected (NotDetected) Parainfluenza 2 (PCR) Not Detected (NotDetected) Parainfluenza 3 (PCR) Not Detected (NotDetected) Parainfluenza 4 (PCR) Not Detected (NotDetected) RSV (PCR) Not Detected (NotDetected) Entero/Rhino (PCR) Not Detected (NotDetected) Imaging Data Attestation: I personally reviewed and interpreted this imaging study as follows: Radiologist's Impression: Abdomen/Pelvis CT 05/23/24 00:03 Exam(s): CT ABDOMEN + PELVIS Without Contrast EXAM: CT Abdomen and Pelvis Without Intravenous Contrast CLINICAL HISTORY: Reason for exam: right abd pain, DKA, ALLY. TECHNIQUE: Axial computed tomography images of the abdomen and pelvis without intravenous contrast. CTDI is 26.44 mGy and DLP is 1356.31 mGy-cm. Automated exposure control was utilized for the study. A dose lowering technique was utilized adhering to the principles of ALARA. COMPARISON: No relevant prior studies available. FINDINGS: Lung bases: Unremarkable. ABDOMEN: Liver: Hepatomegaly and steatosis. Gallbladder and bile ducts: Cholecystectomy. No ductal dilation. Pancreas: Unremarkable. No ductal dilation. Spleen: Unremarkable. No splenomegaly. Adrenals: Unremarkable. No mass. Kidneys and ureters: Unremarkable. No obstructing stones. No hydronephrosis. Stomach and bowel: No bowel obstruction. Distal colonic diverticula. No mucosal thickening. PELVIS: Appendix: No evidence of appendicitis. Bladder: Unremarkable. No stones. Normal urinary bladder. Small focus of intraluminal gas suggesting recent instrumentation. Reproductive: Unremarkable uterus. Complex right adnexal mass measuring 8.6 x 7.6 x 6.1 cm, raising concern for ovarian neoplasm. ABDOMEN and PELVIS: Intraperitoneal space: Unremarkable. No free air, significant free fluid, or fluid collection. Bones/joints: Degenerative changes in the lumbar spine. No acute fracture. No dislocation. Soft tissues: Unremarkable. Vasculature: Atherosclerosis without aortic aneurysm. Lymph nodes: Unremarkable. No enlarged lymph nodes. IMPRESSION: Complex right adnexal mass measuring 8.6 x 7.6 x 6.1 cm, raising concern for ovarian neoplasm. Consider follow-up evaluation with pelvic ultrasound. VP ANALYSIS recommended for further management. No free fluid. No evidence of carcinomatosis. Electronically signed by: Edd Ma M.D. 05/23/24 00:59 AM MDM Narrative Prior records/ancillary studies reviewed and summarized above. Nursing notes reviewed. Additional history obtained from nurse. The patient's history was concerning for hyperglycemia and abdominal pain. Differential diagnosis: Etiologies such as metabolic, infection, hypo/hyperglycemia, electrolyte abnormalities, cardiac sources, intracerebral event, toxicologic, neurologic, as well as others were entertained. Physical examination: As above. ER treatment provided: IV Lock An order was placed for continuous cardiac monitoring. The monitor shows a rate of 60-100 with a sinus rhythm per my interpretation. IV fluids was ordered Rocephin was ordered for UTI On reassessment the patient felt better. Diagnostics interpretation by me: ECG: Ordered for weakness EKG: Normal sinus, left axis, no acute ST-T wave changes, rate 80. Impression normal sinus rhythm with a left axis deviation independently interpreted by myself The labs Independently Interpreted by myself revealed hyperglycemia without DKA. Normal VBG, acute kidney injury, negative BioFire Minimally elevated troponin, EKG is nonischemic, minimally elevated TSH and T4 was sent. Urine concerning for infection sent for culture. No prior culture for review Imaging studies: Chest x-ray with no acute consolidation, pneumothorax or free air per my independent interpretation CT was reviewed and read by radiology as above Consultation: A consultation was placed with the hospitalist. The case was discussed and diagnostics were reviewed. The patient was evaluated in the ER for further treatment. Exam and history seem consistent with acute kidney injury with hyperglycemia most likely being caused from the UTI with finding of a right ovarian mass on CAT scan. Patient most likely she is dehydrated. She was hydrated as above. She was not DKA. Medicine is consulted case discussed. She will be admitted to the medical service. Medicine will consult LEATHER FITTER and ultrasound was placed. By the evaluation outlined above emergent etiologies such as cardiac sources, intracerebral event, toxologic, neurologic, metabolic, as well as others were deemed relatively unlikely. The pt informed about the findings as listed above. All questions were answered and pleased with the treatment. The chart was completed utilizing [employer] Speech voice recognition software. Grammatical errors, random word insertions, pronoun errors, and incomplete sentences are an occassional consequence of this system due to software limitations, ambient noise, and hardware issues. Any formal questions or concerns about the content, text, or information contained within the body of this dictation should be directly addressed to the physician assistant housekeeping manager for clarification. Impression & Plan ALLY (acute kidney injury), Acute hyperglycemia, Mass of ovary, Acute UTI Discharge Plan Visit Data Chief Complaint: Hyperglycemia Stated Complaint: HYPERGLYCEMIA ED Provider: Manuel Peralta ED Midlevel Provider: Tonya Torres Discharge Problem: ALLY (acute kidney injury), Acute hyperglycemia, Mass of ovary, Acute UTI Patient Disposition: Admitted As Inpatient Condition: Fair Discharge Instructions Interventions: ED Discharge Assessment Last Done: 05/23/24 00:59
[2024-05-22 23:28] LABS: Basophils # (auto) 0.12 K/uL (0.00-0.20); Basophils % (auto) 1.6 %; Eosinophils # (auto) 0.28 K/uL (0.00-0.50); Eosinophils % (auto) 3.7 %; Hematocrit (blood only) 40.9 % (37.0-47.0); Hemoglobin 14.1 g/dl (12.0-16.0); Immature Granulocytes # (auto) 0.02 K/uL (0.01-0.20); Immature Granulocytes % (auto) 0.3 %; Lymphocytes # (auto) 2.31 K/uL (1.20-3.40); Lymphocytes % (auto) 30.6 %; Mean Corpuscular Hgb Conc 34.5 g/dL (32.0-36.0); Mean Corpuscular Volume 92.7 fL (80.0-100.0); Mean Platelet Volume 12.9 fL (9.4-12.4); Monocytes # (auto) 0.79 K/uL (0.11-0.59); Monocytes % (auto) 10.5 %; Neutrophils # (auto) 4.02 K/uL (1.40-6.50); Neutrophils % (auto) 53.3 %; Platelet Count 172 K/uL (130-400); RDW Coefficient of Variation 12.4 % (11.5-14.5); RDW Standard Deviation 42.4 fL (36.4-46.3); Red Blood Count 4.41 M/uL (4.20-5.40); White Blood Count 7.54 K/ul (4.8-10.8)
[2024-05-22 23:52] LABS: Base Excess VBG 0.5 mEq/L; HCO3 VBG 26 mmol/L; Oxygen Saturation VBG 71.6 %; PCO2 VBG 44 mmHg (38-50); PO2 VBG 42 mmHg; pH VBG 7.38 (7.36-7.41)
[2024-05-22] MEDS: SODIUM CHLORIDE 0.9% 1,000 ML IV SCH (23:53)
[2024-05-22 23:56] LABS: Albumin Globulin Ratio 1.4 (0.9-2); Albumin Level 4.5 gm/dl (3.4-5.0); BUN Creatinine Ratio 19.6 (10-20); Bilirubin,Total 0.6 mg/dl (0.2-1.0); Calcium 9.5 mg/dl (8.6-10.3); Creatinine Clr Calc Pharmacy 26.9 ml/min; Globulin 3.2 gm/dl (2.5-4.0); Magnesium 2.2 mg/dl (1.7-2.4); Potassium 3.9 mmol/L (3.5-5.1); Thyroid Stimulating Hormone 7.718 uIu/ml (0.300-4.500); Total Protein 7.7 gm/dl (6.0-8.3); Troponin I High Sensitivity 22.9 pg/ml (0-14)
[2024-05-23] LABS: Adenovirus PCR Not Detected (NotDetected); Bordetella parapertussis PCR Not Detected (NotDetected); Bordetella pertussis PCR Not Detected (NotDetected); Chlamydia pneumoniae PCR Not Detected (NotDetected); Coronavirus 229E PCR Not Detected (NotDetected); Coronavirus CoV-2 (COVID19)PCR Not Detected (NotDetected); Coronavirus HKU1 PCR Not Detected (NotDetected); Coronavirus NL63 PCR Not Detected (NotDetected); Coronavirus OC43PCR Not Detected (NotDetected); Human Metapneumovirus PCR Not Detected (NotDetected); Influenza A PCR Not Detected (NotDetected); Influenza B PCR Not Detected (NotDetected); Mycoplasma pneumoniae PCR Not Detected (NotDetected); Parainfluenza Virus 1 PCR Not Detected (NotDetected); Parainfluenza Virus 2 PCR Not Detected (NotDetected); Parainfluenza Virus 3 PCR Not Detected (NotDetected); Parainfluenza Virus 4 PCR Not Detected (NotDetected); Respiratory Syncytial VirusPCR Not Detected (NotDetected); Rhinovirus/Enterovirus PCR Not Detected (NotDetected)
--- NOTE | 2024-05-23 00:14 | History & Physical Report ---
Date of Service May 23, 2024 Assessment & Plan (1) Acute hyperglycemia: Plan: 68yo female with poorly controlled DM - last [id number]=54.8 on 01/24/24. She is on insulin therapy as well as semaglutide. Has not been taking her Novolog as prescribed due to difficulty taking it at work. Unfortunately ran out of lantus several days ago. Likely cause of patient's current hyperglycemia. No acidosis or anion gap. Patient has been ordered 2L NSS + 10u of regular IV Insulin for now. -Admit to medical -BSG q 2 hours for now until stable -Continue Lantus - 15u BID -Novolog with CF 20, CR 8 -Goal blood sugar 110 - 180 -Check HgbA1C -Continue Gabapentin for neuropathy (2) ALLY (acute kidney injury): Plan: Patient with elevation of BUN and Cr from baseline. Electrolytes are acceptable. She follows with Nephrology for CKD. Reports normal UOP -Renal dosing where needed -Monitor UOP -Repeat chemistry in AM (3) Elevated troponin: Plan: Patient with elevated troponin on arrival at 22.9. No chest pain. No ischemic changes on EKG -Repeat pending (4) Elevated creatine kinase: Plan: Patient with mild elevation in creatine kinase = 393. Has been given 2L NSS thus far -Continue NSS at 80mL/hr x 1L -Repeat CK in AM -Holding Atorvastatin for now (5) UTI (urinary tract infection): Plan: Urinalysis suggestive of infection. Patient is afebrile. Does note polyuria at baseline -Follow culture -Ceftriaxone 2gm IV daily (6) Ovarian mass: Plan: Patient noted to have a complex appearing mass on CT abdomen concerning for possible ovarian mass. She does admit to some abdominal bloating and discomfort at times -TVUS ordered -Gynecology consultation appreciated [facility] Chronic Medical Conditions: Hyperlipidemia - chronic, stable Hold Lipitor in setting of mildly elevated CK Hypothyroidism - chronic, stable - post ablative -Continue Synthroid 125mcg po daily Hypertension - chronic, elevated BP in the ER -Continue metoprolol 50mg po qHS -Holding Spironolactone and Lisinopril due to elevated Cr at present -Hydralazine PRN hypertensive urgency 180/110 History of Present Illness Chief Complaint: hyperglycemia Primary Care Provider: MAYRA Hernandez Zi is a 68yo female with history of DM-Type I with peripheral neuropathy, HTN presenting with hyperglycemia. Patient report having a headache and some neck pain three days ago as well as some nausea. She had routine blood work obtained at the [facility] and was contacted today due to hyperglycemia and told to come to the hospital for management. Patient reports feeling ill all day with headache and nausea. She drinks a lot of fluid and urinates a lot at baseline and did not notice a difference in this. She has been taking her Novolog but not as prescribed. She typically does not take it while at work She ran out of her Lantus a couple of days ago so has not had any long acting insulin on board. No report of fever, chills, chest pain, cough, SOB. She has persistent RUQ abdominal pain for the last 6 months - thought to be due to fatty liver No additional complaints at this time In the ER patient found to be hyperglycemic with AFM=[id number] ER Course: NSS x 2L Allergies Allergy/AdvReac Type Severity Reaction Status Date / Time pseudoephedrine Allergy Intermediate swelling Verified 12/13/23 09:23 Home Medications Medication Instructions Recorded Confirmed Type multivitamin 1 tab PO DAILY 04/03/18 05/23/24 History lisinopril 40 mg tablet 40 mg PO DAILY 06/06/19 05/23/24 History gabapentin 100 mg capsule See Rx Instructions PO BID 05/19/20 05/23/24 History atorvastatin 80 mg tablet 80 mg PO HS 06/09/20 05/23/24 History metoprolol succinate 50 mg 50 mg PO HS 03/02/21 05/23/24 History tablet,extended release 24 hr (Toprol XL) insulin aspart U-100 100 unit/mL 15 unit subcut TID 05/31/22 05/23/24 History (3 mL) subcutaneous pen (Novolog FlexPen U-100 Insulin aspart) blood sugar diagnostic (Accu-Chek 04/25/23 05/23/24 History Guide test strips) calcium carbonate (Calcium 600) 600 mg PO DAILY 04/25/23 05/23/24 History blood-glucose meter,continuous #1 ea 05/09/23 05/23/24 Rx (Dexcom G7 Power Systems Engineer) blood-glucose sensor (Dexcom G7 #3 ea 05/09/23 05/23/24 Rx Sensor device) cholecalciferol (vitamin D3) 25 50 mcg PO DAILY 06/14/23 05/23/24 History mcg (1,000 unit) tablet (Vitamin D3) cyanocobalamin (vitamin B-12) 2,000 mcg PO DAILY 06/14/23 05/23/24 History 1,000 mcg capsule Lantus Solostar U-100 Insulin 100 35 unit (0.35 mL) subcut QPM #45 mL 08/15/23 05/23/24 Rx unit/mL (3 mL) subcutaneous pen (insulin glargine) lancets (Accu-Chek Softclix #100 ea 09/05/23 05/23/24 History Lancets) semaglutide 0.25 mg or 0.5 mg (2 0.75 mg subcut WK 09/05/23 05/23/24 History mg/3 mL) subcutaneous pen injector (Ozempic) spironolactone 100 mg tablet 100 mg PO DAILY #90 tabs 12/13/23 05/23/24 Rx Euthyrox 125 mcg tablet 125 mcg PO DAILY #90 tabs 01/19/24 05/23/24 Rx (levothyroxine) Past Med/Surg History Problem List Ovarian mass UTI (urinary tract infection) Elevated creatine kinase Elevated troponin Acute hyperglycemia (Acute) ALLY (acute kidney injury) (Acute) Vitamin D deficiency Stage 3b chronic kidney disease Diabetic peripheral neuropathy associated with type 1 diabetes mellitus Charcot's joint of foot in type 1 diabetes mellitus Hypothyroidism, postablative Proliferative diabetic retinopathy associated with type 1 diabetes mellitus Diabetic nephropathy associated with type 1 diabetes mellitus Diabetes type 1, uncontrolled Dysesthesia Dyslipidemia Hypertension Status post partial amputation of foot Medical History Acute kidney injury Foot fracture Personal history of diabetic foot ulcer Goiter Graves disease Overweight Osteoarthritis Surgical History 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 History of colonoscopy History of cholecystectomy History of tooth extraction History of tonsillectomy History of cataract surgery RT/LEFT S/P cholecystectomy Family History Sister Diabetes Grandmother (Paternal) Diabetes Father Stroke COPD (chronic obstructive pulmonary disease) Brother Hemochromatosis Social History Smoking Status: Former smoker Cigarettes Per Day: QUIT AT 18; Second Hand Exposure: No; Do You Dip or Chew Tobacco: No; Hx Alcohol Use: Yes Alcohol type: wine Hx Substance Use: No Preferred Language: [place] Communication Ability: Effective Visual Impairment: No Limitations Hearing Ability: Normal Principal Quality Engineer Required: No Beliefs That Will Affect Care: None Current Living Situation: Alone Current Living Situation Comment: home alone with cat, cares for elderly mother who lives nearby current occupational status: employed current occupation: retail @ [employer] How many Children do You have: 0 Feels Safe at Home: Yes Diet: regular caffeine: Yes (1-2 cups tea or coffee daily) during the past year weight has: increased > 10 lbs Physical Activity Frequency: Does not Exercise Gender Identity: Female Assistive Devices: Glasses Review of Systems Review of Systems: All systems reviewed & are unremarkable except as noted in HPI & below Physical Exam Physical Exam: General: patient resting comfortably, NAD, non-toxic in appearance, AA&O x 4 Skin: warm, dry, intact, no rashes or lesions HEENT: NC/AT, PERRL, EOMI, anicteric sclera, conjunctiva without injection, ex ternal ear normal to inspection and nontender, nares patent, moist mucus membranes, dentition intact, no oropharyngeal lesions, neck supple, trachea midline, no LAD, no thyromegaly, no JVD Heart: +S1/S2, regular, no m/r/g Lungs: equal air entry bilaterally, no rales/rhonchi/wheezes Abd: +BS, soft, ND, tender in RUQ without rebound/guarding/peritonitis, no masses/organomegaly/ascites Ext: warm, 2+ pulses in UE/LE bilaterally, no clubbing/cyanosis or edema, Charcot deformity of right foot Neuro: nonfocal, patient AA&O x 4, speech intact, no facial droop, moving all extremities on command with equal strength 5/5 Results & Data Results & Data Vital Signs (Past 12 Hours) Vital Signs Temp Pulse Resp BP Pulse Ox O2 Del Method 05/22/24 23:51 74 18 99 Room Air 05/22/24 22:55 79 05/22/24 22:32 36.3 C L 83 18 197/107 H 97 Room Air Laboratory Results Laboratory Results WBC 7.54 K/ul (4.8-10.8) 05/22/24 22:46 RBC 4.41 M/uL (4.20-5.40) 05/22/24 22:46 Hgb 14.1 g/dl (12.0-16.0) 05/22/24 22:46 Hct 40.9 % (37.0-47.0) 05/22/24 22:46 MCV 92.7 fL (80.0-100.0) 05/22/24 22:46 MCH 32.0 pg (25.0-34.0) 05/22/24 22:46 MCHC 34.5 g/dL (32.0-36.0) 05/22/24 22:46 RDW Std Deviation 42.4 fL (36.4-46.3) 05/22/24 22:46 RDW Coeff of Hattie 12.4 % (11.5-14.5) 05/22/24 22:46 Plt Count 172 K/uL (130-400) 05/22/24 22:46 MPV 12.9 fL (9.4-12.4) H 05/22/24 22:46 Immature Gran % (Auto) 0.3 % 05/22/24 22:46 Neut % (Auto) 53.3 % 05/22/24 22:46 Lymph % (Auto) 30.6 % 05/22/24 22:46 Greenlee % (Auto) 10.5 % 05/22/24 22:46 Eos % (Auto) 3.7 % 05/22/24 22:46 Baso % (Auto) 1.6 % 05/22/24 22:46 Neut # (Auto) 4.02 K/uL (1.40-6.50) 05/22/24 22:46 Lymph # (Auto) 2.31 K/uL (1.20-3.40) 05/22/24 22:46 Greenlee # (Auto) 0.79 K/uL (0.11-0.59) H 05/22/24 22:46 Eos # (Auto) 0.28 K/uL (0.00-0.50) 05/22/24 22:46 Baso # (Auto) 0.12 K/uL (0.00-0.20) 05/22/24 22:46 Immature Gran # (Auto) 0.02 K/uL (0.01-0.20) 05/22/24 22:46 VBG pH 7.38 (7.36-7.41) 05/22/24 23:40 VBG pCO2 44 mmHg (38-50) 05/22/24 23:40 VBG pO2 42 mmHg 05/22/24 23:40 VBG HCO3 26 mmol/L 05/22/24 23:40 VBG O2 Saturation 71.6 % 05/22/24 23:40 VBG Base Excess 0.5 mEq/L 05/22/24 23:40 Sodium 132 mmol/L (136-145) L 05/22/24 22:46 Potassium 3.9 mmol/L (3.5-5.1) 05/22/24 22:46 Chloride 94 mmol/L (98-107) L 05/22/24 22:46 Carbon Dioxide 26 mmol/L (21-32) 05/22/24 22:46 Anion Gap 12 (3-11) H 05/22/24 22:46 BUN 45 mg/dl (6-23) H 05/22/24 22:46 Creatinine 2.30 mg/dl (0.6-1.2) H 05/22/24 22:46 Est Cr Clr Drug Dosing 26.9 ml/min 05/22/24 22:46 eGFR 22.59 05/22/24 22:46 BUN/Creatinine Ratio 19.6 (10-20) 05/22/24 22:46 Glucose 513 mg/dl (70-99(Fasting)) H* 05/22/24 22:46 POC Glucose 507 mg/dl (70-99) H* 05/22/24 22:33 Lactate 2.1 mmol/L (0.4-2.0) H* 05/22/24 23:40 Calcium 9.5 mg/dl (8.6-10.3) 05/22/24 22:46 Magnesium 2.2 mg/dl (1.7-2.4) 05/22/24 22:46 Total Bilirubin 0.6 mg/dl (0.2-1.0) 05/22/24 22:46 AST 21 U/L (13-39) 05/22/24 22:46 ALT 26 U/L (7-52) 05/22/24 22:46 Alkaline Phosphatase 55 U/L (34-104) 05/22/24 22:46 Total Creatine Kinase 393 U/L (26-192) H 05/22/24 22:46 Troponin I High Sens 22.9 pg/ml (0-14) H 05/22/24 22:46 Total Protein 7.7 gm/dl (6.0-8.3) 05/22/24 22:46 Albumin 4.5 gm/dl (3.4-5.0) 05/22/24 22:46 Globulin 3.2 gm/dl (2.5-4.0) 05/22/24 22:46 Albumin/Globulin Ratio 1.4 (0.9-2) 05/22/24 22:46 TSH 7.718 uIu/ml (0.300-4.500) H 05/22/24 22:46 Free T4 1.04 ng/dl (0.61-1.60) 05/22/24 22:46 Adenovirus (PCR) Not Detected (NotDetected) 05/22/24 22:46 B. pertussis DNA (PCR) Not Detected (NotDetected) 05/22/24 22:46 B.parapertussis DNA PCR Not Detected (NotDetected) 05/22/24 22:46 C. pneumoniae DNA (PCR) Not Detected (NotDetected) 05/22/24 22:46 Coronavirus OC43 (PCR) Not Detected (NotDetected) 05/22/24 22:46 Coronavirus HKU1 (PCR) Not Detected (NotDetected) 05/22/24 22:46 Coronavirus 229E (PCR) Not Detected (NotDetected) 05/22/24 22:46 SARS-CoV-2 (PCR) Not Detected (NotDetected) 05/22/24 22:46 Coronavirus NL63 (PCR) Not Detected (NotDetected) 05/22/24 22:46 Human Metapneumovir PCR Not Detected (NotDetected) 05/22/24 22:46 Influenza Type A (PCR) Not Detected (NotDetected) 05/22/24 22:46 Influenza Type B (PCR) Not Detected (NotDetected) 05/22/24 22:46 M. pneumoniae (PCR) Not Detected (NotDetected) 05/22/24 22:46 Parainfluenza 1 (PCR) Not Detected (NotDetected) 05/22/24 22:46 Parainfluenza 2 (PCR) Not Detected (NotDetected) 05/22/24 22:46 Parainfluenza 3 (PCR) Not Detected (NotDetected) 05/22/24 22:46 Parainfluenza 4 (PCR) Not Detected (NotDetected) 05/22/24 22:46 RSV (PCR) Not Detected (NotDetected) 05/22/24 22:46 Entero/Rhino (PCR) Not Detected (NotDetected) 05/22/24 22:46 Diagnostic Findings CXR - per my interpretation - no obvious infiltrate, edema or PTX [facility] [place] [phone] CT Scan Report Patient: DAVID CORNELIUS Admit Date: 05/22/24 MR#: [id number] Address1: [address] [place] [address] Acct ID:[id number] Address2: [place] [address] Date: 1955 [facility] Zip: [place] [address] Age: 68 Location: ED Sex: F Room/Bed: Att Phy: Diagnosis: HYPERGLYCEMIA Janet Phy: Taylor Alfaro PA-C Service Date: 05/23/24 [facility] Phy: Interpreting Phy: Edd Ma MDAdmit Phy: Ordering Phy: Tonya Torres PA-C cc: ~ Exam(s): CT ABDOMEN + PELVIS Without Contrast EXAM: CT Abdomen and Pelvis Without Intravenous Contrast CLINICAL HISTORY: Reason for exam: right abd pain, DKA, ALLY. TECHNIQUE: Axial computed tomography images of the abdomen and pelvis without intravenous contrast. CTDI is 26.44 mGy and DLP is 1356.31 mGy-cm. Automated exposure control was utilized for the study. A dose lowering technique was utilized adhering to the principles of ALARA. COMPARISON: No relevant prior studies available. FINDINGS: Lung bases: Unremarkable. ABDOMEN: Liver: Hepatomegaly and steatosis. Gallbladder and bile ducts: Cholecystectomy. No ductal dilation. Pancreas: Unremarkable. No ductal dilation. Spleen: Unremarkable. No splenomegaly. Adrenals: Unremarkable. No mass. Kidneys and ureters: Unremarkable. No obstructing stones. No hydronephrosis. Stomach and bowel: No bowel obstruction. Distal colonic diverticula. No mucosal thickening. PELVIS: Appendix: No evidence of appendicitis. Bladder: Unremarkable. No stones. Normal urinary bladder. Small focus of intraluminal gas suggesting recent instrumentation. Reproductive: Unremarkable uterus. Complex right adnexal mass measuring 8.6 x 7.6 x 6.1 cm, raising concern for ovarian neoplasm. ABDOMEN and PELVIS: Intraperitoneal space: Unremarkable. No free air, significant free fluid, or fluid collection. Bones/joints: Degenerative changes in the lumbar spine. No acute fracture. No dislocation. Soft tissues: Unremarkable. Vasculature: Atherosclerosis without aortic aneurysm. Lymph nodes: Unremarkable. No enlarged lymph nodes. IMPRESSION: Complex right adnexal mass measuring 8.6 x 7.6 x 6.1 cm, raising concern for ovarian neoplasm. Consider follow-up evaluation with pelvic ultrasound. COUNTERINTELLIGENCE AGENT recommended for further management. No free fluid. No evidence of carcinomatosis. Electronically signed by: Edd Ma M.D. 05/23/24 00:59 AM Dictated: 05/23/2458 Transcribed: 05/23/2458 ECG Additional Comments: EKG wth NSR at 80bpm, left axis, FU=008, QRS=90, HWi=118, no acute ischemic changes PG Care Time/CCT Total # of Minutes Spent Total Time Spent with Patient: Total time spent is greater than 50% in coordination of care (as documented) at patient's floor/unit and/or counseling patient: Coding Level of Care Code 14926 INT INP/OBS CARE 3/75MIN Diagnoses Acute hyperglycemia R73.9 ALLY (acute kidney injury) N17.9 Elevated troponin R79.89 Elevated creatine kinase R74.8 UTI (urinary tract infection) N39.0 Ovarian mass N83.8
--- NOTE | 2024-05-23 00:15 | Emergency Department Note ---
ED Visit Note The patient was seen and examined with Brian. I performed a substantive portion of all aspects of the medical decision making and agree with the h istory, physical and findings. Please see the note for disposition and details. . .
[2024-05-23] MEDS: NovoLIN-R INSULIN PER UNIT CHARGE IV STA (00:20)
[2024-05-23 00:33] LABS: T4 Free Thyroxine 1.04 ng/dl (0.61-1.60)
--- NOTE | 2024-05-23 00:59 | CT Scan Report ---
Exam(s): CT ABDOMEN + PELVIS Without Contrast EXAM: CT Abdomen and Pelvis Without Intravenous Contrast CLINICAL HISTORY: Reason for exam: right abd pain, DKA, ALLY. TECHNIQUE: Axial computed tomography images of the abdomen and pelvis without intravenous contrast. CTDI is 26.44 mGy and DLP is 1356.31 mGy-cm. Automated exposure control was utilized for the study. A dose lowering technique was utilized adhering to the principles of ALARA. COMPARISON: No relevant prior studies available. FINDINGS: Lung bases: Unremarkable. ABDOMEN: Liver: Hepatomegaly and steatosis. Gallbladder and bile ducts: Cholecystectomy. No ductal dilation. Pancreas: Unremarkable. No ductal dilation. Spleen: Unremarkable. No splenomegaly. Adrenals: Unremarkable. No mass. Kidneys and ureters: Unremarkable. No obstructing stones. No hydronephrosis. Stomach and bowel: No bowel obstruction. Distal colonic diverticula. No mucosal thickening. PELVIS: Appendix: No evidence of appendicitis. Bladder: Unremarkable. No stones. Normal urinary bladder. Small focus of intraluminal gas suggesting recent instrumentation. Reproductive: Unremarkable uterus. Complex right adnexal mass measuring 8.6 x 7.6 x 6.1 cm, raising concern for ovarian neoplasm. ABDOMEN and PELVIS: Intraperitoneal space: Unremarkable. No free air, significant free fluid, or fluid collection. Bones/joints: Degenerative changes in the lumbar spine. No acute fracture. No dislocation. Soft tissues: Unremarkable. Vasculature: Atherosclerosis without aortic aneurysm. Lymph nodes: Unremarkable. No enlarged lymph nodes. IMPRESSION: Complex right adnexal mass measuring 8.6 x 7.6 x 6.1 cm, raising concern for ovarian neoplasm. Consider follow-up evaluation with pelvic ultrasound. SECURITY SHIFT MANAGER recommended for further management. No free fluid. No evidence of carcinomatosis. Electronically signed by: Edd Ma M.D. 05/23/24 00:59 AM
[2024-05-23 01:04] LABS: Appearance Urine Clear (Clear); Bacteria Urine Automated 4+ (None Seen); Bilirubin Urine Negative (Negative); Blood Urine Trace (Negative); Cast Urine Automated 0-2 /lpf (0-2); Color Urine Yellow; Epithelial Cell Urine Auto 0-2 /hpf (0-2); Glucose Urine UA 3+ (Negative); Ketones Urine Negative (Negative); Leukocyte Esterase Urine Trace (Negative); Nitrite Urine Positive (Negative); Protein Urine 2+ (Negative); RBC Urine Automated 0-2 /hpf (0-2); Specific Gravity Urine 1.014 (1.000-1.030); Urobilinogen Urine Negative (Negative); WBC Urine Automated 21-50 /hpf (0-5)
[2024-05-23] MEDS ORDERED: GLUCOSE 10 TAB/TUBE PO PRN ×2 (01:12)
[2024-05-23] MEDS ORDERED: ONDANSETRON INJ 2 MG/ML 2 ML VIAL IV PRN (01:12)
[2024-05-23] MEDS ORDERED: GLUCOSE 40% GEL 15 GM TUBE PO PRN ×2 (01:12)
[2024-05-23] MEDS: SODIUM CHLORIDE 0.9% 1,000 ML IV SCH (01:12)
[2024-05-23] MEDS ORDERED: DEXTROSE 50% 50 ML SYRINGE IV PRN ×2 (01:12)
[2024-05-23] MEDS ORDERED: CARBOHYDRATES FOR HYPOGLYCEMIA PO PRN ×2 (01:12)
[2024-05-23] MEDS ORDERED: GLUCAGON FOR INJ 1 MG VIAL SQ PRN ×2 (01:12)
[2024-05-23] MEDS ORDERED: cefTRIAXone SODIUM 2,000 MG/50 ML BAG IV STA (01:15)
[2024-05-23] MEDS: METOPROLOL SUCC 50MG EXT REL TAB PO STA (01:50)
[2024-05-23] MEDS: cefTRIAXone SODIUM 2,000 MG/50 ML BAG IV SCH (02:00)
[2024-05-23] MEDS: hydrALAZINE 10 MG TAB PO PRN (03:51)
[2024-05-23] MEDS: INSULIN HUMAN REGULAR PER UNIT 7 UNITS in SYRINGE 6.93 ML IV ONE (05:43)
[2024-05-23] MEDS: LEVOTHYROXINE SODIUM 125 MCG TABLET PO SCH (05:57)
[2024-05-23] MEDS: ACETAMINOPHEN 325 MG TAB PO PRN (05:57)
[2024-05-23] MEDS: INSULIN ASPART PER UNIT CHARGE SC ONE ×2 (05:58→12:13)
--- NOTE | 2024-05-23 06:50 | XRay Report ---
XR chest 1V portable CLINICAL HISTORY: weakness COMPARISON STUDY: Chest radiograph March 02, 2021. FINDINGS: Lung volumes are normal. Lungs are clear. There is no pneumothorax or pleural effusion. Car diac size is normal. Mediastinal contours are normal. There is no evidence for pulmonary edema. IMPRESSION: No acute cardiopulmonary findings. ACT 112: Negative or not required by law. Electronically signed by: Kenton Mann M.D. 05/23/2024 6:49 AM
[2024-05-23 07:08] LABS: Estimated Average Glucose 298 mg/dl
[2024-05-23] MEDS: GABAPENTIN 100 MG CAP PO SCH (07:46)
--- NOTE | 2024-05-23 08:01 | Electrocardiogram Report ---
Test Reason : Blood Pressure : */* mmHG Vent. Rate : 80 BPM Atrial Rate : 80 BPM P-R Int : 182 ms QRS Dur : 90 ms QT Int : 410 ms P-R-T Axes : 40 -42 68 degrees QTcB Int : 472 ms Normal sinus rhythm Left axis deviation Minimal voltage criteria for LVH, may be normal variant ( Alexis product ) Abnormal ECG When compared with ECG of 02-Mar-2021 11:10, No significant change was found Confirmed by Jim Wilkerson ([id number]) on 05/23/2024 8:01:39 AM Referred By: REFERRED SELF Confirmed By: Jim Wilkerson
[2024-05-23] MEDS: LANTUS PER UNIT CHARGE SQ SCH (08:02)
[2024-05-23] MEDS: INSULIN ASPART PER UNIT CHARGE SC SCH (09:05)
--- NOTE | 2024-05-23 10:32 | Ultrasound Report ---
US pelvic complete CLINICAL HISTORY: complex mass noted on CT concerning for ovarian ca TECHNIQUE: Real-time sonographic images of the pelvic contents were obtained with transabdominal and transvaginal technique. Comparison: Comparison is made to CT abdomen pelvis 05/23/2024 FINDINGS: The uterus measures 6.5 x 3.5 x 4.8 cm. The endometrial cavity echo stripe measures 0.3 cm in thickne ss. Nabothian cysts are seen. The right ovary measures 9.5 x 5.8 x 8.9 cm. The left ovary measures 2.4 x 1.2 x 2.2 cm. A right comp tab area measures 7.5 x 5.7 x 6.8 cm. There is also a cyst measuring 4.0 x 2.6 x 2 point There was no fluid in the cul-de-sac. IMPRESSION: Complex right ovarian cyst is seen corresponding to the ovarian lesion seen on prior CT. In a postmen opausal woman, 3-6 months follow-up for recharacterization is recommended. ACT 112: Negative or not required by law. Electronically signed by: Lars Rice M.D. 05/23/2024 10:30 AM
--- NOTE | 2024-05-23 10:45 | Hospitalist Progress Note ---
Date of Service May 23, 2024 Assessment & Plan (1) Acute hyperglycemia: Plan: History of type 2 diabetes, insulin-dependent. She has been off her basal insulin therapy for 2 days and as a result she has hyperglycemia. This is rapidly improving with 3 starting the Lantus therapy. Continue sliding scale coverage. ADA diet. (2) ALLY (acute kidney injury): Plan: Due to volume depletion on admission. Continue IV fluids. Monitor intake and output. Serial labs (3) Elevated troponin: Plan: Mild. No chest pain. No acute EKG changes. No evidence of acute coronary syndrome (4) Elevated creatine kinase: Plan: Mild. No evidence of rhabdomyolysis. No clinical significance (5) UTI (urinary tract infection): Plan: Urinalysis suggestive of infection. Currently on Rocephin. Awaiting final culture results. (6) Ovarian mass: Plan: Incidental finding of right ovarian mass seen on abdomen CT scan. CAPACITY MANAGER consultation pending. Pelvic ultrasound pending. This likely will need resection in the near future. Plan Hopeful discharge to home tomorrow, May 24 Admission and Anticipated Discharge Date Admission Date: May 23, 2024 Subjective Alert and oriented. No distress. Glucose has improved down to 293 with restarting her basal insulin therapy. CAPACITY MANAGER consultation is pending along with pelvic ultrasound for the incidental finding of the right adnexal mass. This is likely to need further outpatient follow-up and possibly surgical excision. Urine culture results pending. She remains on Rocephin. Hopefully she can go home tomorrow, May 24 Review of Systems 2 Review of Systems: Constitutionalno fever or chills ENTno blurred vision, no double vision, no epistaxis, no sore throat Respiratoryno cough, no wheezing, no shortness of breath Cardiacno palpitations, no chest pain, no syncope Shelly nausea, vomiting, diarrhea, melena, hematochezia GUno urinary retention, no urinary incontinence, no dysuria, no hematuria Musculoskeletalno joint pain, no muscle tenderness Skinno bruising, no rashes, no pruritus Neurono isolated weakness, no paresthesia, no weakness Psychno depression, no anxiety Physical Exam 2 Physical Exam: General-alert and oriented x3, no fever, no chills HEENT-head atraumatic and normocephalic, pupils equal and reactive to light, extraocular muscles intact Neck-no lymphadenopathy or thyromegaly, trachea midline Chest-clear to auscultation. No rales, wheezing or rhonchi Cardiac-regular rate and rhythm, normal S1 and S2 Abdomen-normal bowel sounds, no hepatosplenomegaly Extremities-no cyanosis, clubbing, or edema Neuro-cranial nerves II through XII intact, motor and sensory function within normal limits, strength symmetrical, no focal deficits Psych-normal affect, normal mood Results & Data Results & Data Vital Signs (Past 12 Hours) Vital Signs Temp Pulse Pulse Resp BP Pulse Ox O2 Del Method 05/23/24 10:36 36.5 C 72 18 154/76 H 95 Room Air 05/23/24 07:56 Room Air 05/23/24 07:33 36.4 C L 68 18 163/84 H 97 Room Air 05/23/24 07:24 75 05/23/24 05:07 36.4 C L 72 16 168/83 H 96 Room Air 05/23/24 03:36 203/101 H 05/23/24 01:16 Room Air 05/23/24 01:16 36.4 C L 78 18 226/116 H 98 Room Air 05/23/24 01:16 Room Air 05/23/24 01:16 36.4 C L 78 18 226/116 H 98 Room Air 05/22/24 23:51 74 18 99 Room Air 05/22/24 22:55 79 Laboratory Results 05/22/24 22:46 05/22/24 22:46 PG Care Time/CCT Total # of Minutes Spent Total Time Spent with Patient: Total time spent is greater than 50% in coordination of care (as documented) at patient's floor/unit and/or counseling patient: Coding Level of Care Code 61451 SUB INP/OBS CARE 3/50MIN Diagnoses Acute hyperglycemia R73.9 ALLY (acute kidney injury) N17.9 Elevated troponin R79.89 Elevated creatine kinase R74.8 UTI (urinary tract infection) N39.0 Ovarian mass N83.8
--- NOTE | 2024-05-23 17:08 | OB/GYN Consultation ---
Date of Consultation May 23, 2024 Assessment & Plan (1) Ovarian mass: (2) Mass of right ovary: Patient is a 68-year-old G0 postmenopausal female who was admitted for reported controlled diabetes on her blood pressure and incidentally found right ovarian cystic mass, Patient is asymptomatic, no history of ovarian cyst or mass never had pelvic ultrasound to compare, I ordered ovarian cancer markers which are pending, Discussed the findings and recommended to follow-up with dry cleaning attendant in our office for possible surgery when the results will be complete, I will send a message to our office to arrange appointment in 1 to 2 weeks, All questions were answered. (3) Postmenopausal: (4) Diabetes type 1, uncontrolled: (5) Hypertension: (6) ALLY (acute kidney injury): (7) Acute hyperglycemia: (8) Elevated troponin: History of Present Illness Attending Physician: Sanket Clifton MD History of Present Illness Patient is a 68-year-old G0 postmenopausal female who was admitted for poorly controlled diabetes and hypertension by medical team. She had right upper quadrant abdominal pain for which she had CT of abdomen last night which showed right ovarian mass: MPRESSION: Complex right adnexal mass measuring 8.6 x 7.6 x 6.1 cm, raising concern for ovarian neoplasm. Consider follow-up evaluation with pelvic ultrasound. RECEPTION INTERVIEWER recommended for further management. Pelvic ultrasound is done to confirm as followed: FINDINGS: The uterus measures 6.5 x 3.5 x 4.8 cm. The endometrial cavity echo stripe measures 0.3 cm in thickness. Nabothian cysts are seen. The right ovary measures 9.5 x 5.8 x 8.9 cm. The left ovary measures 2.4 x 1.2 x 2.2 cm. A right complex area measures 7.5 x 5.7 x 6.8 cm. There is also a cyst measuring 4.0 x 2.6 x 2 point There was no fluid in the cul-de-sac. patient has no complaints. She denies pelvic / lower abdominal pain, vaginal discomfort, vaginal bleeding. She has been menopausal since age 50, never used hormones she has not had much symptoms of menopause. She has not been sexually active for many years. She has seen her primary care and had Pap smear and mammogram last year which were normal. She has not had pelvic ultrasound. She had breast biopsies in the past which were benign. She reports her great aunt on maternal side had breast cancer in 1960s she does not know much about it. No no other family history of ovarian or breast cancer. 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 Allergies Allergy/AdvReac Type Severity Reaction Status Date / Time pseudoephedrine Allergy Intermediate swelling Verified 12/13/23 09:23 Home Medications Medication Instructions Recorded Confirmed Type multivitamin 1 tab PO DAILY 04/03/18 05/23/24 History lisinopril 40 mg tablet 40 mg PO DAILY 06/06/19 05/23/24 History gabapentin 100 mg capsule See Rx Instructions PO BID 05/19/20 05/23/24 History atorvastatin 80 mg tablet 80 mg PO HS 06/09/20 05/23/24 History metoprolol succinate 50 mg 50 mg PO HS 03/02/21 05/23/24 History tablet,extended release 24 hr (Toprol XL) insulin aspart U-100 100 unit/mL 15 unit subcut TID 05/31/22 05/23/24 History (3 mL) subcutaneous pen (Novolog FlexPen U-100 Insulin aspart) blood sugar diagnostic (Accu-Chek 04/25/23 05/23/24 History Guide test strips) calcium carbonate (Calcium 600) 600 mg PO DAILY 04/25/23 05/23/24 History blood-glucose meter,continuous #1 ea 05/09/23 05/23/24 Rx (Dexcom G7 Cutting Machine Offbearer) blood-glucose sensor (Dexcom G7 #3 ea 05/09/23 05/23/24 Rx Sensor device) cholecalciferol (vitamin D3) 25 50 mcg PO DAILY 06/14/23 05/23/24 History mcg (1,000 unit) tablet (Vitamin D3) cyanocobalamin (vitamin B-12) 2,000 mcg PO DAILY 06/14/23 05/23/24 History 1,000 mcg capsule Lantus Solostar U-100 Insulin 100 35 unit (0.35 mL) subcut QPM #45 mL 08/15/23 05/23/24 Rx unit/mL (3 mL) subcutaneous pen (insulin glargine) lancets (Accu-Chek Softclix #100 ea 09/05/23 05/23/24 History Lancets) semaglutide 0.25 mg or 0.5 mg (2 0.75 mg subcut WK 09/05/23 05/23/24 History mg/3 mL) subcutaneous pen injector (Ozempic) spironolactone 100 mg tablet 100 mg PO DAILY #90 tabs 12/13/23 05/23/24 Rx Euthyrox 125 mcg tablet 125 mcg PO DAILY #90 tabs 01/19/24 05/23/24 Rx (levothyroxine) Patient History Medical History Acute kidney injury Foot fracture Personal history of diabetic foot ulcer Goiter Graves disease Overweight Osteoarthritis Surgical History 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 History of colonoscopy History of cholecystectomy History of tooth extraction History of tonsillectomy History of cataract surgery RT/LEFT S/P cholecystectomy Family History Sister Diabetes Grandmother (Paternal) Diabetes Father Stroke COPD (chronic obstructive pulmonary disease) Brother Hemochromatosis Social History Smoking Status: Former smoker Tobacco Type: Cigarettes Cigarettes Per Day: 1-5; Second Hand Exposure: No; Do You Dip or Chew Tobacco: No; Tobacco Cessation Education Requested by Patient: No Hx Alcohol Use: Yes Alcohol type: beer and wine Hx Substance Use: No Preferred Language: Belgian Communication Ability: Effective Visual Impairment: No Limitations Hearing Ability: Normal Oil Truck Driver Required: No Beliefs That Will Affect Care: None Current Living Situation: Alone Current Living Situation Comment: home alone with cat, cares for elderly mother who lives nearby current occupational status: employed current occupation: [employer] How many Children do You have: 0 Other Information That Helps Us Care for You: No Feels Safe at Home: Yes Safety Concerns: Feels Safe At This Time Diet: regular caffeine: Yes (1-2 cups tea or coffee daily) during the past year weight has: increased > 10 lbs Physical Activity Frequency: Does not Exercise Gender Identity: Female Assistive Devices: Glasses and Walker Review of Systems Constitutional: as per Subjective / HPI Physical Exam Constitutional: WD/WN, vitals as above well developed, well nourished and comfortable Genitourinary: Deferred Results & Data Vital Signs (Past 12 Hours) Vital Signs Temp Pulse Pulse Resp BP Pulse Ox O2 Del Method 05/23/24 15:31 60 05/23/24 15:09 36.7 C 62 16 125/76 95 Room Air 05/23/24 10:36 36.5 C 72 18 154/76 H 95 Room Air 05/23/24 07:56 Room Air 05/23/24 07:33 36.4 C L 68 18 163/84 H 97 Room Air 05/23/24 07:24 75 05/23/24 05:07 36.4 C L 72 16 168/83 H 96 Room Air Laboratory Results 05/23/24 05/23/24 05/23/24 Range/Units 15:15 13:16 13:14 WBC (4.8-10.8) K/ul RBC (4.20-5.40) M/uL Hgb (12.0-16.0) g/dl Hct (37.0-47.0) % MCV (80.0-100.0) fL MCH (25.0-34.0) pg MCHC (32.0-36.0) g/dL RDW Std Deviation (36.4-46.3) fL RDW Coeff of Hattie (11.5-14.5) % Plt Count (130-400) K/uL MPV (9.4-12.4) fL Immature Gran % (Auto) % Neut % (Auto) % Lymph % (Auto) % Hughes % (Auto) % Eos % (Auto) % Baso % (Auto) % Neut # (Auto) (1.40-6.50) K/uL Lymph # (Auto) (1.20-3.40) K/uL Hughes # (Auto) (0.11-0.59) K/uL Eos # (Auto) (0.00-0.50) K/uL Baso # (Auto) (0.00-0.20) K/uL Immature Gran # (Auto) (0.01-0.20) K/uL VBG pH (7.36-7.41) VBG pCO2 (38-50) mmHg VBG pO2 mmHg VBG HCO3 mmol/L VBG O2 Saturation % VBG Base Excess mEq/L Sodium (136-145) mmol/L Potassium (3.5-5.1) mmol/L Chloride (98-107) mmol/L Carbon Dioxide (21-32) mmol/L Anion Gap (3-11) BUN (6-23) mg/dl Creatinine (0.6-1.2) mg/dl Est Cr Clr Drug Dosing ml/min eGFR BUN/Creatinine Ratio (10-20) Glucose (70-99(Fasting)) mg/dl POC Glucose 190 H 241 H 262 H (70-99) mg/dl Estimat Average Glucose mg/dl Hemoglobin A1c (4.5-5.6) % Lactate (0.4-2.0) mmol/L Calcium (8.6-10.3) mg/dl Magnesium (1.7-2.4) mg/dl Total Bilirubin (0.2-1.0) mg/dl AST (13-39) U/L ALT (7-52) U/L Alkaline Phosphatase (34-104) U/L Lactate Dehydrogenase (86-244) U/L Total Creatine Kinase (26-192) U/L Troponin I High Sens (0-14) pg/ml Total Protein (6.0-8.3) gm/dl Albumin (3.4-5.0) gm/dl Globulin (2.5-4.0) gm/dl Albumin/Globulin Ratio (0.9-2) Tumor Marker AFP Carcinoembryonic Ag (0-2.5) ng/ml CA 19-9 Antigen CA 125 Antigen TSH (0.300-4.500) uIu/ml Free T4 (0.61-1.60) ng/dl HCG, Quant mIU/ml Urine Color Urine Appearance (Clear) Urine pH (4.5-7.5) Ur Specific [place] (1.000-1.030) Urine Protein (Negative) Urine Glucose (UA) (Negative) Urine Ketones (Negative) Urine Blood (Negative) Urine Nitrite (Negative) Urine Bilirubin (Negative) Urine Urobilinogen (Negative) Ur Leukocyte Esterase (Negative) Urine WBC (Auto) (0-5) /hpf Urine RBC (Auto) (0-2) /hpf U Hyaline Cast (Auto) (0-2) /lpf U Epithel Cells (Auto) (0-2) /hpf Urine Bacteria (Auto) (None Seen) Adenovirus (PCR) (NotDetected) B. pertussis DNA (PCR) (NotDetected) B.parapertussis DNA PCR (NotDetected) C. pneumoniae DNA (PCR) (NotDetected) Coronavirus OC43 (PCR) (NotDetected) Coronavirus HKU1 (PCR) (NotDetected) Coronavirus 229E (PCR) (NotDetected) SARS-CoV-2 (PCR) (NotDetected) Coronavirus NL63 (PCR) (NotDetected) Human Metapneumovir PCR (NotDetected) Influenza Type A (PCR) (NotDetected) Influenza Type B (PCR) (NotDetected) M. pneumoniae (PCR) (NotDetected) Parainfluenza 1 (PCR) (NotDetected) Parainfluenza 2 (PCR) (NotDetected) Parainfluenza 3 (PCR) (NotDetected) Parainfluenza 4 (PCR) (NotDetected) RSV (PCR) (NotDetected) Entero/Rhino (PCR) (NotDetected) 05/23/24 05/23/24 05/23/24 Range/Units 12:12 10:08 10:08 WBC (4.8-10.8) K/ul RBC (4.20-5.40) M/uL Hgb (12.0-16.0) g/dl Hct (37.0-47.0) % MCV (80.0-100.0) fL MCH (25.0-34.0) pg MCHC (32.0-36.0) g/dL RDW Std Deviation (36.4-46.3) fL RDW Coeff of Hattie (11.5-14.5) % Plt Count (130-400) K/uL MPV (9.4-12.4) fL Immature Gran % (Auto) % Neut % (Auto) % Lymph % (Auto) % Hughes % (Auto) % Eos % (Auto) % Baso % (Auto) % Neut # (Auto) (1.40-6.50) K/uL Lymph # (Auto) (1.20-3.40) K/uL Hughes # (Auto) (0.11-0.59) K/uL Eos # (Auto) (0.00-0.50) K/uL Baso # (Auto) (0.00-0.20) K/uL Immature Gran # (Auto) (0.01-0.20) K/uL VBG pH (7.36-7.41) VBG pCO2 (38-50) mmHg VBG pO2 mmHg VBG HCO3 mmol/L VBG O2 Saturation % VBG Base Excess mEq/L Sodium (136-145) mmol/L Potassium (3.5-5.1) mmol/L Chloride (98-107) mmol/L Carbon Dioxide (21-32) mmol/L Anion Gap (3-11) BUN (6-23) mg/dl Creatinine (0.6-1.2) mg/dl Est Cr Clr Drug Dosing ml/min eGFR BUN/Creatinine Ratio (10-20) Glucose (70-99(Fasting)) mg/dl POC Glucose 300 H 325 H* 324 H* (70-99) mg/dl Estimat Average Glucose mg/dl Hemoglobin A1c (4.5-5.6) % Lactate (0.4-2.0) mmol/L Calcium (8.6-10.3) mg/dl Magnesium (1.7-2.4) mg/dl Total Bilirubin (0.2-1.0) mg/dl AST (13-39) U/L ALT (7-52) U/L Alkaline Phosphatase (34-104) U/L Lactate Dehydrogenase (86-244) U/L Total Creatine Kinase (26-192) U/L Troponin I High Sens (0-14) pg/ml Total Protein (6.0-8.3) gm/dl Albumin (3.4-5.0) gm/dl Globulin (2.5-4.0) gm/dl Albumin/Globulin Ratio (0.9-2) Tumor Marker AFP Carcinoembryonic Ag (0-2.5) ng/ml CA 19-9 Antigen CA 125 Antigen TSH (0.300-4.500) uIu/ml Free T4 (0.61-1.60) ng/dl HCG, Quant mIU/ml Urine Color Urine Appearance (Clear) Urine pH (4.5-7.5) Ur Specific [place] (1.000-1.030) Urine Protein (Negative) Urine Glucose (UA) (Negative) Urine Ketones (Negative) Urine Blood (Negative) Urine Nitrite (Negative) Urine Bilirubin (Negative) Urine Urobilinogen (Negative) Ur Leukocyte Esterase (Negative) Urine WBC (Auto) (0-5) /hpf Urine RBC (Auto) (0-2) /hpf U Hyaline Cast (Auto) (0-2) /lpf U Epithel Cells (Auto) (0-2) /hpf Urine Bacteria (Auto) (None Seen) Adenovirus (PCR) (NotDetected) B. pertussis DNA (PCR) (NotDetected) B.parapertussis DNA PCR (NotDetected) C. pneumoniae DNA (PCR) (NotDetected) Coronavirus OC43 (PCR) (NotDetected) Coronavirus HKU1 (PCR) (NotDetected) Coronavirus 229E (PCR) (NotDetected) SARS-CoV-2 (PCR) (NotDetected) Coronavirus NL63 (PCR) (NotDetected) Human Metapneumovir PCR (NotDetected) Influenza Type A (PCR) (NotDetected) Influenza Type B (PCR) (NotDetected) M. pneumoniae (PCR) (NotDetected) Parainfluenza 1 (PCR) (NotDetected) Parainfluenza 2 (PCR) (NotDetected) Parainfluenza 3 (PCR) (NotDetected) Parainfluenza 4 (PCR) (NotDetected) RSV (PCR) (NotDetected) Entero/Rhino (PCR) (NotDetected) 05/23/24 05/23/24 05/23/24 Range/Units 08:30 07:37 07:36 WBC (4.8-10.8) K/ul RBC (4.20-5.40) M/uL Hgb (12.0-16.0) g/dl Hct (37.0-47.0) % MCV (80.0-100.0) fL MCH (25.0-34.0) pg MCHC (32.0-36.0) g/dL RDW Std Deviation (36.4-46.3) fL RDW Coeff of Hattie (11.5-14.5) % Plt Count (130-400) K/uL MPV (9.4-12.4) fL Immature Gran % (Auto) % Neut % (Auto) % Lymph % (Auto) % Hughes % (Auto) % Eos % (Auto) % Baso % (Auto) % Neut # (Auto) (1.40-6.50) K/uL Lymph # (Auto) (1.20-3.40) K/uL Hughes # (Auto) (0.11-0.59) K/uL Eos # (Auto) (0.00-0.50) K/uL Baso # (Auto) (0.00-0.20) K/uL Immature Gran # (Auto) (0.01-0.20) K/uL VBG pH (7.36-7.41) VBG pCO2 (38-50) mmHg VBG pO2 mmHg VBG HCO3 mmol/L VBG O2 Saturation % VBG Base Excess mEq/L Sodium (136-145) mmol/L Potassium (3.5-5.1) mmol/L Chloride (98-107) mmol/L Carbon Dioxide (21-32) mmol/L Anion Gap (3-11) BUN (6-23) mg/dl Creatinine (0.6-1.2) mg/dl Est Cr Clr Drug Dosing ml/min eGFR BUN/Creatinine Ratio (10-20) Glucose (70-99(Fasting)) mg/dl POC Glucose 332 H* 347 H* (70-99) mg/dl Estimat Average Glucose mg/dl Hemoglobin A1c (4.5-5.6) % Lactate (0.4-2.0) mmol/L Calcium (8.6-10.3) mg/dl Magnesium (1.7-2.4) mg/dl Total Bilirubin (0.2-1.0) mg/dl AST (13-39) U/L ALT (7-52) U/L Alkaline Phosphatase (34-104) U/L Lactate Dehydrogenase 254 H (86-244) U/L Total Creatine Kinase (26-192) U/L Troponin I High Sens (0-14) pg/ml Total Protein (6.0-8.3) gm/dl Albumin (3.4-5.0) gm/dl Globulin (2.5-4.0) gm/dl Albumin/Globulin Ratio (0.9-2) Tumor Marker AFP Pending Carcinoembryonic Ag 2.0 (0-2.5) ng/ml CA 19-9 Antigen Pending CA 125 Antigen Pending TSH (0.300-4.500) uIu/ml Free T4 (0.61-1.60) ng/dl HCG, Quant 1 mIU/ml Urine Color Urine Appearance (Clear) Urine pH (4.5-7.5) Ur Specific [place] (1.000-1.030) Urine Protein (Negative) Urine Glucose (UA) (Negative) Urine Ketones (Negative) Urine Blood (Negative) Urine Nitrite (Negative) Urine Bilirubin (Negative) Urine Urobilinogen (Negative) Ur Leukocyte Esterase (Negative) Urine WBC (Auto) (0-5) /hpf Urine RBC (Auto) (0-2) /hpf U Hyaline Cast (Auto) (0-2) /lpf U Epithel Cells (Auto) (0-2) /hpf Urine Bacteria (Auto) (None Seen) Adenovirus (PCR) (NotDetected) B. pertussis DNA (PCR) (NotDetected) B.parapertussis DNA PCR (NotDetected) C. pneumoniae DNA (PCR) (NotDetected) Coronavirus OC43 (PCR) (NotDetected) Coronavirus HKU1 (PCR) (NotDetected) Coronavirus 229E (PCR) (NotDetected) SARS-CoV-2 (PCR) (NotDetected) Coronavirus NL63 (PCR) (NotDetected) Human Metapneumovir PCR (NotDetected) Influenza Type A (PCR) (NotDetected) Influenza Type B (PCR) (NotDetected) M. pneumoniae (PCR) (NotDetected) Parainfluenza 1 (PCR) (NotDetected) Parainfluenza 2 (PCR) (NotDetected) Parainfluenza 3 (PCR) (NotDetected) Parainfluenza 4 (PCR) (NotDetected) RSV (PCR) (NotDetected) Entero/Rhino (PCR) (NotDetected) 05/23/24 05/23/24 05/23/24 Range/Units 07:35 05:23 02:55 WBC (4.8-10.8) K/ul RBC (4.20-5.40) M/uL Hgb (12.0-16.0) g/dl Hct (37.0-47.0) % MCV (80.0-100.0) fL MCH (25.0-34.0) pg MCHC (32.0-36.0) g/dL RDW Std Deviation (36.4-46.3) fL RDW Coeff of Hattie (11.5-14.5) % Plt Count (130-400) K/uL MPV (9.4-12.4) fL Immature Gran % (Auto) % Neut % (Auto) % Lymph % (Auto) % Hughes % (Auto) % Eos % (Auto) % Baso % (Auto) % Neut # (Auto) (1.40-6.50) K/uL Lymph # (Auto) (1.20-3.40) K/uL Hughes # (Auto) (0.11-0.59) K/uL Eos # (Auto) (0.00-0.50) K/uL Baso # (Auto) (0.00-0.20) K/uL Immature Gran # (Auto) (0.01-0.20) K/uL VBG pH (7.36-7.41) VBG pCO2 (38-50) mmHg VBG pO2 mmHg VBG HCO3 mmol/L VBG O2 Saturation % VBG Base Excess mEq/L Sodium (136-145) mmol/L Potassium (3.5-5.1) mmol/L Chloride (98-107) mmol/L Carbon Dioxide (21-32) mmol/L Anion Gap (3-11) BUN (6-23) mg/dl Creatinine (0.6-1.2) mg/dl Est Cr Clr Drug Dosing ml/min eGFR BUN/Creatinine Ratio (10-20) Glucose (70-99(Fasting)) mg/dl POC Glucose 324 H* 293 H 339 H* (70-99) mg/dl Estimat Average Glucose mg/dl Hemoglobin A1c (4.5-5.6) % Lactate (0.4-2.0) mmol/L Calcium (8.6-10.3) mg/dl Magnesium (1.7-2.4) mg/dl Total Bilirubin (0.2-1.0) mg/dl AST (13-39) U/L ALT (7-52) U/L Alkaline Phosphatase (34-104) U/L Lactate Dehydrogenase (86-244) U/L Total Creatine Kinase (26-192) U/L Troponin I High Sens (0-14) pg/ml Total Protein (6.0-8.3) gm/dl Albumin (3.4-5.0) gm/dl Globulin (2.5-4.0) gm/dl Albumin/Globulin Ratio (0.9-2) Tumor Marker AFP Carcinoembryonic Ag (0-2.5) ng/ml CA 19-9 Antigen CA 125 Antigen TSH (0.300-4.500) uIu/ml Free T4 (0.61-1.60) ng/dl HCG, Quant mIU/ml Urine Color Urine Appearance (Clear) Urine pH (4.5-7.5) Ur Specific [place] (1.000-1.030) Urine Protein (Negative) Urine Glucose (UA) (Negative) Urine Ketones (Negative) Urine Blood (Negative) Urine Nitrite (Negative) Urine Bilirubin (Negative) Urine Urobilinogen (Negative) Ur Leukocyte Esterase (Negative) Urine WBC (Auto) (0-5) /hpf Urine RBC (Auto) (0-2) /hpf U Hyaline Cast (Auto) (0-2) /lpf U Epithel Cells (Auto) (0-2) /hpf Urine Bacteria (Auto) (None Seen) Adenovirus (PCR) (NotDetected) B. pertussis DNA (PCR) (NotDetected) B.parapertussis DNA PCR (NotDetected) C. pneumoniae DNA (PCR) (NotDetected) Coronavirus OC43 (PCR) (NotDetected) Coronavirus HKU1 (PCR) (NotDetected) Coronavirus 229E (PCR) (NotDetected) SARS-CoV-2 (PCR) (NotDetected) Coronavirus NL63 (PCR) (NotDetected) Human Metapneumovir PCR (NotDetected) Influenza Type A (PCR) (NotDetected) Influenza Type B (PCR) (NotDetected) M. pneumoniae (PCR) (NotDetected) Parainfluenza 1 (PCR) (NotDetected) Parainfluenza 2 (PCR) (NotDetected) Parainfluenza 3 (PCR) (NotDetected) Parainfluenza 4 (PCR) (NotDetected) RSV (PCR) (NotDetected) Entero/Rhino (PCR) (NotDetected) 05/23/24 05/23/24 05/22/24 Range/Units 01:33 00:44 23:42 WBC (4.8-10.8) K/ul RBC (4.20-5.40) M/uL Hgb (12.0-16.0) g/dl Hct (37.0-47.0) % MCV (80.0-100.0) fL MCH (25.0-34.0) pg MCHC (32.0-36.0) g/dL RDW Std Deviation (36.4-46.3) fL RDW Coeff of Hattie (11.5-14.5) % Plt Count (130-400) K/uL MPV (9.4-12.4) fL Immature Gran % (Auto) % Neut % (Auto) % Lymph % (Auto) % Hughes % (Auto) % Eos % (Auto) % Baso % (Auto) % Neut # (Auto) (1.40-6.50) K/uL Lymph # (Auto) (1.20-3.40) K/uL Hughes # (Auto) (0.11-0.59) K/uL Eos # (Auto) (0.00-0.50) K/uL Baso # (Auto) (0.00-0.20) K/uL Immature Gran # (Auto) (0.01-0.20) K/uL VBG pH (7.36-7.41) VBG pCO2 (38-50) mmHg VBG pO2 mmHg VBG HCO3 mmol/L VBG O2 Saturation % VBG Base Excess mEq/L Sodium (136-145) mmol/L Potassium (3.5-5.1) mmol/L Chloride (98-107) mmol/L Carbon Dioxide (21-32) mmol/L Anion Gap (3-11) BUN (6-23) mg/dl Creatinine (0.6-1.2) mg/dl Est Cr Clr Drug Dosing ml/min eGFR BUN/Creatinine Ratio (10-20) Glucose (70-99(Fasting)) mg/dl POC Glucose (70-99) mg/dl Estimat Average Glucose 298 mg/dl Hemoglobin A1c 12.0 H (4.5-5.6) % Lactate 2.2 H* (0.4-2.0) mmol/L Calcium (8.6-10.3) mg/dl Magnesium (1.7-2.4) mg/dl Total Bilirubin (0.2-1.0) mg/dl AST (13-39) U/L ALT (7-52) U/L Alkaline Phosphatase (34-104) U/L Lactate Dehydrogenase (86-244) U/L Total Creatine Kinase 327 H (26-192) U/L Troponin I High Sens 18.6 H D (0-14) pg/ml Total Protein (6.0-8.3) gm/dl Albumin (3.4-5.0) gm/dl Globulin (2.5-4.0) gm/dl Albumin/Globulin Ratio (0.9-2) Tumor Marker AFP Carcinoembryonic Ag (0-2.5) ng/ml CA 19-9 Antigen CA 125 Antigen TSH (0.300-4.500) uIu/ml Free T4 (0.61-1.60) ng/dl HCG, Quant mIU/ml Urine Color Yellow Urine Appearance Clear (Clear) Urine pH 6.0 (4.5-7.5) Ur Specific [place] 1.014 (1.000-1.030) Urine Protein 2+ H (Negative) Urine Glucose (UA) 3+ H (Negative) Urine Ketones Negative (Negative) Urine Blood Trace H (Negative) Urine Nitrite Positive A (Negative) Urine Bilirubin Negative (Negative) Urine Urobilinogen Negative (Negative) Ur Leukocyte Esterase Trace H (Negative) Urine WBC (Auto) 21-50 H (0-5) /hpf Urine RBC (Auto) 0-2 (0-2) /hpf U Hyaline Cast (Auto) 0-2 (0-2) /lpf U Epithel Cells (Auto) 0-2 (0-2) /hpf Urine Bacteria (Auto) 4+ H (None Seen) Adenovirus (PCR) (NotDetected) B. pertussis DNA (PCR) (NotDetected) B.parapertussis DNA PCR (NotDetected) C. pneumoniae DNA (PCR) (NotDetected) Coronavirus OC43 (PCR) (NotDetected) Coronavirus HKU1 (PCR) (NotDetected) Coronavirus 229E (PCR) (NotDetected) SARS-CoV-2 (PCR) (NotDetected) Coronavirus NL63 (PCR) (NotDetected) Human Metapneumovir PCR (NotDetected) Influenza Type A (PCR) (NotDetected) Influenza Type B (PCR) (NotDetected) M. pneumoniae (PCR) (NotDetected) Parainfluenza 1 (PCR) (NotDetected) Parainfluenza 2 (PCR) (NotDetected) Parainfluenza 3 (PCR) (NotDetected) Parainfluenza 4 (PCR) (NotDetected) RSV (PCR) (NotDetected) Entero/Rhino (PCR) (NotDetected) 05/22/24 05/22/24 05/22/24 Range/Units 23:40 22:46 22:33 WBC 7.54 (4.8-10.8) K/ul RBC 4.41 (4.20-5.40) M/uL Hgb 14.1 (12.0-16.0) g/dl Hct 40.9 (37.0-47.0) % MCV 92.7 (80.0-100.0) fL MCH 32.0 (25.0-34.0) pg MCHC 34.5 (32.0-36.0) g/dL RDW Std Deviation 42.4 (36.4-46.3) fL RDW Coeff of Hattie 12.4 (11.5-14.5) % Plt Count 172 (130-400) K/uL MPV 12.9 H (9.4-12.4) fL Immature Gran % (Auto) 0.3 % Neut % (Auto) 53.3 % Lymph % (Auto) 30.6 % Hughes % (Auto) 10.5 % Eos % (Auto) 3.7 % Baso % (Auto) 1.6 % Neut # (Auto) 4.02 (1.40-6.50) K/uL Lymph # (Auto) 2.31 (1.20-3.40) K/uL Hughes # (Auto) 0.79 H (0.11-0.59) K/uL Eos # (Auto) 0.28 (0.00-0.50) K/uL Baso # (Auto) 0.12 (0.00-0.20) K/uL Immature Gran # (Auto) 0.02 (0.01-0.20) K/uL VBG pH 7.38 (7.36-7.41) VBG pCO2 44 (38-50) mmHg VBG pO2 42 mmHg VBG HCO3 26 mmol/L VBG O2 Saturation 71.6 % VBG Base Excess 0.5 mEq/L Sodium 132 L (136-145) mmol/L Potassium 3.9 (3.5-5.1) mmol/L Chloride 94 L (98-107) mmol/L Carbon Dioxide 26 (21-32) mmol/L Anion Gap 12 H (3-11) BUN 45 H (6-23) mg/dl Creatinine 2.30 H (0.6-1.2) mg/dl Est Cr Clr Drug Dosing 26.9 ml/min eGFR 22.59 BUN/Creatinine Ratio 19.6 (10-20) Glucose 513 H* (70-99(Fasting)) mg/dl POC Glucose 507 H* (70-99) mg/dl Estimat Average Glucose mg/dl Hemoglobin A1c (4.5-5.6) % Lactate 2.1 H* (0.4-2.0) mmol/L Calcium 9.5 (8.6-10.3) mg/dl Magnesium 2.2 (1.7-2.4) mg/dl Total Bilirubin 0.6 (0.2-1.0) mg/dl AST 21 (13-39) U/L ALT 26 (7-52) U/L Alkaline Phosphatase 55 (34-104) U/L Lactate Dehydrogenase (86-244) U/L Total Creatine Kinase 393 H (26-192) U/L Troponin I High Sens 22.9 H (0-14) pg/ml Total Protein 7.7 (6.0-8.3) gm/dl Albumin 4.5 (3.4-5.0) gm/dl Globulin 3.2 (2.5-4.0) gm/dl Albumin/Globulin Ratio 1.4 (0.9-2) Tumor Marker AFP Carcinoembryonic Ag (0-2.5) ng/ml CA 19-9 Antigen CA 125 Antigen TSH 7.718 H (0.300-4.500) uIu/ml Free T4 1.04 (0.61-1.60) ng/dl HCG, Quant mIU/ml Urine Color Urine Appearance (Clear) Urine pH (4.5-7.5) Ur Specific [place] (1.000-1.030) Urine Protein (Negative) Urine Glucose (UA) (Negative) Urine Ketones (Negative) Urine Blood (Negative) Urine Nitrite (Negative) Urine Bilirubin (Negative) Urine Urobilinogen (Negative) Ur Leukocyte Esterase (Negative) Urine WBC (Auto) (0-5) /hpf Urine RBC (Auto) (0-2) /hpf U Hyaline Cast (Auto) (0-2) /lpf U Epithel Cells (Auto) (0-2) /hpf Urine Bacteria (Auto) (None Seen) Adenovirus (PCR) Not Detected (NotDetected) B. pertussis DNA (PCR) Not Detected (NotDetected) B.parapertussis DNA PCR Not Detected (NotDetected) C. pneumoniae DNA (PCR) Not Detected (NotDetected) Coronavirus OC43 (PCR) Not Detected (NotDetected) Coronavirus HKU1 (PCR) Not Detected (NotDetected) Coronavirus 229E (PCR) Not Detected (NotDetected) SARS-CoV-2 (PCR) Not Detected (NotDetected) Coronavirus NL63 (PCR) Not Detected (NotDetected) Human Metapneumovir PCR Not Detected (NotDetected) Influenza Type A (PCR) Not Detected (NotDetected) Influenza Type B (PCR) Not Detected (NotDetected) M. pneumoniae (PCR) Not Detected (NotDetected) Parainfluenza 1 (PCR) Not Detected (NotDetected) Parainfluenza 2 (PCR) Not Detected (NotDetected) Parainfluenza 3 (PCR) Not Detected (NotDetected) Parainfluenza 4 (PCR) Not Detected (NotDetected) RSV (PCR) Not Detected (NotDetected) Entero/Rhino (PCR) Not Detected (NotDetected)
[2024-05-23] MEDS: METOPROLOL SUCC 50MG EXT REL TAB PO SCH (20:36)
[2024-05-23] MEDS: GABAPENTIN 600 MG TAB PO SCH (20:36)
[2024-05-24 07:52] VITALS: BP 179/93; PULSE 60; RESP 18; TEMP 97.7; O2SAT 95
[2024-05-24 08:06] LABS: Hematocrit (blood only) 37.2 % (37.0-47.0); Hemoglobin 13.1 g/dl (12.0-16.0); Mean Corpuscular Hemoglobin 32.6 pg (25.0-34.0); Mean Corpuscular Hgb Conc 35.2 g/dL (32.0-36.0); Mean Corpuscular Volume 92.5 fL (80.0-100.0); Platelet Count 158 K/uL (130-400); RDW Coefficient of Variation 12.4 % (11.5-14.5); RDW Standard Deviation 42.5 fL (36.4-46.3); Red Blood Count 4.02 M/uL (4.20-5.40); White Blood Count 7.03 K/ul (4.8-10.8)
[2024-05-24 08:11] LABS: BUN Creatinine Ratio 18.2 (10-20); Calcium 8.7 mg/dl (8.6-10.3); Creatinine Clr Calc Pharmacy 32.1 ml/min; Potassium 4.1 mmol/L (3.5-5.1)
--- NOTE | 2024-05-24 09:53 | Discharge Summary ---
Discharge Summary Date of Service May 24, 2024 Principal Dx & Hospital Course #1 = Principal Diagnosis (1) Acute hyperglycemia: History of type 2 diabetes, insulin-dependent. She has been off her basal insulin therapy for 2 days and as a result she has hyperglycemia. This has rapidly improved with restarting the Lantus therapy. Continue sliding scale coverage while hospitalized. ADA diet. (2) ALLY (acute kidney injury): Due to volume depletion on admission. Improved with IV fluids. Monitor intake and output. Serial labs (3) Elevated troponin: Mild. No chest pain. No acute EKG changes. No evidence of acute coronary syndrome (4) Elevated creatine kinase: Mild. No evidence of rhabdomyolysis. No clinical significance (5) UTI (urinary tract infection): Gram-negative bacilli isolated. Continue oral Keflex at discharge. PCP will review final pathogen identification and sensitivities and adjust antibiotic therapy if necessary (6) Ovarian mass: Incidental finding of right ovarian mass seen on abdomen CT scan. TAX MAP TECHNICIAN consultation appreciated. They will follow-up with her in the office in 1 to 2 weeks. This likely will need resection in the near future. Plan Home today, May 24 Admission HPI Per Admitting Provider Jina Pinon is a 68yo female with history of DM-Type I with peripheral neuropathy, HTN presenting with hyperglycemia. Patient report having a headache and some neck pain three days ago as well as some nausea. She had routine blood work obtained at the [facility] and was contacted today due to hyperglycemia and told to come to the hospital for management. Patient reports feeling ill all day with headache and nausea. She drinks a lot of fluid and urinates a lot at baseline and did not notice a difference in this. She has been taking her Novolog but not as prescribed. She typically does not take it while at work She ran out of her Lantus a couple of days ago so has not had any long acting insulin on board. No report of fever, chills, chest pain, cough, SOB. She has persistent RUQ abdominal pain for the last 6 months - thought to be due to fatty liver No additional complaints at this time In the ER patient found to be hyperglycemic with [id number] ER Course: NSS x 2L Discharge Exam General-alert and oriented x3, no fever, no chills HEENT-head atraumatic and normocephalic, pupils equal and reactive to light, extraocular muscles intact Neck-no lymphadenopathy or thyromegaly, trachea midline Chest-clear to auscultation. No rales, wheezing or rhonchi Cardiac-regular rate and rhythm, normal S1 and S2 Abdomen-normal bowel sounds, no hepatosplenomegaly Extremities-no cyanosis, clubbing, or edema Neuro-cranial nerves II through XII intact, motor and sensory function within normal limits, strength symmetrical, no focal deficits Psych-normal affect, normal mood Discharge Plan Discharge Items Patient Disposition: Home - Self-Care Reason For Visit: HYPERGLYCEMIA Discharge Diagnosis: Uncontrolled type 2 diabetes, acute kidney injury, urinary tract infection, right adnexal complex cyst Condition on Discharge: Good Activity: Resume your previous activity Non-emergency contact: Primary Care Provider Call non-emergency contact if: your symptoms worsen Follow-up/Referrals: Taylor Alfaro PA-C [Primary Care Provider] - Diet: Carb Consistent or DM2 and Heart Healthy Addtl Attending Provider Instructions: Lantus Solostar prescription sent to [facility]. Take cephalexin antibiotic for 3 more days. Follow-up with gynecology in the office in 1 to 2 weeks for further evaluation of right ovarian cyst. Pending Studies at Discharge: Yes Studies:: Final identification of gram-negative bacilli in the urine Stand-Alone Forms: My [facility] [employer], Smoking Cessation Medications and DC Order Prescriptions: New cephalexin 250 mg capsule 250 mg PO TID Qty: 10 0RF gabapentin 600 mg Tablet 600 mg PO HS Qty: 0 0RF Continued multivitamin tablet 1 tab PO DAILY insulin aspart U-100 [Novolog FlexPen U-100 Insulin] 100 unit/mL (3 mL) insulin pen 15 unit subcut TID insulin glargine [Lantus Solostar U-100 Insulin] 100 unit/mL (3 mL) insulin pen 35 unit subcut QPM Qty: 45 3RF Rx Instructions: Reports taking 40 units PM daily. levothyroxine [Euthyrox] 125 mcg tablet 125 mcg PO DAILY Qty: 90 1RF atorvastatin 80 mg tablet 80 mg PO HS (DME) Accu-Chek Guide test strips Strip See Rx Instructions .Route Rx Instructions: As directed calcium carbonate [Calcium 600] 600 mg calcium (1,500 mg) tablet 600 mg PO DAILY (DME) Dexcom G7 Scuba Diving Teacher Misc See Rx Instructions .Route Qty: 1 0RF Rx Instructions: As directed (DME) Dexcom G7 Sensor Device See Rx Instructions .Route Qty: 3 11RF Rx Instructions: Change every 10 days (DME) lancets [Accu-Chek Softclix Lancets] Misc See Rx Instructions .ROUTE .MEDSUPPLY Qty: 100 Rx Instructions: As directed Ozempic 0.25 mg or 0.5 mg (2 mg/3 mL) pen injector 0.75 mg subcut WK Rx Instructions: Tuesdays lisinopril 40 mg tablet 40 mg PO DAILY spironolactone 100 mg tablet 100 mg PO DAILY Qty: 90 3RF cyanocobalamin (vitamin B-12) 1,000 mcg capsule 2,000 mcg PO DAILY metoprolol succinate [Toprol XL] 50 mg tablet extended release 24 hr 50 mg PO HS cholecalciferol (vitamin D3) [Vitamin D3] 25 mcg (1,000 unit) tablet 50 mcg PO DAILY Discontinued gabapentin 100 mg capsule See Rx Instructions PO BID Rx Instructions: 2 tab in Am and 6 tabs at HS po Discharge Orders: Discharge Order (Routine); Ordered 05/24/24 Ordered By: Sanket Clifton Admission Data Admit Date/Time: 05/23/24 00:14 Attending Provider: Sanket Clifton Admit Provider: Lianna Washburn Primary Care Provider: Taylor Alfaro Other Providers: Lianna Washburn; Mehul Manley; Leanne Eckert; Aleyda Htach; Tony Gillis; Ciara Knight; Rogerio Morales; Bernardino Villa; Elizabeth Jordan; Nubia Rebolledo; Kassandra Caba; Lucinda Brady; Ale Koenig; Karen Angela; Michelle Delaney; Claudio Uribe; Sunshine Duarte Hospital Stay Data Consultations 05/23/24 00:08 ED Decision to Admit Stat 05/23/24 01:11 Consult Gynecology Routine Diagnostic Imagining Performed 05/23/24 00:03 CT abd pelvis wo con Stat 05/23/24 01:11 US transvaginal Routine 05/23/24 01:12 US pelvic complete Routine Pending Results Patient Have Any Pending Studies at Discharge: Yes Discharge Instructions Given to Patient (Per Discharging Provider) Lantus Solostar prescription sent to [facility]. Take cephalexin antibiotic for 3 more days. Follow-up with gynecology in the office in 1 to 2 weeks for further evaluation of right ovarian cyst. Total Time Total Time Spent Total Time Spent (In Minutes): 45 minutes Coding Level of Care Code 10301 INP/OBS DISCH >30 MIN Diagnoses Acute hyperglycemia R73.9 ALLY (acute kidney injury) N17.9 Elevated troponin R79.89 Elevated creatine kinase R74.8 UTI (urinary tract infection) N39.0 Ovarian mass N83.8
[2024-05-24 13:22] LABS: AFP Tumor Marker Serum 2.1 ng/mL
== END 2024-05-24 11:52 | disposition home or self-care (01) | DRG 638 ==
LOC: ED 22:28 → SUATTDRO 05-23 00:14 → 3W 05-23 00:14 → INTOOBSV 05-23 00:14 → 3W 05-23 00:59 → 2N 05-23 05:06

== ENCOUNTER 2024-07-13 16:15 | Observation (INO) ==
--- NOTE | 2024-07-13 17:39 | XRay Report ---
EXAM: Radiographs of the Left Ankle 2 Views INDICATION: Dislocation. Trauma. TECHNIQUE: Frontal and lateral views of the left ankle. Images obtained at 5:17 PM COMPARISON: No relevant prior studies available. FINDINGS: Limitations: None. Bones/joints: There is acute trimalleolar fracture with lateral tibiotalar dislocation. The talar shaft appears rotated. The medial and lateral malleolar are normally located with respect to the talus. There is mild spurring of the dorsal midfoot. There is a small plantar calcaneal spur. Soft tissues: Periarticular soft tissue swelling noted. I cannot exclude open nature of the fracture as there may be some gas associated with the distal tibia. IMPRESSION: Acute left trimalleolar fracture with complete lateral tibiotalar dislocation. ACT 112: Negative or not required by law. Electronically signed by Estrellita Gallardo 07-13-2024 5:38 PM
[2024-07-13] MEDS: fentaNYL citrate PF 100 MCG/2 ML VIAL IV STA ×2 (17:47→18:28)
[2024-07-13] MEDS: MIDAZOLAM HCL 5 MG/ML 2ML VIAL IV STA (18:36)
--- NOTE | 2024-07-13 18:47 | Emergency Department Note ---
Pre Sedation Assessment Vital Signs Pulse Pulse Resp BP BP Pulse Ox O2 Del Method 07/13/24 18:26 70 18 97 Nasal Cannula 07/13/24 18:21 69 18 150/90 H 98 Nasal Cannula 07/13/24 18:21 64 18 163/91 H 98 Nasal Cannula 07/13/24 18:17 70 18 150/115 H 97 Nasal Cannula 07/13/24 17:32 Room Air 07/13/24 17:32 98 Room Air 07/13/24 17:30 72 18 134/78 98 Room Air 07/13/24 16:36 72 20 134/75 96 Room Air 07/13/24 16:34 70 O2 Flow Rate 07/13/24 18:26 2 07/13/24 18:21 2 07/13/24 18:21 2 07/13/24 18:17 2 07/13/24 17:32 07/13/24 17:32 07/13/24 17:30 07/13/24 16:36 07/13/24 16:34 Cardiovascular RRR, no murmur, no edema Respiratory normal respiratory effort, lungs clear to auscultation Pre-Sedation Airway Assessment Smoking Status: Former smoker Hx Sleep Apnea: No Short, Thick Neck: No Thyromental Distance: > or= 3.5 Finger Breadths Oral Cavity: + Chipped Teeth Mallampati Class: II ASA: ASA2 NPO Status Date of Last Intake of Fluids: 07/13/24 Time of Last Intake of Fluids: 14:30 Date of Last Intake of Solid Food: 07/13/24 Time of Last Intake of Solid Foods: 14:30 Procedure Planning Contraindications for Sedation: none Current Medications Reviewed: Yes Notes The planned sedation has been discussed with the patient. Informed Consent was obtained. I have identified the patient, determined the appropriateness of sedation and have assessed the patient immediately prior to the procedure. All medicine(s) and interventions are by my order.
--- NOTE | 2024-07-13 18:59 | XRay Report ---
EXAM: Radiographs of the Left Ankle 2 Views INDICATION: Post reduction. TECHNIQUE: Frontal and lateral views of the left ankle. Images obtained at 8:34 PM. COMPARISON: Prereduction images approximately 90 minutes earlier FINDINGS: Limitations: None. Bones/joints: Trimalleolar fracture again noted. Anterolateral talar dislocation remains with resolved distal tibial rotation. There is stable impaction of the fibular fracture with the lateral malleolar fragment normally located to the talus. There may be slight medial mortise widening. Soft tissues: Plaster material obscures underlying bony detail. No other foreign body noted.See above. IMPRESSION: Trimalleolar fracture with resolved tibial rotation. There is persistent but slightly decreased degree of anterolateral tibiotalar dislocation. ACT 112: Negative or not required by law. Electronically signed by Estrellita Gallardo 07-13-2024 6:58 PM
--- NOTE | 2024-07-13 19:01 | Emergency Department Note ---
ED Visit Note Left ankle fracture dislocation reduction: Both verbal and signed consent were obtained at the bedside from the patient. Sedation was performed by Dr. Azul at the bedside, please see separate documentation for details on sedation. While the patient was understood adequate sedation, traction was placed with some medial pressure to the fracture dislocation of the left ankle with satisfactory anatomic alignment appreciated following applied traction. Patient was placed in a posterior and stirrup splint. Neurovascular status remained intact following the procedure, there was good capillary refill less than 2 seconds in the digits of the left foot following the reduction. Patient tolerated the procedure well, follow-up x-ray imaging was ordered and shows improved anatomic alignment status post reduction. Neftali Casas, DO Emergency medicine .
[2024-07-13] MEDS: PROPOFOL IV EMULSION 10 MG/ML 20 ML VIAL IV STA (19:11)
--- NOTE | 2024-07-13 19:44 | History & Physical Report ---
Date of Service July 13, 2024 Assessment & Plan (1) Trimalleolar fracture: Plan: 68yo female with DM, HTN, HLP and Hypothyroidism presenting after ground level fall resulting in left trimalleolar fracture with displacement. Fracture reduced in the ER. Patient neurovascularly intact and pain is well controlled at present. Plan for possible OR in AM -Admit to medical -Elevate LLE -Morphine PRN pain -Tylenol PRN -Zofran PRN nausea -Senna 17.2mg po qHS -Miralax PRN -NPO after midnight -NSS at 100mL/hr x 2L ordered to start at midnight Appreciate Orthopedic Surgery input. If patient is to go to the OR she is medically optimized and may proceed to the OR with no additional testing. Per RCRI patient with 6% chance of sushil-operative MACE (1 point, pre-operative treatment with insulin). Will monitor blood sugars closely in the perioperative period, consider glycemic management consultation if blood sugars prove difficult to control (2) Hypertension: Plan: Chronic. Blood pressure mildly elevated -Pain control with morphine PRN -Continue Metoprolol 50mg po qHS - dose ordered to be given now -Hold Lisinopril pre-operatively -Hold Spironolactone pre-operatively (3) Diabetes type 1, uncontrolled: Plan: Very poorly controlled. [id number]=24.5 today. Patient on Lantus 20u BID. She has seen Diabetes clinic in the past -Will give Lantus 10u BID for now while NPO -ISS -Goal blood sugar 110 - 140 (4) Hypothyroidism, postablative: Plan: Chronic. Stable -Continue Synthroid (5) Dyslipidemia: Plan: Chronic -Continue Atorvastatin 80mg po qHS Plan F/E/N - NSS at 100mL/hr x 2L ordered, electrolytes WNL, NPO after midnight Ppx - SCDs Code - Full per discussion with the patient Dispo - Admit to medical History of Present Illness Chief Complaint: fall, ankle fracture Primary Care Provider: MAYRA Hernandezadis Pinon is a pleasant 68yo female with history of HTN, HLP, DM presenting after ground level fall resulting in left ankle fracture. Patient works at [employer]. She was at work today when she stepped back and lost her balance. She thinks her body twisted and her ankle remained in place and she fell to the ground. No head trauma or loss on consciousness. 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 No additional complaints such as chest pain, palpitations, SOB. Patient found to have acute left trimalleolar fracture with complete lateral tibiotalar dislocation. Successful reduction performed in the ER. Patient with no additional complaints at this time. Pain is well controlled ER Course: Propofol 100mg Fentanyl 100mcg + 50mcg Allergies Allergy/AdvReac Type Severity Reaction Status Date / Time pseudoephedrine Allergy Intermediate swelling Verified 06/25/24 14:30 Home Medications Medication Instructions Recorded Confirmed Type multivitamin 1 tab PO DAILY 04/03/18 07/13/24 History lisinopril 40 mg tablet 40 mg PO DAILY 06/06/19 07/13/24 History atorvastatin 80 mg tablet 80 mg PO HS 06/09/20 07/13/24 History metoprolol succinate 50 mg 50 mg PO HS 03/02/21 07/13/24 History tablet,extended release 24 hr (Toprol XL) blood sugar diagnostic (Accu-Chek 04/25/23 06/25/24 History Guide test strips) calcium carbonate (Calcium 600) 600 mg PO DAILY 04/25/23 07/13/24 History blood-glucose meter,continuous #1 ea 05/09/23 06/25/24 Rx (Dexcom G7 Straightedge Worker) blood-glucose sensor (Dexcom G7 #3 ea 05/09/23 06/25/24 Rx Sensor device) cyanocobalamin (vitamin B-12) 2,000 mcg PO DAILY 06/14/23 07/13/24 History 1,000 mcg capsule lancets (Accu-Chek Softclix #100 ea 09/05/23 06/25/24 History Lancets) duloxetine 30 mg capsule,delayed 30 mg PO BID 06/18/24 07/13/24 History release insulin aspart U-100 100 unit/mL 20 unit subcut DAILY 06/18/24 07/13/24 History (3 mL) subcutaneous pen (Novolog FlexPen U-100 Insulin aspart) insulin glargine 100 unit/mL (3 20 unit subcut QPM 06/18/24 07/13/24 History mL) subcutaneous pen (Lantus Solostar U-100 Insulin) potassium citrate 99 mg capsule 99 mg PO DAILY 06/18/24 07/13/24 History spironolactone 100 mg tablet 100 mg PO DAILY 06/18/24 07/13/24 History Euthyrox 150 mcg tablet 150 mcg PO DAILY #90 tabs 06/26/24 07/13/24 Rx (levothyroxine) cholecalciferol (vitamin D3) 25 4,000 unit PO DAILY 06/26/24 07/13/24 History mcg (1,000 unit) tablet (Vitamin D3) Past Med/Surg History Problem List Fall (Acute) Closed trimalleolar fracture of ankle (Acute) Trimalleolar fracture Personal history of diabetic foot ulcer Hypertension Diabetes type 1, uncontrolled Mass of right ovary benign. elective surgery being planned for 2024 Vitamin D deficiency Stage 3b chronic kidney disease Diabetic peripheral neuropathy associated with type 1 diabetes mellitus Charcot's joint of foot in type 1 diabetes mellitus Hypothyroidism, postablative Proliferative diabetic retinopathy associated with type 1 diabetes mellitus Diabetic nephropathy associated with type 1 diabetes mellitus Dysesthesia Dyslipidemia Status post partial amputation of foot Medical History Postmenopausal Goiter Graves disease Overweight Osteoarthritis Surgical History 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 History of colonoscopy History of cholecystectomy History of tooth extraction History of tonsillectomy History of cataract surgery RT/LEFT S/P cholecystectomy Family History Sister Diabetes Grandmother (Paternal) Diabetes Father Stroke COPD (chronic obstructive pulmonary disease) Brother Hemochromatosis Social History Smoking Status: Never smoker Tobacco Type: Cigarettes Cigarettes Per Day: 1-5; Second Hand Exposure: No; Do You Dip or Chew Tobacco: No; Tobacco Cessation Education Requested by Patient: No Hx Alcohol Use: Yes Alcohol type: wine Hx Substance Use: No Preferred Language: Cameroonian Communication Ability: Effective Visual Impairment: No Limitations Hearing Ability: Normal Supervisor Show Operations Required: No Beliefs That Will Affect Care: None Current Living Situation: Alone Current Living Situation Comment: home alone with cat, cares for elderly mother who lives nearby current occupational status: employed current occupation: retail @ [employer] How many Children do You have: 0 Other Information That Helps Us Care for You: No Feels Safe at Home: Yes Safety Concerns: Feels Safe At This Time Diet: regular caffeine: Yes (1-2 cups tea or coffee daily) during the past year weight has: increased > 10 lbs Physical Activity Frequency: Does not Exercise Gender Identity: Female Assistive Devices: Glasses and Walker Review of Systems Review of Systems: All systems reviewed & are unremarkable except as noted in HPI & below Physical Exam Physical Exam: General: patient resting comfortably, NAD, non-toxic in appearance, AA&O x 4 Skin: warm, dry, intact, no rashes or lesions HEENT: NC/AT, PERRL, EOMI, anicteric sclera, conjunctiva without injection, external ear normal to inspection and nontender, nares patent, moist mucus membranes, dentition intact, no oropharyngeal lesions, neck supple, trachea midline, no LAD, no thyromegaly, no JVD Heart: +S1/S2, regular, no m/r/g Lungs: equal air entry bilaterally, no rales/rhonchi/wheezes Abd: +BS, soft, NT/ND, no masses/organomegaly/ascites Ext: LLE with wrapping in place, sensation intact Neuro: nonfocal, patient AA&O x 4, speech intact, no facial droop, moving all extremities on command with equal strength 5/5 Results & Data Results & Data Vital Signs (Past 12 Hours) Vital Signs Pulse Pulse Resp BP BP Pulse Ox O2 Del Method 07/13/24 19:25 68 18 145/90 H 98 Room Air 07/13/24 19:20 64 18 110/76 98 Room Air 07/13/24 19:15 64 20 137/87 98 Room Air 07/13/24 19:10 67 18 142/84 H 98 Room Air 07/13/24 19:05 62 18 139/89 100 Non-rebreather 07/13/24 19:00 60 18 137/78 100 Non-rebreather 07/13/24 18:55 64 20 137/80 94 Nasal Cannula 07/13/24 18:53 63 20 155/88 H 98 Nasal Cannula 07/13/24 18:26 70 18 97 Nasal Cannula 07/13/24 18:21 69 18 150/90 H 98 Nasal Cannula 07/13/24 18:21 64 18 163/91 H 98 Nasal Cannula 07/13/24 18:17 70 18 150/115 H 97 Nasal Cannula 07/13/24 17:32 Room Air 07/13/24 17:32 98 Room Air 07/13/24 17:30 72 18 134/78 98 Room Air 07/13/24 16:36 72 20 134/75 96 Room Air 07/13/24 16:34 70 O2 Flow Rate 07/13/24 19:25 07/13/24 19:20 07/13/24 19:15 07/13/24 19:10 07/13/24 19:05 15 07/13/24 19:00 15 07/13/24 18:55 4 07/13/24 18:53 4 07/13/24 18:26 2 07/13/24 18:21 2 07/13/24 18:21 2 07/13/24 18:17 2 07/13/24 17:32 07/13/24 17:32 07/13/24 17:30 07/13/24 16:36 07/13/24 16:34 Laboratory Results Laboratory Results POC Glucose 246 mg/dl (70-99) H 07/13/24 20:53 Impressions Ankle X-Ray 07/13/24 18:58 Exam(s): XR LEFT ANKLE, 2 views EXAM: XR Left Ankle, 2 Views CLINICAL HISTORY: Reason for exam: post reduction. TECHNIQUE: Frontal and lateral views of the left ankle. COMPARISON: 07/13/2024 at 6:33 PM IMPRESSION: Somewhat improved alignment. Persistent incongruity at the mortise. Splint material obscures fine osseous detail. Electronically signed by: Irineo Glaser MD 07/13/24 19:43 PM PG Care Time/CCT Total # of Minutes Spent Total Time Spent with Patient: Total time spent is greater than 50% in coordination of care (as documented) at patient's floor/unit and/or counseling patient: Coding Level of Care Code 05274 INT INP/OBS CARE 3/75MIN Diagnoses Trimalleolar fracture S82.853A Hypertension I10 Diabetes type 1, uncontrolled E10.65 Hypothyroidism, postablative E89.0 Dyslipidemia E78.5
[2024-07-13] MEDS ORDERED: ONDANSETRON INJ 2 MG/ML 2 ML VIAL IV PRN (21:06)
[2024-07-13] MEDS ORDERED: GLUCOSE 40% GEL 15 GM TUBE PO PRN (21:06)
[2024-07-13] MEDS ORDERED: CARBOHYDRATES FOR HYPOGLYCEMIA PO PRN (21:06)
[2024-07-13] MEDS ORDERED: DEXTROSE 50% 50 ML SYRINGE IV PRN (21:06)
[2024-07-13] MEDS ORDERED: POLYETHYLENE (MIRALAX) 17 GM PACK PO PRN (21:06)
[2024-07-13] MEDS ORDERED: GLUCAGON FOR INJ 1 MG VIAL SQ PRN (21:06)
[2024-07-13] MEDS ORDERED: GLUCOSE 10 TAB/TUBE PO PRN (21:06)
[2024-07-13 21:53] LABS: Estimated Average Glucose 283 mg/dl; Hemoglobin A1C 11.5 % (4.5-5.6)
--- NOTE | 2024-07-13 22:01 | Emergency Department Note ---
Impression & Plan Closed trimalleolar fracture of ankle, Fall ED Provider Note CHIEF COMPLAINT: Left ankle deformity, fall HISTORY OF PRESENT ILLNESS: This 68-year-old female patient presents to the emergency department from work at [employer]. The patient states she somehow lost her footing in the checkout [employer]. She states she had sort of a slow fall, did not hit her head however complains of immediate pain in the left ankle with deformity. Patient denies taking any anticoagulants, but states she is diabetic. REVIEW OF SYSTEMS: A review of systems was performed with positives and pertinent negatives listed in the history of present illness. 10 systems were reviewed and are otherwise negative. ALLERGIES: see below MEDICATIONS: see below PMH: see below SOCIAL HISTORY: see below DDx: Ankle fracture, dislocation, contusion, intracranial injury, cervical spine injury, trauma to the thorax and abdomen. PHYSICAL EXAM: Vital signs reviewed. General: Well-appearing 68-year-old female, in no significant distress. HEENT: No scleral icterus, PERRLA, neck supple. Atraumatic. Cardiovascular: Regular rate and rhythm, no extra sounds. Pulmonary: Clear to auscultation bilaterally, normal work of breathing. Abdomen: Soft, nontender, nondistended, positive bowel sounds. Musculoskeletal: left ankle with significant deformity appreciated, lateral foot deviation with medial tenting of the skin. Pulses palpated distally. Neurologic: Patient awake alert and oriented x 3, speech is clear Skin: Warm, dry, no rash EMERGENCY DEPARTMENT COURSE/MDM: This patient was evaluated and appeared to be in no significant distress. Physical examination is concerning for a fracture dislocation of the left ankle. The x-ray confirms significant displacement of the foot. IV access had been obtained and patient was placed on the lunchroom monitor. She was medicated with 100 mcg of IV fentanyl. An attempt at reduction of the left ankle was performed without sedation however this was in an adequate reduction. The patient had been consented for conscious sedation. Please see my procedure note below. The ankle was reduced by Dr. Casas while I performed the sedation. Patient received 50 mg of propofol and there was successful reduction of the ankle. A posterior and sugar-tong splint was applied. Patient's case had been discussed with Dr. Aguillon prior to the sedation and reduction as well as after. Patient states she lives at home alone with her cat and her closest family is her 97-year-old mother. It is not safe to discharge the patient with a nonweightbearing status home alone after sedation. She will be evaluated by the hospitalist service for admission and further management. Patient is aware of the plan and agrees. PROCEDURE:Procedural Sedation Indication Left ankle fracture/dislocation. Total time: 7 minutes. Written consent was obtained after the risks and benefits were explained to the patient, including, but not limited to aspiration, allergic reaction, breathing difficulties, cardiac complications, vomiting, pain, event recall, bleeding, and/or infection. Pre-sedation examination and paperwork completed. The patient was on 100% oxygen via NRB prior to the procedure. Continuous end tidal CO2 monitoring, pulse oximetry, and cardiac monitoring were utilized. Suction, airway equipment, medications, respiratory equipment, and appropriate personnel were prepared prior to the initiation of the procedure. A time out was taken. Sedation was achieved utilizing 50 mg of propofol. After I observed the patient had reached the appropriate level of sedation the main procedure was performed with a brief period of hypoxia to 87%, patient was placed on a nonrebreather and quickly recovered without the need for manual respiratory support. Sedation was discontinued and the monitoring continued. The patient recovered quickly from the effects of the medication without complication. MONITORING: An order for cardiac monitoring was placed and the patient is noted to be in a normal sinus rhythm at 72 beats per minute. RADIOLOGY: left ankle x-ray to my interpretation reveals a trimalleolar fracture with dislocation postreduction x-ray #1 reveals an inadequate reduction. Postreduction x-ray #2 reveals adequate alignment. Please see radiology's over read below. EKG: To my interpretation reveals normal sinus rhythm at 69 bpm, left anterior fascicular block. QTc of 445. no PVC, no PAC. DISPOSITION: admission Past Med/Surg History Problem List Fall (Acute) Closed trimalleolar fracture of ankle (Acute) Trimalleolar fracture Personal history of diabetic foot ulcer Hypertension Diabetes type 1, uncontrolled Mass of right ovary benign. elective surgery being planned for 2024 Vitamin D deficiency Stage 3b chronic kidney disease Diabetic peripheral neuropathy associated with type 1 diabetes mellitus Charcot's joint of foot in type 1 diabetes mellitus Hypothyroidism, postablative Proliferative diabetic retinopathy associated with type 1 diabetes mellitus Diabetic nephropathy associated with type 1 diabetes mellitus Dysesthesia Dyslipidemia Status post partial amputation of foot Medical History Postmenopausal Goiter Graves disease Overweight Osteoarthritis Surgical History 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 History of colonoscopy History of cholecystectomy History of tooth extraction History of tonsillectomy History of cataract surgery RT/LEFT S/P cholecystectomy Family History Sister Diabetes Grandmother (Paternal) Diabetes Father Stroke COPD (chronic obstructive pulmonary disease) Brother Hemochromatosis Social History Smoking Status: Never smoker Tobacco Type: Cigarettes Cigarettes Per Day: 1-5; Second Hand Exposure: No; Do You Dip or Chew Tobacco: No; Tobacco Cessation Education Requested by Patient: No Hx Alcohol Use: Yes Alcohol type: wine Hx Substance Use: No Preferred Language: [place] Communication Ability: Effective Visual Impairment: No Limitations Hearing Ability: Normal Floor Hand Required: No Beliefs That Will Affect Care: None Current Living Situation: Alone Current Living Situation Comment: home alone with cat, cares for elderly mother who lives nearby current occupational status: employed current occupation: retail @ [employer] How many Children do You have: 0 Other Information That Helps Us Care for You: No Feels Safe at Home: Yes Safety Concerns: Feels Safe At This Time Diet: regular caffeine: Yes (1-2 cups tea or coffee daily) during the past year weight has: increased > 10 lbs Physical Activity Frequency: Does not Exercise Gender Identity: Female Assistive Devices: Glasses and Walker Allergies Allergies Allergy/AdvReac Type Severity Reaction Status Date / Time pseudoephedrine Allergy Intermediate swelling Verified 06/25/24 14:30 Home Meds Home Medications Medication Instructions Recorded Confirmed multivitamin 1 tab PO DAILY 04/03/18 07/13/24 lisinopril 40 mg tablet 40 mg PO DAILY 06/06/19 07/13/24 atorvastatin 80 mg tablet 80 mg PO HS 06/09/20 07/13/24 metoprolol succinate 50 mg 50 mg PO HS 03/02/21 07/13/24 tablet,extended release 24 hr (Toprol XL) blood sugar diagnostic (Accu-Chek 04/25/23 06/25/24 Guide test strips) calcium carbonate (Calcium 600) 600 mg PO DAILY 04/25/23 07/13/24 cyanocobalamin (vitamin B-12) 2,000 mcg PO DAILY 06/14/23 07/13/24 1,000 mcg capsule lancets (Accu-Chek Softclix #100 ea 09/05/23 06/25/24 Lancets) duloxetine 30 mg capsule,delayed 30 mg PO BID 06/18/24 07/13/24 release insulin aspart U-100 100 unit/mL 20 unit subcut DAILY 06/18/24 07/13/24 (3 mL) subcutaneous pen (Novolog FlexPen U-100 Insulin aspart) insulin glargine 100 unit/mL (3 20 unit subcut QPM 06/18/24 07/13/24 mL) subcutaneous pen (Lantus Solostar U-100 Insulin) potassium citrate 99 mg capsule 99 mg PO DAILY 06/18/24 07/13/24 spironolactone 100 mg tablet 100 mg PO DAILY 06/18/24 07/13/24 cholecalciferol (vitamin D3) 25 4,000 unit PO DAILY 06/26/24 07/13/24 mcg (1,000 unit) tablet (Vitamin D3) Previous Rx's Medication Instructions Recorded blood-glucose meter,continuous #1 ea 05/09/23 (Dexcom G7 Emergency Department Aide) blood-glucose sensor (Dexcom G7 #3 ea 05/09/23 Sensor device) Euthyrox 150 mcg tablet 150 mcg PO DAILY #90 tabs 06/26/24 (levothyroxine) Results & Data (ED) Vital Signs Vital Signs - 24 hr 07/13/24 16:34 07/13/24 16:36 07/13/24 17:30 Pulse Rate 70 72 Pulse Rate [Right Brachial] 72 Pulse Rhythm Regular Pulse Rhythm [Right Brachial] Regular Pulse Strength Normal Pulse Strength [Right Brachial] Normal Respiratory Rate 20 18 Respiratory Effort / Characteristics Non-Labored Non-Labored Respiratory Depth Normal Normal Respiratory Pattern Regular Regular Blood Pressure 134/75 Blood Pressure [Right Arm] 134/78 Blood Pressure Mean 94 Blood Pressure Mean [Right Arm] 96 Blood Pressure Position Lying Blood Pressure Position [Right Arm] Lying Pulse Oximetry 96 98 Oxygen Delivery Method Room Air Room Air Oxygen Flow Rate Sepsis Recent Fever Within 48 Hours No Sepsis New/Unexplained Change in Mental Status No Sepsis Action Taken by Nursing No Action Required End Tidal CO2 (18-54mmHg) 07/13/24 17:32 07/13/24 17:32 07/13/24 18:17 Pulse Rate Pulse Rate [Right Brachial] 70 Pulse Rhythm Pulse Rhythm [Right Brachial] Regular Pulse Strength Pulse Strength [Right Brachial] Respiratory Rate 18 Respiratory Effort / Characteristics Non-Labored Spontaneous Respiratory Depth Normal Respiratory Pattern Regular Blood Pressure Blood Pressure [Right Arm] 150/115 H Blood Pressure Mean Blood Pressure Mean [Right Arm] 126 Blood Pressure Position Blood Pressure Position [Right Arm] Pulse Oximetry 98 97 Oxygen Delivery Method Room Air Room Air Nasal Cannula Oxygen Flow Rate 2 Sepsis Recent Fever Within 48 Hours Sepsis New/Unexplained Change in Mental Status Sepsis Action Taken by Nursing End Tidal CO2 (18-54mmHg) 40 07/13/24 18:21 07/13/24 18:21 07/13/24 18:26 Pulse Rate 69 70 Pulse Rate [Right Brachial] 64 Pulse Rhythm Pulse Rhythm [Right Brachial] Regular Pulse Strength Pulse Strength [Right Brachial] Respiratory Rate 18 18 18 Respiratory Effort / Characteristics Non-Labored Spontaneous Non-Labored Spontaneous Non-Labored Spontaneous Respiratory Depth Normal Normal Normal Respiratory Pattern Regular Regular Regular Blood Pressure Blood Pressure [Right Arm] 163/91 H 150/90 H Blood Pressure Mean Blood Pressure Mean [Right Arm] 115 Blood Pressure Position Blood Pressure Position [Right Arm] Pulse Oximetry 98 98 97 Oxygen Delivery Method Nasal Cannula Nasal Cannula Nasal Cannula Oxygen Flow Rate 2 2 2 Sepsis Recent Fever Within 48 Hours Sepsis New/Unexplained Change in Mental Status Sepsis Action Taken by Nursing End Tidal CO2 (18-54mmHg) 36 40 45 07/13/24 18:53 07/13/24 18:55 07/13/24 19:00 Pulse Rate 63 64 60 Pulse Rate [Right Brachial] Pulse Rhythm Pulse Rhythm [Right Brachial] Pulse Strength Pulse Strength [Right Brachial] Respiratory Rate 20 20 18 Respiratory Effort / Characteristics Non-Labored Spontaneous Non-Labored Spontaneous Non-Labored Spontaneous Respiratory Depth Normal Normal Normal Respiratory Pattern Regular Regular Regular Blood Pressure Blood Pressure [Right Arm] 155/88 H 137/80 137/78 Blood Pressure Mean Blood Pressure Mean [Right Arm] Blood Pressure Position Blood Pressure Position [Right Arm] Pulse Oximetry 98 94 100 Oxygen Delivery Method Nasal Cannula Nasal Cannula Non-rebreather Oxygen Flow Rate 4 4 15 Sepsis Recent Fever Within 48 Hours Sepsis New/Unexplained Change in Mental Status Sepsis Action Taken by Nursing End Tidal CO2 (18-54mmHg) 30 34 33 07/13/24 19:05 07/13/24 19:10 07/13/24 19:15 Pulse Rate 62 67 64 Pulse Rate [Right Brachial] Pulse Rhythm Pulse Rhythm [Right Brachial] Pulse Strength Pulse Strength [Right Brachial] Respiratory Rate 18 18 20 Respiratory Effort / Characteristics Non-Labored Spontaneous Non-Labored Spontaneous Non-Labored Spontaneous Respiratory Depth Normal Normal Normal Respiratory Pattern Regular Regular Regular Blood Pressure Blood Pressure [Right Arm] 139/89 142/84 H 137/87 Blood Pressure Mean Blood Pressure Mean [Right Arm] Blood Pressure Position Blood Pressure Position [Right Arm] Pulse Oximetry 100 98 98 Oxygen Delivery Method Non-rebreather Room Air Room Air Oxygen Flow Rate 15 Sepsis Recent Fever Within 48 Hours Sepsis New/Unexplained Change in Mental Status Sepsis Action Taken by Nursing End Tidal CO2 (18-54mmHg) 40 35 34 07/13/24 19:20 07/13/24 19:25 Pulse Rate 64 68 Pulse Rate [Right Brachial] Pulse Rhythm Pulse Rhythm [Right Brachial] Pulse Strength Pulse Strength [Right Brachial] Respiratory Rate 18 18 Respiratory Effort / Characteristics Non-Labored Spontaneous Non-Labored Spontaneous Respiratory Depth Normal Normal Respiratory Pattern Regular Regular Blood Pressure Blood Pressure [Right Arm] 110/76 145/90 H Blood Pressure Mean Blood Pressure Mean [Right Arm] Blood Pressure Position Blood Pressure Position [Right Arm] Pulse Oximetry 98 98 Oxygen Delivery Method Room Air Room Air Oxygen Flow Rate Sepsis Recent Fever Within 48 Hours Sepsis New/Unexplained Change in Mental Status Sepsis Action Taken by Nursing End Tidal CO2 (18-54mmHg) 35 33 Home Medications Current Medication List: was personally reviewed by me Laboratory Data Attestation: I reviewed the patient's lab results. Administered Medications Discontinued Medications Fentanyl Citrate (Fentanyl Citrate Pf 100 Mcg/2 Ml Vial) 100 mcg IV NOW STA Stop: 07/13/24 17:33 Last Admin: 07/13/24 17:47 Dose: 100 mcg Documented By: DEMARCUS Fentanyl Citrate (Fentanyl Citrate Pf 100 Mcg/2 Ml Vial) 50 mcg IV NOW STA Stop: 07/13/24 18:28 Last Admin: 07/13/24 18:28 Dose: 50 mcg Documented By: BELLA Midazolam HCl (Midazolam Hcl 5 Mg/Ml 2ml Vial) 4 mg IV NOW STA Stop: 07/13/24 17:33 Last Admin: 07/13/24 18:36 Dose: Not Given Documented By: NA Propofol (Propofol Iv Emulsion 10 Mg/Ml 20 Ml Vial) 100 mg IV NOW STA Stop: 07/13/24 18:43 Last Admin: 07/13/24 19:11 Dose: 50 mg Documented By: ANGELICA Co-signed By: NINI Imaging Data Radiologist's Impression: Ankle X-Ray 07/13/24 16:53 EXAM: Radiographs of the Left Ankle 2 Views INDICATION: Dislocation. Trauma. TECHNIQUE: Frontal and lateral views of the left ankle. Images obtained at 5:17 PM COMPARISON: No relevant prior studies available. FINDINGS: Limitations: None. Bones/joints: There is acute trimalleolar fracture with lateral tibiotalar dislocation. The talar shaft appears rotated. The medial and lateral malleolar are normally located with respect to the talus. There is mild spurring of the dorsal midfoot. There is a small plantar calcaneal spur. Soft tissues: Periarticular soft tissue swelling noted. I cannot exclude open nature of the fracture as there may be some gas associated with the distal tibia. IMPRESSION: Acute left trimalleolar fracture with complete lateral tibiotalar dislocation. ACT 112: Negative or not required by law. Electronically signed by Estrellita Gallardo 07-13-2024 5:38 PM Ankle X-Ray 07/13/24 18:32 EXAM: Radiographs of the Left Ankle 2 Views INDICATION: Post reduction. TECHNIQUE: Frontal and lateral views of the left ankle. Images obtained at 8:34 PM. COMPARISON: Prereduction images approximately 90 minutes earlier FINDINGS: Limitations: None. Bones/joints: Trimalleolar fracture again noted. Anterolateral talar dislocation remains with resolved distal tibial rotation. There is stable impaction of the fibular fracture with the lateral malleolar fragment normally located to the talus. There may be slight medial mortise widening. Soft tissues: Plaster material obscures underlying bony detail. No other foreign body noted.See above. IMPRESSION: Trimalleolar fracture with resolved tibial rotation. There is persistent but slightly decreased degree of anterolateral tibiotalar dislocation. ACT 112: Negative or not required by law. Electronically signed by Estrellita Gallardo 07-13-2024 6:58 PM Ankle X-Ray 07/13/24 18:58 Exam(s): XR LEFT ANKLE, 2 views EXAM: XR Left Ankle, 2 Views CLINICAL HISTORY: Reason for exam: post reduction. TECHNIQUE: Frontal and lateral views of the left ankle. COMPARISON: 07/13/2024 at 6:33 PM IMPRESSION: Somewhat improved alignment. Persistent incongruity at the mortise. Splint material obscures fine osseous detail. Electronically signed by: Irineo Glaser MD 07/13/24 19:43 PM Discharge Plan Visit Data Chief Complaint: Fall ED Provider: Latasha Azul Discharge Problem: Closed trimalleolar fracture of ankle, Fall Patient Disposition: Admitted As Inpatient Discharge Instructions Interventions: ED Discharge Assessment Last Done: 07/13/24 20:10 Discharge Problem: Closed trimalleolar fracture of ankle Qualifiers: Encounter type: initial encounter Laterality: left Qualified Code(s): S82.852A - Displaced trimalleolar fracture of left lower leg, initial encounter for closed fracture Fall Qualifiers: Encounter type: initial encounter Qualified Code(s): W19.XXXA - Unspecified fall, initial encounter
--- NOTE | 2024-07-13 22:24 | Emergency Department Note ---
Post Sedation Assessment Vital Signs Pulse Pulse Resp BP BP Pulse Ox O2 Del Method 07/13/24 19:25 68 18 145/90 H 98 Room Air 07/13/24 19:20 64 18 110/76 98 Room Air 07/13/24 19:15 64 20 137/87 98 Room Air 07/13/24 19:10 67 18 142/84 H 98 Room Air 07/13/24 19:05 62 18 139/89 100 Non-rebreather 07/13/24 19:00 60 18 137/78 100 Non-rebreather 07/13/24 18:55 64 20 137/80 94 Nasal Cannula 07/13/24 18:53 63 20 155/88 H 98 Nasal Cannula 07/13/24 18:26 70 18 97 Nasal Cannula 07/13/24 18:21 69 18 150/90 H 98 Nasal Cannula 07/13/24 18:21 64 18 163/91 H 98 Nasal Cannula 07/13/24 18:17 70 18 150/115 H 97 Nasal Cannula 07/13/24 17:32 Room Air 07/13/24 17:32 98 Room Air 07/13/24 17:30 72 18 134/78 98 Room Air 07/13/24 16:36 72 20 134/75 96 Room Air 07/13/24 16:34 70 O2 Flow Rate 07/13/24 19:25 07/13/24 19:20 07/13/24 19:15 07/13/24 19:10 07/13/24 19:05 15 07/13/24 19:00 15 07/13/24 18:55 4 07/13/24 18:53 4 07/13/24 18:26 2 07/13/24 18:21 2 07/13/24 18:21 2 07/13/24 18:17 2 07/13/24 17:32 07/13/24 17:32 07/13/24 17:30 07/13/24 16:36 07/13/24 16:34 Recovery Score Activity: Moves 4 extremities Respiration: Deep Breath/Cough Circulation: +/-20% PreAnes Value Consciousness: Fully Awake Oxygen Saturation: > 92% On Room Air Post Anesthesia Score: 10 Discharge Sedation Level of Care: Phase I Unexpected Event: None Post Sedation Plan On clinical assessment, the patient appears to have tolerated the sedation without complications. Patient is recovering as anticipated. Patient will continue to be monitored by nursing and may be discharged when sedation discharge criteria are met per below protocol. Upon Completions of procedure up to 15 minutes continue every 5 minute vital signs and the P.A.R. score; then discharge to a Phase I or Fast Track to Phase II per the following guidelines: * Discharge Patient to appropriate Phase II area if PAR is 8 or greater or return to pre- procedure baseline. The post - procedure orders will be as directed. * If PAR score is less than 8 or not return to pre-procedure baseline then patient will follow Phase I monitoring till PAR is reached for Phase II. The Phase I may be done in procedure room or may call to secure a Phase I area. * If naloxone or flumazenil are used for reversal, hold in Phase I for continued monitoring from when last reversal dose was given for a minimum of 60 minutes or longer pending the nurse and/or physician discretion of patient condition before discharge to Phase II. Please call the Sedation Physician to re-evaluate and complete post-note for discharge to Phase II area. Do NOT discharge from procedure sedation or Phase 1 until post- sedation evaluation note is complete by procedure /sedation MD Sedation Discharge Instructions to be given to the patient at discharge to home. Sedation Data Time Out Team Members Agree on the Following: Correct Patient, Correct Procedure, Correct Site-Side and Allergies Verified Time Out Performed Time: 18:50 Sedation Times Sedation Start Date: 07/13/24 Sedation Start Time: 18:53 Sedation End Date: 07/13/24 Sedation End Time: 19:00 Total Sedation Time: 7 Procedure Times Procedure Start Time:: 18:53 Procedure End Time: 19:00 Specimens Specimens Obtained: No
[2024-07-13] MEDS: SODIUM CHLORIDE 0.9% 1,000 ML IV SCH (22:40)
[2024-07-13] MEDS: ACETAMINOPHEN 325 MG TAB PO PRN (22:44)
[2024-07-13] MEDS: DULoxetine HCL 30 MG CAP PO SCH (22:45)
[2024-07-13] MEDS: LANTUS PER UNIT CHARGE SQ SCH (22:45)
[2024-07-13] MEDS: SENNA 8.6 MG TAB PO SCH (22:48)
[2024-07-14] MEDS: METOPROLOL SUCC 50MG EXT REL TAB PO STA (00:53)
[2024-07-14] MEDS: LEVOTHYROXINE SODIUM 150 MCG TABLET PO SCH (06:24)
[2024-07-14 06:29] LABS: Mean Corpuscular Hemoglobin 31.7 pg (25.0-34.0); Mean Corpuscular Hgb Conc 33.3 g/dL (32.0-36.0); Mean Corpuscular Volume 95.2 fL (80.0-100.0); Mean Platelet Volume 12.4 fL (9.4-12.4); Platelet Count 140 K/uL (130-400); RDW Coefficient of Variation 12.5 % (11.5-14.5); RDW Standard Deviation 43.8 fL (36.4-46.3); Red Blood Count 3.78 M/uL (4.20-5.40); White Blood Count 6.92 K/ul (4.8-10.8)
[2024-07-14 06:50] LABS: INR 0.9 (0.9-1.1); Prothrombin Time 10.1 Seconds (9.0-12.0)
[2024-07-14 06:52] LABS: BUN Creatinine Ratio 19.8 (10-20); Calcium 8.4 mg/dl (8.6-10.3); Creatinine Clr Calc Pharmacy 30.6 ml/min; Potassium 4.6 mmol/L (3.5-5.1)
[2024-07-14] MEDS: INSULIN ASPART PER UNIT CHARGE SC SCH (08:35)
--- NOTE | 2024-07-14 08:51 | Electrocardiogram Report ---
Test Reason : Blood Pressure : */* mmHG Vent. Rate : 69 BPM Atrial Rate : 69 BPM P-R Int : 184 ms QRS Dur : 80 ms QT Int : 416 ms P-R-T Axes : 60 -50 72 degrees QTcB Int : 445 ms Normal sinus rhythm Left anterior fascicular block Nonspecific T wave abnormality Lateral leads Abnormal ECG When compared with ECG of 22-May-2024 22:47, No significant change was found Confirmed by Jim Wilkerson ([id number]) on 07/14/2024 8:51:07 AM Referred By: REFERRED SELF Confirmed By: Jim Wilkerson
[2024-07-14] MEDS ORDERED: PHARMACY GLYCEMIC MGMT CONSULT PRN (09:42)
--- NOTE | 2024-07-14 10:03 | Orthopedic Consultation ---
Date of Service July 14, 2024 Assessment & Plan (1) Closed trimalleolar fracture of ankle: We discussed diagnosis and treatment options at bedside this morning. She has an A1c of 11.6. She is a relatively uncontrolled diabetic. She has neuropathy of her left foot and has a history of a toe amputation of the right foot for wound complications. Given the complexity of the trimalleolar fracture, I think this would be better treated by foot and ankle specialist. We do need to give some time for the swelling to subside in her left ankle. I will contact the local foot and ankle specialist in our community and we will figure out a plan going forward. She can advance her diet at this time. She is nonweightbearing on the left ankle. She can be seen by physical therapy and case management to determine best placement options for her at this time. She does live alone. History of Present Illness Reason for Consultation: Left ankle fracture. Requesting Physician: . Attending Physician: Michael Marcelo MD Jina is a very pleasant 68-year-old female who works at [employer]. Unfortunately, yesterday she was at work when she twisted her left ankle. She had severe left ankle pain. She had a noticeable deformity of her ankle. She came to the emergency room where radiographs demonstrated a grossly displaced trimalleolar left ankle fracture. It was reduced in the emergency room. She was then admitted to the hospitalist service for observation. Orthopedics was consulted to evaluate and treat.. Allergies Allergy/AdvReac Type Severity Reaction Status Date / Time pseudoephedrine Allergy Intermediate swelling Verified 06/25/24 14:30 Home Medications Medication Instructions Recorded Confirmed Type multivitamin 1 tab PO DAILY 04/03/18 07/13/24 History lisinopril 40 mg tablet 40 mg PO DAILY 06/06/19 07/13/24 History atorvastatin 80 mg tablet 80 mg PO HS 06/09/20 07/13/24 History metoprolol succinate 50 mg 50 mg PO HS 03/02/21 07/13/24 History tablet,extended release 24 hr (Toprol XL) blood sugar diagnostic (Accu-Chek 04/25/23 06/25/24 History Guide test strips) calcium carbonate (Calcium 600) 600 mg PO DAILY 04/25/23 07/13/24 History blood-glucose meter,continuous #1 ea 05/09/23 06/25/24 Rx (Dexcom G7 Business Administration Instructor) blood-glucose sensor (Dexcom G7 #3 ea 05/09/23 06/25/24 Rx Sensor device) cyanocobalamin (vitamin B-12) 2,000 mcg PO DAILY 06/14/23 07/13/24 History 1,000 mcg capsule lancets (Accu-Chek Softclix #100 ea 09/05/23 06/25/24 History Lancets) duloxetine 30 mg capsule,delayed 30 mg PO BID 06/18/24 07/13/24 History release insulin aspart U-100 100 unit/mL 20 unit subcut DAILY 06/18/24 07/13/24 History (3 mL) subcutaneous pen (Novolog FlexPen U-100 Insulin aspart) insulin glargine 100 unit/mL (3 20 unit subcut QPM 06/18/24 07/13/24 History mL) subcutaneous pen (Lantus Solostar U-100 Insulin) potassium citrate 99 mg capsule 99 mg PO DAILY 06/18/24 07/13/24 History spironolactone 100 mg tablet 100 mg PO DAILY 06/18/24 07/13/24 History Euthyrox 150 mcg tablet 150 mcg PO DAILY #90 tabs 06/26/24 07/13/24 Rx (levothyroxine) cholecalciferol (vitamin D3) 25 4,000 unit PO DAILY 06/26/24 07/13/24 History mcg (1,000 unit) tablet (Vitamin D3) Past Med/Surg History Problem List Fall (Acute) Closed trimalleolar fracture of ankle (Acute) Trimalleolar fracture Personal history of diabetic foot ulcer Hypertension Diabetes type 1, uncontrolled Mass of right ovary benign. elective surgery being planned for 2024 Vitamin D deficiency Stage 3b chronic kidney disease Diabetic peripheral neuropathy associated with type 1 diabetes mellitus Charcot's joint of foot in type 1 diabetes mellitus Hypothyroidism, postablative Proliferative diabetic retinopathy associated with type 1 diabetes mellitus Diabetic nephropathy associated with type 1 diabetes mellitus Dysesthesia Dyslipidemia Status post partial amputation of foot Medical History Postmenopausal Goiter Graves disease Overweight Osteoarthritis Surgical History 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 History of colonoscopy History of cholecystectomy History of tooth extraction History of tonsillectomy History of cataract surgery RT/LEFT S/P cholecystectomy Family History Sister Diabetes Grandmother (Paternal) Diabetes Father Stroke COPD (chronic obstructive pulmonary disease) Brother Hemochromatosis Social History Smoking Status: Never smoker Tobacco Type: Cigarettes Cigarettes Per Day: 1-5; Second Hand Exposure: No; Do You Dip or Chew Tobacco: No; Tobacco Cessation Education Requested by Patient: No Hx Alcohol Use: Yes Alcohol type: wine Hx Substance Use: No Preferred Language: Lao Communication Ability: Effective Visual Impairment: No Limitations Hearing Ability: Normal Prism Inspector Required: No Beliefs That Will Affect Care: None Current Living Situation: Alone Current Living Situation Comment: home alone with cat, cares for elderly mother who lives nearby current occupational status: employed current occupation: [employer] How many Children do You have: 0 Other Information That Helps Us Care for You: No Feels Safe at Home: Yes Safety Concerns: Feels Safe At This Time Diet: regular caffeine: Yes (1-2 cups tea or coffee daily) during the past year weight has: increased > 10 lbs Physical Activity Frequency: Does not Exercise Gender Identity: Female Assistive Devices: Glasses and Walker Review of Systems All systems reviewed & are unremarkable except as noted in HPI & below. Physical Exam On physical examination of left ankle, the trauma splint in place. She has active motion of her toes. Constitutional WD/WN, vitals as above Eyes PERRL, conjunctivae normal, anicteric sclerae ENMT external ear and nose normal, oropharynx normal Neck trachea midline, no thyromegaly Respiratory normal respiratory effort Cardiovascular RRR, no murmur, no edema Gastrointestinal (Abdomen) normal bowel sounds, soft, nontender, no hepatosplenomegaly Psychiatric A+Ox3, euthymic affect Results & Data Results & Data Laboratory Results . Diagnostic Findings Prereduction x-rays of the left ankle show a 100% displaced triplane fracture of the left ankle. Postreduction x-rays show a reduced left trimalleolar ankle fracture. The ankle mortise is relatively well aligned. There is a fracture of the distal tip of the fibula and the medial malleolus. There is a 20% posterior malleoli are piece.. PG Care Time/CCT Total # of Minutes Spent Total Time Spent with Patient: Total time spent is greater than 50% in coordination of care (as documented) at patient's floor/unit and/or counseling patient: Coding Level of Care Code 28807 IN/OBS CONSULT LVL 4,60M Diagnoses Closed trimalleolar fracture of ankle S82.852A Encounter type: initial encounter Laterality: left (1) Closed trimalleolar fracture of ankle Encounter type: initial encounter Laterality: left Qualified Code(s): S82.852A - Displaced trimalleolar fracture of left lower leg, initial encounter for closed fracture
--- NOTE | 2024-07-14 10:44 | Pharmacy Report ---
Pharmacy Glycemic Short Note 2 - Date of Service July 14, 2024 - Glycemic Short BSG Results (Last 24 hours): 07/13/24 07/14/24 07/14/24 20:53 05:46 07:51 Glucose 234 H POC Glucose 246 H 203 H OUTPATIENT ANTIDIABETIC REGIMEN: * Lantus 20 units daily HS, Novolog ASSESSMENT: * 68 year old admitted with ankle fracture. Type 1 diabetic - pharmacy consulted for glycemic management. Patient scheduled to have surgery today. Ordered Lantus 10 units bid on admission. Reasonable to continue current regimen, may need to titrate upward once PO intake established (A1c >11%). PLAN FOR INPATIENT GLYCEMIC CONTROL: * Hold outpatient oral diabetes medications * Basal insulin * Lantus 10 units SQ BID * Bolus insulin * NovoLog per scale ACHS or Q6hrs while NPO * Goal Range: Low 110 mg/dL - High 140 mg/dL * Correction Factor: 20 mg/dL/unit * Nutritional / Prandial insulin per carb ratio of 1 unit per 12 grams CHO consumed
--- NOTE | 2024-07-14 13:27 | Hospitalist Progress Note ---
Date of Service July 14, 2024 Assessment & Plan (1) Trimalleolar fracture: Plan: Presented after ground level fall resulting in left trimalleolar fracture with displacement. Fracture reduced in the ER. - Neurovascularly intact and pain is well controlled - Elevate LLE - Tylenol and Morphine PRN pain - Zofran PRN nausea - Senna 17.2mg po qHS - Miralax PRN - Orthopedic surgery consulted -- initially scheduled for ORIF of left ankle on 07/14, however this surgery was postponed to discussed the case with foot and ankle specialist and allow swelling to subside - Per RCRI patient with 6% chance of sushil-operative MACE (1 point, pre-operative treatment with insulin) - Nonweightbearing on left ankle - PT/OT evals ordered (2) Hypertension: Plan: Chronic. Blood pressure mildly elevated - Pain control with morphine PRN - Continue Metoprolol 50mg po qHS - Lisinopril and spironolactone initially held preoperatively, however given postponed surgery, these have been resumed (3) Diabetes type 1, uncontrolled: Plan: Very poorly controlled. ThpO6L=42.5% - Patient on Lantus 20u BID. She has seen Diabetes clinic in the past - [facility] - Pharmacy glycemic management consult placed (4) Hypothyroidism, postablative: Plan: Chronic. Stable -Continue Synthroid (5) Dyslipidemia: Plan: Chronic -Continue Atorvastatin 80mg po qHS Plan Ordered PT/OT Resumed lisinopril and spironolactone Consulted pharmacy glycemic management Chronic stable problems: Hypothyroidism: Continue Synthroid Dyslipidemia: Continue atorvastatin VTE PPx: SCDs CODE STATUS: Full code Admission and Anticipated Discharge Date Admission Date: July 13, 2024 Subjective Patient seen and evaluated at bedside. She was initially scheduled for ORIF of her left ankle today, however, ortho has postponed this to discuss her case with a foot and ankle specialist. She reports that her pain is well-controlled with medication currently. We discussed her diabetic regimen and A1c and she notes that at home, her BS run 150-200s. She is connected with the nurses educator. No additional complaints or concerns at this time. Physical Exam Physical Exam: General: No acute distress, nondiaphoretic, well-developed, well-nourished. Skin: The skin was without rashes, erythema, edema, or bruising. Cardiac: Regular rate and rhythm without murmurs gallops or rubs. Pulm: Clear to auscultation bilaterally without wheezes, rales or rhonchi. No respiratory distress. 97% on room air. Abdominal: Soft, nontender, nondistended. Bowel sounds present. Neuro: A&O x3. No focal neurological deficits. Extremities: LLE wrapped in dressing. Sensation intact to light touch. Cap refill <3 seconds. Results & Data Results & Data Vital Signs (Past 12 Hours) Vital Signs Temp Pulse Resp BP Pulse Ox O2 Del Method 07/14/24 08:15 97.9 F 67 16 155/83 H 97 Room Air Laboratory Results Reviewed CBC Reviewed chemistries PG Care Time/CCT Total # of Minutes Spent Total Time Spent with Patient: Total time spent is greater than 50% in coordination of care (as documented) at patient's floor/unit and/or counseling patient: Coding Level of Care Code 80352 SUB INP/OBS CARE 3/50MIN Diagnoses Trimalleolar fracture S82.853A Hypertension I10 Diabetes type 1, uncontrolled E10.65 Hypothyroidism, postablative E89.0 Dyslipidemia E78.5
[2024-07-14] MEDS: METOPROLOL SUCC 50MG EXT REL TAB PO SCH (21:53)
[2024-07-14] MEDS: ATORVASTATIN 40 MG TAB PO SCH (21:53)
[2024-07-14] MEDS: MoRPHine SULFATE 2 MG/ML CARP IV PRN (22:07)
--- NOTE | 2024-07-15 00:17 | CT Scan Report ---
Exam(s): CT LEFT ANKLE Without Contrast EXAM: CT Left Lower Extremity Without Intravenous Contrast, Ankle CLINICAL HISTORY: Reason for exam: L ankle fracture. TECHNIQUE: Axial computed tomography images of the left ankle without intravenous contrast. Automated exposure control was utilized for the study. A dose lowering technique was utilized adhering to the principles of ALARA. COMPARISON: No relevant prior studies available. FINDINGS: Bones/joints: There is posterior and lateral subluxation of the talus. There is a mildly comminuted and displaced fracture of the distal fibula. There is lateral displacement of the fractured medial malleolus. There is generalized decreased bony mineralization. There are degenerative subchondral cystic change is noted in the cuneiforms and proximal second third and fourth metatarsals. Soft tissues: There is moderate ankle soft tissue edema. IMPRESSION: 1. There is posterior and lateral subluxation of the talus. 2. There is a mildly comminuted and displaced fracture of the distal fibula. 3. There is lateral displacement of the fractured medial malleolus. Electronically signed by: Bernardino Onofre MD 07/15/24 00:16 AM
[2024-07-15] MEDS: MoRPHine SULFATE 4 MG/ML 1 ML CARP\\VIAL IV PRN (02:15)
[2024-07-15 07:43] LABS: BUN Creatinine Ratio 17.5 (10-20); Calcium 8.8 mg/dl (8.6-10.3); Creatinine Clr Calc Pharmacy 31.9 ml/min; Potassium 4.8 mmol/L (3.5-5.1)
[2024-07-15] MEDS: lisinopril 40 MG TAB PO SCH (08:38)
[2024-07-15] MEDS: SPIRONOLACTONE 100 MG TAB PO SCH (08:46)
--- NOTE | 2024-07-15 10:03 | Hospitalist Progress Note ---
Date of Service July 15, 2024 Assessment & Plan (1) Trimalleolar fracture: Plan: Presented after ground level fall resulting in left trimalleolar fracture with displacement. Fracture reduced in the ER. - Neurovascularly intact and pain is well controlled - Elevate LLE - Tylenol and Morphine PRN pain - Zofran PRN nausea - Senna 17.2mg po qHS - Miralax PRN - Orthopedic surgery consulted -- initially scheduled for ORIF of left ankle on 07/14, however this surgery has been postponed to outpatient setting with foot and ankle specialist, Dr. Bright, to allow swelling to subside and get tighter diabetic control - Per RCRI patient with 6% chance of sushil-operative MACE (1 point, pre-operative treatment with insulin) - Nonweightbearing on left ankle - PT/OT recommending rehab given NWB status and patient lives alone; informed case management of their recommendation (2) Hypertension: Plan: Chronic. Blood pressure mildly elevated - Pain control with morphine PRN - Continue Metoprolol 50mg po qHS - Lisinopril and spironolactone initially held preoperatively, however given postponed surgery, these have been resumed (3) Diabetes type 1, uncontrolled: Plan: Very poorly controlled. EnlY0P=16.5% - Patient on Lantus 20u BID. She has seen Diabetes clinic in the past - [facility] - Pharmacy glycemic management consult placed Plan Discussed case with ortho Discussed PT recommendations with CM Chronic stable problems: Hypothyroidism: Continue Synthroid Dyslipidemia: Continue atorvastatin VTE PPx: SCDs CODE STATUS: Full code Admission and Anticipated Discharge Date Admission Date: July 13, 2024 Subjective Patient seen and evaluated at bedside. She has just been informed by Dr. Aguillon that her ORIF left ankle has been further postponed to outpatient setting. We discussed that she needs to be evaluated by PT and get their recommendations regarding dispo. Informed her that I suspect they will be r ecommending rehab given NWB status and that she lives alone. She reports that her pain is well-controlled. She denies any complaints or concerns at this time. Physical Exam Physical Exam: General: No acute distress, nondiaphoretic, well-developed, well-nourished. Skin: The skin was without rashes, erythema, edema, or bruising. Cardiac: Regular rate and rhythm without murmurs gallops or rubs. Pulm: Clear to auscultation bilaterally without wheezes, rales or rhonchi. No respiratory distress. 98% on room air. Abdominal: Soft, nontender, nondistended. Bowel sounds present. Neuro: A&O x3. No focal neurological deficits. Extremities: LLE wrapped in dressing. Sensation intact to light touch. Cap refill <3 seconds. Results & Data Results & Data Vital Signs (Past 12 Hours) Vital Signs Temp Pulse Resp BP Pulse Ox O2 Del Method 07/15/24 07:19 97.5 F L 65 16 121/77 98 Room Air Laboratory Results Reviewed BMP PG Care Time/CCT Total # of Minutes Spent Total Time Spent with Patient: Total time spent is greater than 50% in coordination of care (as documented) at patient's floor/unit and/or counseling patient: Coding Level of Care Code 00875 SUB INP/OBS CARE 3/50MIN Diagnoses Trimalleolar fracture S82.853A Hypertension I10 Diabetes type 1, uncontrolled E10.65
[2024-07-15] MEDS: LANTUS PER UNIT CHARGE SQ SCH (12:47)
--- NOTE | 2024-07-15 13:16 | Orthopedic Progress Note ---
Date of Service July 15, 2024 Assessment & Plan (1) Closed trimalleolar fracture of ankle: I reviewed her case with Dr. Abebe Bright, the foot and ankle specialist in [facility]. Given her A1c of 11.6 and the complexity of the fracture I feel this is better treated by the foot and ankle specialist. He is happy to see her in his office this week. He will likely wait for the soft tissues to calm down some before he considers any surgery to the ankle. She needs to continue to watch her glucose levels as well. She is nonweightbearing on the left ankle. She is orthopedically stable for discharge when medically ready. Full orthopedic discharge instructions were placed in the discharge summary. Tamia Muro was seen examined at bedside this morning. Overall she is doing fairly well. She is not having too much pain in the left ankle. She has no new complaints.. Review of Systems All systems reviewed & are unremarkable except as noted in HPI & below. Physical Exam On physical exam of the left ankle, the dressing is clean and dry. Her leg is out full extension.. Results & Data Results & Data Laboratory Results . Diagnostic Findings . PG Care Time/CCT Total # of Minutes Spent Total Time Spent with Patient: Total time spent is greater than 50% in coordination of care (as documented) at patient's floor/unit and/or counseling patient: Coding Level of Care Code 23140 Post Operative Follow-Up Diagnoses Closed trimalleolar fracture of ankle S82.852A Encounter type: initial encounter Laterality: left (1) Closed trimalleolar fracture of ankle Encounter type: initial encounter Laterality: left Qualified Code(s): S82.852A - Displaced trimalleolar fracture of left lower leg, initial encounter for closed fracture
--- NOTE | 2024-07-15 13:58 | Pharmacy Report ---
Pharmacy Glycemic Short Note 2 - Date of Service July 15, 2024 - Glycemic Short BSG Results (Last 24 hours): 07/14/24 07/14/24 07/15/24 16:51 20:20 06:53 Glucose 106 H POC Glucose 183 H 190 H 07/15/24 07/15/24 07:41 11:49 Glucose POC Glucose 106 H 195 H OUTPATIENT ANTIDIABETIC REGIMEN: * Lantus 20 units daily HS, Novolog ASSESSMENT: 07/15 * Patient received total of 35 units of insulin yesterday, of which 20 units were basal insulin * Fasting BSG 106 - will continue with same basal but change to once daily as this is how patient takes at home 07/14 * 68 year old admitted with ankle fracture. Type 1 diabetic - pharmacy consulted for glycemic management. Patient scheduled to have surgery today. Ordered Lantus 10 units bid on admission. Reasonable to continue current regimen, may need to titrate upward once PO intake established (A1c >11%). PLAN FOR INPATIENT GLYCEMIC CONTROL: * Hold outpatient oral diabetes medications * Basal insulin * Lantus 20 units hs * Bolus insulin * NovoLog per scale ACHS or Q6hrs while NPO * Goal Range: Low 110 mg/dL - High 140 mg/dL * Correction Factor: 20 mg/dL/unit * Nutritional / Prandial insulin per carb ratio of 1 unit per 12 grams CHO consumed
[2024-07-15] MEDS: APIXABAN 2.5 MG TAB PO SCH (22:11)
[2024-07-16 08:39] LABS: BUN Creatinine Ratio 16.4 (10-20); Creatinine Clr Calc Pharmacy 28.2 ml/min
--- NOTE | 2024-07-16 08:52 | Hospitalist Progress Note ---
Date of Service July 16, 2024 Assessment & Plan (1) Trimalleolar fracture: Plan: Presented after ground level fall resulting in left trimalleolar fracture with displacement. Fracture reduced in the ER. - Neurovascularly intact and pain is well controlled - Elevate LLE - Tylenol and oxycodone PRN pain - Zofran PRN nausea - Senna 17.2mg po qHS - Miralax PRN - Orthopedic surgery consulted -- initially scheduled for ORIF of left ankle on 07/14, however this surgery has been postponed to outpatient setting with foot and ankle specialist, Dr. Bright, to allow swelling to subside and get tighter diabetic control > Dr. Bright plans for external fixation of left ankle on 07/17 with definitive treatment after - Per RCRI patient with 6% chance of sushil-operative MACE (1 point, pre-operative treatment with insulin) - Nonweightbearing on left ankle - PT/OT recommending rehab given NWB status and patient lives alone; accepted at [facility] - informed CM of scheduled surgery 07/17 (2) Hypertension: Plan: Chronic. Blood pressure mildly elevated - Pain control with morphine PRN - Continue Metoprolol 50mg po qHS - HOLD Lisinopril 40 mg daily and spironolactone 100 mg daily pre-op. Resume postop (3) Diabetes type 1, uncontrolled: Plan: Very poorly controlled. [id number]=56.5% - Patient on Lantus 20u BID. She has seen Diabetes clinic in the past - [facility] - Pharmacy glycemic management consulted Plan Discussed discharge planning with case management Discontinued morphine Started oxycodone Held lisinopril and spironolactone Chronic stable problems: Hypothyroidism: Continue Synthroid Dyslipidemia: Continue atorvastatin VTE PPx: SCDs CODE STATUS: Full code Admission and Anticipated Discharge Date Admission Date: July 13, 2024 Subjective Patient seen and evaluated at bedside. She reports that her left ankle pain is well-controlled with medication, but does become uncomfortable when her meds are wearing off. She reports that she is eating and sleeping well. She is to see Dr. Bright to discuss a game plan moving forward today. No additional complaints or concerns at this time. Physical Exam Physical Exam: General: No acute distress, nondiaphoretic, well-developed, well-nourished. Skin: The skin was without rashes, erythema, edema, or bruising. Cardiac: Regular rate and rhythm without murmurs gallops or rubs. Pulm: Clear to auscultation bilaterally without wheezes, rales or rhonchi. No respiratory distress. 96% on room air. Abdominal: Soft, nontender, nondistended. Bowel sounds present. Neuro: A&O x3. No focal neurological deficits. Extremities: LLE wrapped in dressing. Sensation intact to light touch. Cap refill <3 seconds. Results & Data Results & Data Vital Signs (Past 12 Hours) Vital Signs Temp Pulse Resp BP Pulse Ox O2 Del Method 07/16/24 07:10 97.9 F 61 16 118/71 96 Room Air Laboratory Results Reviewed BMP PG Care Time/CCT Total # of Minutes Spent Total Time Spent with Patient: Total time spent is greater than 50% in coordination of care (as documented) at patient's floor/unit and/or counseling patient: Coding Level of Care Code 98925 SUB INP/OBS CARE 3/50MIN Diagnoses Trimalleolar fracture S82.853A Hypertension I10 Diabetes type 1, uncontrolled E10.65
[2024-07-16] MEDS ORDERED: MoRPHine SULFATE 4 MG/ML 1 ML CARP\\VIAL IV PRN (12:11)
--- NOTE | 2024-07-16 19:05 | Orthopedic Consultation ---
Date of Consultation July 16, 2024 Assessment & Plan (1) Fall: (2) Closed trimalleolar fracture of ankle: (3) Personal history of diabetic foot ulcer: (4) Hypertension: (5) Diabetes type 1, uncontrolled: (6) Vitamin D deficiency: (7) Stage 3b chronic kidney disease: (8) Diabetic peripheral neuropathy associated with type 1 diabetes mellitus: Plan This is a 68-year-old female who is quite medically complex who fell while at [employer] and sustained a trimalleolar ankle fracture/dislocation. Multiple attempts at reduction were made, however the patient does not appear to have maintained her ankle mortise based on most recent CT scan, so after having a chance to review the imaging, I do believe that the patient needs a better reduction if she hopes to allow her soft tissues to be appropriate enough for definitive fixation. Considering the patient is already 3 days from the date of injury, and she has already failed multiple close reduction attempts when using a splint to hold the reduction, at this point, I do believe that placement of an external fixator is warranted. I did discuss the patient that this would be the first stage and a two-stage procedure. The final stage of this procedure and what exactly would entail is still up for discussion due to the patient's medical history, but regardless of whether we perform open reduction internal fixation or acutely fuse her hindfoot, I do think that in order to take pressure off the soft tissues, she n eeds an external fixator placement now. Patient was eating lunch upon my evaluation, and as such was not appropriate to proceed to the OR today, so we will plan to do this tomorrow. I had a long discussion with the patient regarding the nature of this injury. We discussed in great detail the pathoanatomy, pathophysiology, treatment options. Given the significant amount of displacement as described above, my recommendation is for operative management. We discussed the risks of surgery in great detail with the patient. She understands the risks include but are not limited to loss of life/limb, DVT, incomplete relief of pain, need for additional surgery, hardware complication, hardware failure, pin site irritation. Following placement of the external fixator tomorrow, we will discuss what the long-term solution may be. Given the fact that her CT scan was done with her ankle now reduced, I do think this may need to be repeated after placement of the external fixator, as well. The question becomes if we should perform open reduction and internal fixation versus acute tibial talocalcaneal arthrodesis. In most healthy patients, open reduction internal fixation of the fractures is appropriate, but this patient is at a significant risk of infection, and incomplete bony healing due to her poorly controlled diabetes. Because of this, it may make more sense to proceed with attempted tibiotalar calcaneal arthrodesis. I will discuss this in great detail with the patient after her external fixator is placed. Please keep the patient n.p.o. tonight after midnight for surgery tomorrow. Maintain nonweightbearing. Okay for DVT prophylaxis from orthopaedic standpoint History of Present Illness Reason for Consultation: left ankle fracture Requesting Physician: Dr Aguillon Attending Physician: Michael Marcelo MD History of Present Illness Jina Pinon is a pleasant 68yo female with history of HTN, HLP, DM who presented to [facility] after ground level fall resulting in left ankle fracture. Patient works at [employer]. She was at work on Tuesday when she stepped back and lost her balance. She thinks her body twisted and her ankle remained in place and she fell to the ground. No head trauma or loss on consciousness. 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 No additional complaints such as chest pain, palpitations, SOB. Patient found to have acute left trimalleolar fracture with complete lateral tibiotalar dislocation. She underwent multiple attempts at reduction and is currently resting in a below-knee splint. Dr. Aguillon was on-call this weekend and reach out to me about managing this patient due to the complex nature of her injury and her past medical history. Most importantly with regards to the patient's history is her uncontrolled diabetes with most recent A1c of 11.5. 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 Patient denies any additional areas of pain except for her left ankle. Allergies Allergy/AdvReac Type Severity Reaction Status Date / Time pseudoephedrine Allergy Intermediate swelling Verified 06/25/24 14:30 Home Medications Medication Instructions Recorded Confirmed Type multivitamin 1 tab PO DAILY 04/03/18 07/13/24 History lisinopril 40 mg tablet 40 mg PO DAILY 06/06/19 07/13/24 History atorvastatin 80 mg tablet 80 mg PO HS 06/09/20 07/13/24 History metoprolol succinate 50 mg 50 mg PO HS 03/02/21 07/13/24 History tablet,extended release 24 hr (Toprol XL) blood sugar diagnostic (Accu-Chek 04/25/23 06/25/24 History Guide test strips) calcium carbonate (Calcium 600) 600 mg PO DAILY 04/25/23 07/13/24 History blood-glucose meter,continuous #1 ea 05/09/23 06/25/24 Rx (Dexcom G7 Clip Wrapper) blood-glucose sensor (Dexcom G7 #3 ea 05/09/23 06/25/24 Rx Sensor device) cyanocobalamin (vitamin B-12) 2,000 mcg PO DAILY 06/14/23 07/13/24 History 1,000 mcg capsule lancets (Accu-Chek Softclix #100 ea 09/05/23 06/25/24 History Lancets) duloxetine 30 mg capsule,delayed 30 mg PO BID 06/18/24 07/13/24 History release insulin aspart U-100 100 unit/mL 20 unit subcut DAILY 06/18/24 07/13/24 History (3 mL) subcutaneous pen (Novolog FlexPen U-100 Insulin aspart) insulin glargine 100 unit/mL (3 20 unit subcut QPM 06/18/24 07/13/24 History mL) subcutaneous pen (Lantus Solostar U-100 Insulin) potassium citrate 99 mg capsule 99 mg PO DAILY 06/18/24 07/13/24 History spironolactone 100 mg tablet 100 mg PO DAILY 06/18/24 07/13/24 History Euthyrox 150 mcg tablet 150 mcg PO DAILY #90 tabs 06/26/24 07/13/24 Rx (levothyroxine) cholecalciferol (vitamin D3) 25 4,000 unit PO DAILY 06/26/24 07/13/24 History mcg (1,000 unit) tablet (Vitamin D3) Patient History Medical History Postmenopausal Goiter Graves disease Overweight Osteoarthritis Surgical History 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 History of colonoscopy History of cholecystectomy History of tooth extraction History of tonsillectomy History of cataract surgery RT/LEFT S/P cholecystectomy Family History Sister Diabetes Grandmother (Paternal) Diabetes Father Stroke COPD (chronic obstructive pulmonary disease) Brother Hemochromatosis Social History Smoking Status: Never smoker Tobacco Type: Cigarettes Cigarettes Per Day: 1-5; Second Hand Exposure: No; Do You Dip or Chew Tobacco: No; Tobacco Cessation Education Requested by Patient: No Hx Alcohol Use: Yes Alcohol type: wine Hx Substance Use: No Preferred Language: Algerian Communication Ability: Effective Visual Impairment: No Limitations Hearing Ability: Normal Plastics Worker Required: No Beliefs That Will Affect Care: None Current Living Situation: Alone Current Living Situation Comment: home alone with cat, cares for elderly mother who lives nearby current occupational status: employed current occupation: [employer] @ [employer] How many Children do You have: 0 Other Information That Helps Us Care for You: No Feels Safe at Home: Yes Safety Concerns: Feels Safe At This Time Diet: regular caffeine: Yes (1-2 cups tea or coffee daily) during the past year weight has: increased > 10 lbs Physical Activity Frequency: Does not Exercise Gender Identity: Female Assistive Devices: Walker Review of Systems Review of Systems: All systems reviewed & are unremarkable except as noted in HPI & below Physical Exam Physical Exam: Patient's left lower extremity is in a splint. She demonstrates active EHL and FHL function. She has diminished sensation in her toes and this is at baseline per the patient. She states that she also has diminished sensation throughout most of her foot at baseline. Her toes appear warm and well-perfused. Results & Data Vital Signs (Past 12 Hours) Vital Signs Temp Pulse Resp BP Pulse Ox O2 Del Method 07/16/24 16:53 36.7 C 57 L 18 101/67 96 Room Air 07/16/24 09:00 Room Air 07/16/24 07:10 36.6 C 61 16 118/71 96 Room Air Diagnostic Findings Multiple x-rays of the left ankle as well as a CT scan of left ankle were personally interpreted and reviewed. These demonstrate a trimalleolar ankle fracture that was initially severely dislocated and multiple attempts at reduction have resulted in a partially reduced ankle mortise. At current, based on the patient's CT scan, she is still not reduced within the ankle mortise. (1) Fall Encounter type: initial encounter Qualified Code(s): W19.XXXA - Unspecified fall, initial encounter (2) Closed trimalleolar fracture of ankle Encounter type: initial encounter Laterality: left Qualified Code(s): S82.852A - Displaced trimalleolar fracture of left lower leg, initial encounter for closed fracture
[2024-07-16] MEDS: LANTUS PER UNIT CHARGE SQ SCH (21:53)
[2024-07-16] MEDS: oxyCODONE HCL IR 5 MG TAB (IMMEDIATE RELEASE) PO PRN (23:34)
--- NOTE | 2024-07-17 08:28 | Hospitalist Progress Note ---
Date of Service July 17, 2024 Assessment & Plan (1) Trimalleolar fracture: Plan: Presented after ground level fall resulting in left trimalleolar fracture with displacement. Fracture reduced in the ER\, splinted Neurovascularly intact and pain is well controlled Pain control: tylenol, oxocodone prn Elevation LLE Antiemetics prn Bowel regimen: senna HS andrea, miralax prn. Adding colace BID Orthopedic surgery consulted -- initially scheduled for ORIF of left ankle on 07/14, however this surgery has been postponed to outpatient setting with foot and ankle specialist, Dr. Bright, to allow swelling to subside and get tighter diabetic control > Dr. rBight plans for external fixation of left ankle on 07/17 with definitive treatment after Per RCRI patient with 6% chance of sushil-operative MACE (1 point, pre-operative treatment with insulin) Nonweightbearing on left ankle PT/OT recommending rehab given NWB status and patient lives alone; accepted [facility] - informed CM of scheduled surgery 07/17 07/17 NPO for ORIF this morning with Dr Bright, definitive treatment after given NWB planning for [facility] following surgery/pending bed. CM to follow IVF added while NPO, lisinopril/spironolactone on hold until post-op BP/labs assessed Labs pending from this morning Eliquis to resume post-op for DVT proph, monitor CBC (2) Hypertension: Plan: Chronic, stable w/ pain control Continues on metoprolol 50mg daily Home lisinopril 40mg, spironolactone placed on HOLD for now -- BP 113/69 and will monitor to resume post op pending BP/renal function (3) Diabetes type 1, uncontrolled: Plan: Very poorly controlled. [id number]=52.5% - Patient on Lantus 20u BID. She has seen Diabetes clinic in the past - [facility] - Pharmacy glycemic management consulted Plan Chronic stable problems: Hypothyroidism: Continue Synthroid Dyslipidemia: Continue atorvastatin VTE PPx: SCDs, eliquis as above Dispo: NPO for ORIF today with Dr Bright, planning for [facility] when bed available, possible next 24-48hrs pending post-operative course. CM to follow. Admission and Anticipated Discharge Date Admission Date: July 13, 2024 Supervising Physician Co-Signing Physician Notes The patient was not seen by me. The chart was reviewed. Case discussed with RIK Fleming. Agree with assessment and plan Subjective EValuated this morning, resting in bed, reading a book. Waiting for surgery. Pain controlled, not moving it much. Some numbness but able to wiggle toes/cap refill wnl. Eliquis held this morning, not typically on at baseline but discussed for DVT proph and to be resumed post op Last BM on Tuesday, does have increased bowel sounds/flatus and given bowel regimen today. Planning for [place]. No fever/chills/cp/sob at present time. Questions/concerns addressed at this time. Physical Exam 2 Physical Exam: General: 68yo female sitting up in bed, NAD, waiting surgery HEENT: head atrauamtic, normocephalic, mm slightly dry, trachea midline Resp; Even/unlabored, no w/c/r, on room air CV: RRR, no significant m/r/g, no pitting edema, cap refill wnl GI: +BS throughout, slight distension, no overt tenderness/guarding (does have R sided ovarian cyst/mass, not appreciated on exam) : no shepherd MSK/Neuro: LLE with splint/SOHAN wrap, toes mobile/cap refill wnl, slight decreased sensation to light touch Psych: AOx3, cooperative with exam Results & Data Results & Data Vital Signs (Past 12 Hours) Vital Signs Temp Pulse Resp BP BP Pulse Ox O2 Del Method 07/17/24 07:14 36.9 C 61 16 113/69 97 Room Air 07/16/24 21:12 36.8 C 65 18 103/64 95 Room Air Laboratory Results 07/14/24 05:46 07/16/24 07:51 PG Care Time/CCT Total # of Minutes Spent Total Time Spent with Patient: Total time spent is greater than 50% in coordination of care (as documented) at patient's floor/unit and/or counseling patient: Coding Level of Care Code 77715 SUB INP/OBS CARE 2/35MIN Diagnoses Trimalleolar fracture S82.853A Hypertension I10 Diabetes type 1, uncontrolled E10.65
[2024-07-17] MEDS ORDERED: BUPIVACAINE 0.25% PF 30 ML VIAL ONE (09:08)
[2024-07-17] MEDS ORDERED: EPINEPHrine INJ 1 MG/ML AMP ONE (09:08)
[2024-07-17] MEDS: SODIUM CHLORIDE 0.9% 1,000 ML IV SCH (09:48)
[2024-07-17] MEDS: DOCUSATE SODIUM 100 MG CAP PO SCH (10:44)
[2024-07-17 11:11] LABS: BUN Creatinine Ratio 18.9 (10-20); Calcium 9.1 mg/dl (8.6-10.3); Creatinine Clr Calc Pharmacy 25.9 ml/min; Potassium 4.9 mmol/L (3.5-5.1)
--- NOTE | 2024-07-17 12:05 | History & Physical Bridge Note ---
Date of Service July 17, 2024 History & Physical Bridge Note I have examined the patient, reviewed the History & Physical and in the interval since the performance of the History & Physical I have noted the following changes of clinical significance: This is a 68-year-old female who is quite medically complex who fell while at work at [employer] and sustained a trimalleolar ankle fracture/dislocation. Multiple attempts at reduction were made, however the patient does not appear to have maintained her ankle mortise based on most recent CT scan, so after having a chance to review the imaging, I do believe that the patient needs a better reduction if she hopes to allow her soft tissues to be appropriate enough for definitive fixation. Considering the patient is already 4 days from the date of injury, and she has already failed multiple close reduction attempts when using a splint to hold the reduction, at this point, I do believe that placement of an external fixator is warranted. I did discuss with the patient that this would be the first stage and a two- stage procedure. The final stage of this procedure and what exactly it would entail is still up for discussion due to the patient's medical history, but regardless of whether we perform open reduction internal fixation or acutely fuse her hindfoot, I do think that in order to take pressure off the soft tissues, she needs an external fixator placement now. Patient was eating lunch upon my evaluation yesterday, and as such was not appropriate to proceed to the OR, so we have scheduled this to take place today. I had a long discussion with the patient regarding the nature of this injury. We discussed in great detail the pathoanatomy, pathophysiology, treatment options. Given the significant amount of displacement as described above, my recommendation is for operative management. We discussed the risks of surgery in great detail with the patient. She understands the risks include but are not limited to loss of life/limb, DVT, incomplete relief of pain, need for additional surgery, hardware complication, hardware failure, pin site irritation, iatrogenic injury to bone/nerve/tendon/vessel. Following placement of the external fixator, we will discuss what the long-term solution may be. Given the fact that her CT scan was done with her ankle malreduced, I do think this may need to be repeated after placement of the external fixator, as well. The question becomes if we should perform open reduction and internal fixation versus acute tibiotalocalcaneal arthrodesis. In most healthy patients, open reduction internal fixation of the fractures is appropriate, but this patient is at a significant risk of infection, and incomplete bony healing due to her poorly controlled diabetes. Because of this, it may make more sense to proceed with attempted tibiotalocalcaneal arthrodesis. I will discuss this in great detail with the patient after her external fixator is placed. Surgical plan for 07/17/24: LEFT ankle closed reduction and external fixator placement
--- NOTE | 2024-07-17 12:14 | Anesthesiology Consultation ---
Date of Service July 17, 2024 Assessment & Plan ASA ASA3 Proposed Anesthesia Anesthesia Type: General Risk / Benefits Reviewed With: PT / POA / Parent / Guardian, Accepts Plan and Informed Consent Obtained History Surgery Operation Date: 07/14/24 09:00 Proposed Procedures p Open Reduction Internal Fixation Ankle(Left) - Vaibhav Aguillon DO s External Fixator Application(Left) - Vaibhav Aguillon DO Operation Date: 07/17/24 12:45 Proposed Procedures p External Fixation of Left Ankle - Abebe Bright DO Height/Weight Height: 5 ft 6 in Weight: 88.5 kg Allergies Allergy/AdvReac Type Severity Reaction Status Date / Time pseudoephedrine Allergy Intermediate swelling Verified 06/25/24 14:30 Medications Home Medications Medication Instructions Recorded Confirmed Last Taken multivitamin 1 tab PO DAILY 04/03/18 07/13/24 07/13/24 09:00 lisinopril 40 mg tablet 40 mg PO DAILY 06/06/19 07/13/24 07/13/24 09:00 atorvastatin 80 mg tablet 80 mg PO HS 06/09/20 07/13/24 07/12/24 23:30 metoprolol succinate 50 mg 50 mg PO HS 03/02/21 07/13/24 07/12/24 23:00 tablet,extended release 24 hr (Toprol XL) blood sugar diagnostic (Accu-Chek 04/25/23 06/25/24 Unknown Guide test strips) calcium carbonate (Calcium 600) 600 mg PO DAILY 04/25/23 07/13/24 07/13/24 09:00 blood-glucose meter,continuous #1 ea 05/09/23 06/25/24 Unknown (Dexcom G7 Optical Glass Inspector) blood-glucose sensor (Dexcom G7 #3 ea 05/09/23 06/25/24 Unknown Sensor device) cyanocobalamin (vitamin B-12) 2,000 mcg PO DAILY 06/14/23 07/13/24 07/13/24 09:00 1,000 mcg capsule lancets (Accu-Chek Softclix #100 ea 09/05/23 06/25/24 Unknown Lancets) duloxetine 30 mg capsule,delayed 30 mg PO BID 06/18/24 07/13/24 07/13/24 09:00 release insulin aspart U-100 100 unit/mL 20 unit subcut DAILY 06/18/24 07/13/24 07/13/24 09:00 (3 mL) subcutaneous pen (Novolog FlexPen U-100 Insulin aspart) insulin glargine 100 unit/mL (3 20 unit subcut QPM 06/18/24 07/13/24 07/12/24 23:00 mL) subcutaneous pen (Lantus Solostar U-100 Insulin) potassium citrate 99 mg capsule 99 mg PO DAILY 06/18/24 07/13/24 07/13/24 09:00 spironolactone 100 mg tablet 100 mg PO DAILY 06/18/24 07/13/24 07/13/24 09:00 Euthyrox 150 mcg tablet 150 mcg PO DAILY #90 tabs 06/26/24 07/13/24 07/13/24 07:00 (levothyroxine) cholecalciferol (vitamin D3) 25 4,000 unit PO DAILY 06/26/24 07/13/24 07/13/24 09:00 mcg (1,000 unit) tablet (Vitamin D3) Active Medications Generic Name Dose Route Start Last Admin Trade Name Freq PRN Reason Stop Dose Admin Acetaminophen 650 mg 07/13/24 21:06 07/16/24 09:25 Acetaminophen 325 Mg Tab PO 08/12/24 21:05 650 mg Q4H PRN Administration Pain or Fever Apixaban 2.5 mg 07/15/24 21:00 07/17/24 08:48 Apixaban 2.5 Mg Tab PO 08/14/24 20:59 Not Given BID ELODIA Atorvastatin Calcium 80 mg 07/14/24 21:00 07/16/24 20:35 Atorvastatin 40 Mg Tab PO 08/13/24 20:59 80 mg HS ELODIA Administration Docusate Sodium 100 mg 07/17/24 10:00 07/17/24 10:44 Docusate Sodium 100 Mg Cap PO 08/16/24 09:59 100 mg BID ELODIA Administration Duloxetine HCl 30 mg 07/13/24 21:15 07/17/24 09:11 Duloxetine Hcl 30 Mg Cap PO 08/12/24 21:14 30 mg BID ELODIA Administration Sodium Chloride 1,000 mls @ 60 mls/hr 07/17/24 09:45 07/17/24 09:48 Nss IV 07/18/24 02:24 60 mls/hr .[id number] ELODIA Administration Insulin Aspart 0 units 07/14/24 07:30 07/17/24 11:42 Insulin Aspart Per Unit Charge SC 08/13/24 07:29 1 units ACHS ELODIA Administration Insulin Glargine 20 units 07/16/24 21:00 07/16/24 21:53 Lantus Per Unit Charge SQ 08/15/24 20:59 20 units HS ELODIA Administration Levothyroxine Sodium 150 mcg 07/14/24 06:30 07/17/24 05:49 Levothyroxine Sodium 150 Mcg Tablet PO 08/13/24 06:29 150 mcg DAILYBB ELODIA Administration Lisinopril 40 mg 07/15/24 09:00 07/16/24 09:14 Lisinopril 40 Mg Tab PO 08/14/24 08:59 40 mg DAILY ELODIA Administration Metoprolol Succinate 50 mg 07/14/24 21:00 07/16/24 21:56 Metoprolol Succ 50mg Ext Rel Tab PO 08/13/24 20:59 50 mg HS ELODIA Administration Oxycodone HCl 5 mg 07/16/24 12:10 07/16/24 23:34 Oxycodone Hcl Ir 5 Mg Tab (Immediate Release) PO 07/30/24 12:09 5 mg Q6H PRN Administration Mod-Sev Pain (Scale 4-10) Sennosides 17.2 mg 07/13/24 21:06 07/16/24 21:54 Senna 8.6 Mg Tab PO 08/12/24 21:05 17.2 mg HS ELODIA Administration Spironolactone 100 mg 07/15/24 09:00 07/16/24 09:14 Spironolactone 100 Mg Tab PO 08/14/24 08:59 100 mg DAILY ELODIA Administration NPO Date Last Intake of Fluids: 07/16/24 Time Last Intake of Fluids: 23:00 Last Intake of Fluids Comment: 910 sip water for med Date Last Intake of Solids: 07/16/24 Time Last Intake of Solids: 23:00 Last Intake of Solids Comment: turkey sandwich, cake Past Medical History Medical History Postmenopausal Goiter Graves disease Overweight Osteoarthritis Exercise / Class Metabolic Activity II 4-5 Yardwork/Stairs/Walk up hill Past Family History Family History Sister Diabetes Grandmother (Paternal) Diabetes Father Stroke COPD (chronic obstructive pulmonary disease) Brother Hemochromatosis Past Surgical History Surgical History 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 History of colonoscopy History of cholecystectomy History of tooth extraction History of tonsillectomy History of cataract surgery RT/LEFT S/P cholecystectomy Past Anesthesia History No Hx of Anesthesia Complications and No Family Hx of Anesthesia Complications History of PONV No Hx of PONV and No Hx of Motion Sickness Social History Smoking Status: Never smoker Smoking cigarettes per day: 1-5 Do You Dip or Chew Tobacco: No Hx Alcohol Use: Yes Alcohol type: wine alcohol intake frequency: holidays/special occasions only Hx Substance Use: No substance use type: does not use Review of Systems denies fever/cough/ colds/ chest pain/ SOB/ HERBERT denies HERBERT Physical Exam Vital Signs Last Vital Signs Temp 36.8 C 07/17/24 12:03 Pulse 60 07/17/24 12:03 Resp 20 07/17/24 12:03 BP 128/72 07/17/24 12:03 Pulse Ox 100 07/17/24 12:03 O2 Del Method Room Air 07/17/24 12:03 O2 Flow Rate 15 07/13/24 19:05 ENMT Mouth: no TMJ abnormality and no dentition abnormality Thyromental Distance: > or= 3.5 Finger Breadths Mallampati Class: II Neck neck extension not limited Respiratory normal respiratory effort; no respiratory distress Auscultation: lungs clear to auscultation bilaterally Cardiovascular Rate/Rhythm: regular rate and regular rhythm Neurologic moves all extremities Psychiatric Orientation: alert and oriented x 3 Testing Laboratory Results 07/14/24 05:46 07/17/24 10:10 PT 10.1 Seconds (9.0-12.0) 07/14/24 05:46 INR 0.9 (0.9-1.1) 07/14/24 05:46 Hemoglobin A1c 11.5 % (4.5-5.6) H 07/13/24 20:22 07/17/24 07/17/24 11:31 06:52 POC Glucose 144 H 162 H
[2024-07-17] MEDS ORDERED: ONDANSETRON INJ 2 MG/ML 2 ML VIAL IV PRN (12:43)
[2024-07-17] MEDS ORDERED: HYDROmorphone INJ 1 MG/ML SYRINGE IV PRN (12:43)
[2024-07-17] MEDS ORDERED: ePHEDrine sulfate 50 MG/ML AMP IV PRN (12:43)
[2024-07-17] MEDS ORDERED: ATROPINE SULFATE 0.1 MG/ML 10ML SYR IV PRN (12:43)
[2024-07-17] MEDS ORDERED: PROPOFOL IV EMULSION 10 MG/ML 20 ML VIAL IV ONE (12:48)
[2024-07-17] MEDS ORDERED: LIDOCAINE 2% 2 ML VIAL/AMP(20MG/ML) INFIL ONE (12:48)
[2024-07-17] MEDS ORDERED: fentaNYL citrate PF 100 MCG/2 ML VIAL ONE (12:49)
[2024-07-17] MEDS ORDERED: MIDAZOLAM HCL 1 MG/ML 2ML VIAL ONE (12:49)
--- NOTE | 2024-07-17 13:22 | Pharmacy Report ---
Pharmacy Glycemic Short Note 2 - Date of Service July 17, 2024 - Glycemic Short BSG Results (Last 24 hours): 07/16/24 07/16/24 07/17/24 16:51 20:44 06:52 Glucose POC Glucose 145 H 177 H 162 H 07/17/24 07/17/24 10:10 11:31 Glucose 143 H POC Glucose 144 H OUTPATIENT ANTIDIABETIC REGIMEN: * Lantus 20 units daily HS, Novolog ASSESSMENT: 07/17 * Patient received 38 units of insulin yesterday, 20 of basal. * Fasting this AM 162 mg/dL- patient now NPO for surgery * No change to insulin today * SCr continues to trend upward- monitor 07/15 * Patient received total of 35 units of insulin yesterday, of which 20 units were basal insulin * Fasting BSG 106 - will continue with same basal but change to once daily as this is how patient takes at home 07/14 * 68 year old admitted with ankle fracture. Type 1 diabetic - pharmacy consulted for glycemic management. Patient scheduled to have surgery today. Ordered Lantus 10 units bid on admission. Reasonable to continue current regimen, may need to titrate upward once PO intake established (A1c >11%). PLAN FOR INPATIENT GLYCEMIC CONTROL: * Hold outpatient oral diabetes medications * Basal insulin * Lantus 20 units hs * Bolus insulin * NovoLog per scale ACHS or Q6hrs while NPO * Goal Range: Low 110 mg/dL - High 140 mg/dL * Correction Factor: 20 mg/dL/unit * Nutritional / Prandial insulin per carb ratio of 1 unit per 12 grams CHO consumed
[2024-07-17] MEDS: ceFAZolin 2000MG 2,000 MG/15 ML SYR IV ONE (13:29)
[2024-07-17] MEDS ORDERED: PHENYLEPHRINE 100MCG/ML 5ML SYR ONE (13:48)
[2024-07-17] MEDS ORDERED: ONDANSETRON INJ 2 MG/ML 2 ML VIAL ONE (13:58)
--- NOTE | 2024-07-17 14:56 | Fluoroscopy Report ---
FL ankle LT min 3V RTN CLINICAL HISTORY: LT ANKLE ORIF COMPARISON STUDY: Ankle radiographs 07/13/2024 FLUOROSCOPY TIME: 50 seconds FLUOROSCOPY IMAGES: 9 EXPOSURE DOSE: 1.0686 mGy FINDINGS: Acute ankle fractures are redemonstrated. Surgical sponges project over the foot and ankle. External fixation hardware noted with partially imaged cannulated screws traversing the tibia and ca lcaneus. IMPRESSION: Fluoroscopic assistance as above. ACT 112: Negative or not required by law. Electronically signed by: Nick Dean M.D. 07/17/2024 2:54 PM
[2024-07-17] MEDS ORDERED: ceFAZolin 1000MG 1,000 MG/7.5 ML SYR IV SCH (14:58)
--- NOTE | 2024-07-17 15:06 | Post Operative Brief Note ---
Immediate Post Op Note Date of Surgery July 17, 2024 Pre & Post Diagnosis Operation Date: 07/17/24 12:45 Pre-Op Diagnosis: Closed [place]ima[place]lar Left Ankle Fracture Post-Op Diagnosis: Closed [place]ima[place] Left Ankle Fracture I identified the patient and participated in the time-out.: Yes Procedure Operation Date: 07/17/24 12:45 Actual Procedures p External Fixation of Left Ankle with Application of Below the Knee Splint(Left) - Abebe Bright DO 1. Close reduction external fixation left ankle 2. Physician directed fluoroscopy less than 1 hour 3. Application of below-knee splint Surgeon Abebe Bright DO [place] [employer] none Estimated Blood Loss 10 Findings Consistent with Post-Op Diagnosis Fluids see anesthesia record Anesthesia Type General Complications none immediately apparent Disposition Disposition: Recovery Room Overlapping Procedure I was present for: the critical portions of procedure. ( the entire case)
[2024-07-17] MEDS: fentaNYL citrate PF 100 MCG/2 ML VIAL IV PRN (15:37)
[2024-07-17] MEDS: ceFAZolin 2,000 MG/15 ML IV PUSH IV ONE (16:33)
--- NOTE | 2024-07-17 16:34 | Anesthesiology Progress Note ---
Date of Service July 17, 2024 Anesthesia Post Procedure Vital Signs Vital Signs: Temp Pulse Pulse Resp BP BP Pulse Ox 07/17/24 15:50 36.4 C L 67 14 150/87 H 100 07/17/24 15:40 66 14 137/78 98 07/17/24 15:30 67 14 130/82 99 07/17/24 15:20 69 14 155/88 H 99 07/17/24 15:10 70 15 146/83 H 99 07/17/24 15:00 68 15 149/79 H 99 07/17/24 14:58 36.0 C L 67 22 138/88 97 07/17/24 12:03 36.8 C 60 20 128/72 100 07/17/24 07:14 36.9 C 61 16 113/69 97 07/16/24 21:12 36.8 C 65 18 103/64 95 07/16/24 20:19 07/16/24 16:53 36.7 C 57 L 18 101/67 96 O2 Del Method O2 Flow Rate 07/17/24 15:50 Nasal Cannula 2 07/17/24 15:40 Nasal Cannula 2 07/17/24 15:30 Room Air 07/17/24 15:20 Room Air 07/17/24 15:10 Oxymask 2 07/17/24 15:00 Oxymask 4 07/17/24 14:58 Oxymask 4 07/17/24 12:03 Room Air 07/17/24 07:14 Room Air 07/16/24 21:12 Room Air 07/16/24 20:19 Room Air 07/16/24 16:53 Room Air Pain Intensity Right Ankle: Pain Intensity: 1 Left Foot: Pain Intensity: 4 Transfer of Care Handoff Completed per policy Notes Mental Status: alert / awake / arousable and participated in evaluation Patient Amnestic to Procedure: Yes Nausea / Vomiting: adequately controlled Pain: adequately controlled Airway Patency, RR, SpO2: stable & adequate BP & HR: stable & adequate Hydration State: stable & adequate Anesthetic Complications: no major complications apparent
--- NOTE | 2024-07-17 16:36 | CT Scan Report ---
EXAMINATION: CT ankle left without con CLINICAL HISTORY: History of fracture, external fixator in place, preop planning PRIORS: [place] [id number] TECHNIQUE: Contiguous axial images were obtained through the left ankle without the use of intravenous contrast. Sagittal and coronal reformations are supplied. FINDINGS: Moderate to advanced osseous demineralization noted. External fixator in place creating beam hardening artifact. A trimalleolar fracture is present with mild widening of the fibula-talus joint/ankle mortise. The medial malleolus fracture is predominantly oblique with intra-articular extension and small bony fragment present superior and medial to the medial malleolar fragment. A mildly comminuted distal fibula fracture is present with intra-articular extension and mild widening of the mortise at this level. Approximately 5 mm of lateral displacement of the distal fracture fragment with respect to the proximal is present. An oblique to mildly comminuted posterior malleolus fracture present with intra-articular extension and 4.7 mm of superior/caudal displacement of the fracture fragment. No significant periosteal reaction is present. Talar dome is unremarkable. Mild diffuse soft tissue swelling noted throughout the ankle. No significant ankle joint effusion. Subtalar joint is patent. No calcaneal fracture. Moderate degenerative change throughout the visualized midfoot. No radiopaque foreign body or subcutaneous gas. IMPRESSION: A trimalleolar fracture is discussed above with external fixation. Electronically signed by Sandy Hernandez 07-17-2024 4:36 PM
[2024-07-17 19:40] VITALS: RESP 18
[2024-07-17] MEDS: ceFAZolin 2000MG 2,000 MG/15 ML SYR IV SCH (21:55)
[2024-07-18 07:43] VITALS: TEMP 98.1
[2024-07-18 08:06] LABS: Hematocrit (blood only) 32.2 % (37.0-47.0); Hemoglobin 10.7 g/dl (12.0-16.0); Mean Corpuscular Hemoglobin 32.1 pg (25.0-34.0); Mean Corpuscular Hgb Conc 33.2 g/dL (32.0-36.0); Mean Corpuscular Volume 96.7 fL (80.0-100.0); Mean Platelet Volume 12.2 fL (9.4-12.4); Platelet Count 174 K/uL (130-400); RDW Coefficient of Variation 12.6 % (11.5-14.5); RDW Standard Deviation 44.3 fL (36.4-46.3); Red Blood Count 3.33 M/uL (4.20-5.40); White Blood Count 6.84 K/ul (4.8-10.8)
[2024-07-18 08:18] LABS: BUN Creatinine Ratio 17.9 (10-20); Calcium 8.5 mg/dl (8.6-10.3); Creatinine Clr Calc Pharmacy 28.5 ml/min; Magnesium 1.7 mg/dl (1.7-2.4); Potassium 4.8 mmol/L (3.5-5.1)
--- NOTE | 2024-07-18 08:31 | Hospitalist Progress Note ---
Date of Service July 18, 2024 Assessment & Plan (1) Trimalleolar fracture: Plan: Presented after ground level fall resulting in left trimalleolar fracture with displacement. Fracture reduced in the ER\, splinted Neurovascularly intact and pain is well controlled Pain control: tylenol, oxocodone prn Elevation LLE Antiemetics prn Bowel regimen: senna HS andrea, miralax prn. Adding colace BID Orthopedic surgery consulted -- initially scheduled for ORIF of left ankle on 07/14, however this surgery has been postponed to outpatient setting with foot and ankle specialist, Dr. Bright, to allow swelling to subside and get tighter diabetic control > Dr. Bright plans for external fixation of left ankle on 07/17 with definitive treatment after Per RCRI patient with 6% chance of sushil-operative MACE (1 point, pre-operative treatment with insulin) Nonweightbearing on left ankle PT/OT recommending rehab given NWB status and patient lives alone; accepted at [facility] - informed CM of scheduled surgery 07/17 07/17 NPO for ORIF this morning with Dr Bright, definitive treatment after given NWB planning for [facility] following surgery/pending bed. CM to follow IVF added while NPO, lisinopril/spironolactone on hold until post-op BP/labs assessed Labs pending from this morning Eliquis to resume post-op for DVT proph, monitor CBC 07/18 s/p External Fixation of Left Ankle with Application of Below the Knee Splint(Left) - Abebe Bright DO. EBL 10cc 1. Close reduction external fixation left ankle 2. Physician directed fluoroscopy less than 1 hour 3. Application of below-knee splint WBC wnl Hgb 12--> 10.7, acute blood loss anemia from surgery but also suspect dilutional aspect from IVF ordered while NPO BUN/Cr improved but still elevated 38/2.12. Lisinopril/spironolactone on hold for now. BP stable 124/68. Will monitor off for another 24 hours. (2) Hypertension: Plan: Chronic, stable w/ pain control Continues on metoprolol 50mg daily Home lisinopril 40mg, spironolactone placed on HOLD for now -- BP 113/69 and will monitor to resume post op pending BP/renal function (3) Diabetes type 1, uncontrolled: Plan: Very poorly controlled. SmqE1M=46.5% - Patient on Lantus 20u BID. She has seen Diabetes clinic in the past - [facility] - Pharmacy glycemic management consulted Plan Chronic stable problems: Hypothyroidism: Continue Synthroid Dyslipidemia: Continue atorvastatin VTE PPx: SCDs, eliquis as above Dispo: NPO for ORIF today with Dr Bright, planning for [facility] when bed available, possible next 24-48hrs pending post-operative course. CM to follow. Admission and Anticipated Discharge Date Admission Date: July 13, 2024 Results & Data Results & Data Vital Signs (Past 12 Hours) Vital Signs Temp Pulse Pulse Resp BP BP Pulse Ox 07/18/24 07:49 36.7 C 70 18 124/68 94 07/18/24 07:19 36.7 C 69 18 111/69 96 07/18/24 03:00 36.6 C 88 18 129/70 95 07/17/24 23:04 36.6 C 72 18 123/78 94 07/17/24 22:18 O2 Del Method 07/18/24 07:49 Room Air 07/18/24 07:19 Room Air 07/18/24 03:00 Room Air 07/17/24 23:04 Room Air 07/17/24 22:18 Room Air PG Care Time/CCT Total # of Minutes Spent Total Time Spent with Patient: Total time spent is greater than 50% in coordination of care (as documented) at patient's floor/unit and/or counseling patient: Coding Diagnoses Trimalleolar fracture S82.853A Hypertension I10 Diabetes type 1, uncontrolled E10.65
--- NOTE | 2024-07-18 08:41 | Orthopedic Progress Note ---
Date of Service July 18, 2024 Assessment & Plan (1) Fall: (2) Closed trimalleolar fracture of ankle: (3) Personal history of diabetic foot ulcer: (4) Hypertension: (5) Diabetes type 1, uncontrolled: (6) Vitamin D deficiency: (7) Stage 3b chronic kidney disease: (8) Diabetic peripheral neuropathy associated with type 1 diabetes mellitus: Plan Patient doing well postoperative day #1 status post close reduction external fixator placement for her trimalleolar left ankle fracture dislocation. At the time of surgery yesterday, her ankle was noted to be dislocated and the soft tissues were not amenable for definitive surgical fixation and as such we proceeded with external fixator placement. She is okay for DVT prophylaxis from an orthopedic standpoint. She should be nonweightbearing on the left lower extremity. At this point, she is orthopedically stable for discharge. She will follow-up with me early next week for planning of definitive surgical management. Admission and Anticipated Discharge Date Admission Date: July 13, 2024 Subjective patient seen and examined this morning. no acute issues. denies significant pain Review of Systems Review of Systems: All systems reviewed & are unremarkable except as noted in HPI & below Physical Exam Physical Exam: external fixator and posterior slab splint in place. dressings c.d.i. diminished sensation in exposed toes at baseline per patient Results & Data Vital Signs (Past 12 Hours) Vital Signs Temp Pulse Pulse Resp BP BP Pulse Ox 07/18/24 07:49 36.7 C 70 18 124/68 94 07/18/24 07:19 36.7 C 69 18 111/69 96 07/18/24 03:00 36.6 C 88 18 129/70 95 07/17/24 23:04 36.6 C 72 18 123/78 94 07/17/24 22:18 O2 Del Method 07/18/24 07:49 Room Air 07/18/24 07:19 Room Air 07/18/24 03:00 Room Air 07/17/24 23:04 Room Air 07/17/24 22:18 Room Air (1) Fall Encounter type: initial encounter Qualified Code(s): W19.XXXA - Unspecified fall, initial encounter (2) Closed trimalleolar fracture of ankle Encounter type: initial encounter Laterality: left Qualified Code(s): S82.852A - Displaced trimalleolar fracture of left lower leg, initial encounter for closed fracture
--- NOTE | 2024-07-18 11:05 | Discharge Summary ---
Discharge Summary Date of Service July 18, 2024 Principal Dx & Hospital Course #1 = Principal Diagnosis (1) Trimalleolar fracture: Presented after ground level fall resulting in left trimalleolar fracture with displacement. Age-related osteoporosis with current pathological fracture, L trimalleolar ankle fracture Fracture reduced in the ER, splinted Pain control, elevation and bowel regimen provided Orthopedics consulted- initially scheduled for ORIF of left ankle on 07/14, however this surgery has been postponed to outpatient setting with foot and ankle specialist, Dr. Bright, to allow swelling to subside and get tighter diabetic control s/p External Fixation of Left Ankle with Application of Below the Knee Splint(Left) - Abebe Bright, on 07/18 EBL 10cc 1. Close reduction external fixation left ankle 2. Physician directed fluoroscopy less than 1 hour 3. Application of below-knee splint Neurovascularly intact and pain is well controlled with oxycodone/tylenol and +BS and passing increased gas but no BM however no abdominal pain and recommended continuing bowel regimen w/ softener/laxative and enema/suppository if needed. To alert if not passing gas/abdominal pain develops. Did NOT have shepherd. UA not obtained but denied symptoms of burning/frequency but did note darkened color prior to admission and lightened up prior to discharge with improvement in renal function to 2.12 from 2.33 with holding her spironolactone/lisinopril and BPs remained STABLE OFF SUCH Recommend holding off lisinopril additoinal day but could resume 12/12 if needed but would wait additional 48 hrs to resume spironolactone as appeared slightly dehydration and encouraged to push oral fluids. DVT proph: low dose eliquis 2.5mg BID, no significant bleeding noted and hgb stable on repeat following surgery w/ aspect of dilution given IVF while NPO Outpt f/u with orthopedics this upcoming week for definitive surgery planned. NWB on the left and [facility] planned for rehab at [facility]. (2) Hypertension: Chronic, stable w/ pain control and actually GREAT control on metoprolol ALONE Placed lisinopril/spironolactone on hold given elevated Cr and dehydration with improvement from 2.3--> 2.12 and rec to continue metoprolol at dischage and slowly resume lisinopril as needed followed by spironolactone but cautious use w/ diuretics to prevent dehydration. (3) Diabetes type 1, uncontrolled: Very poorly controlled. LexA0A=52.5% Type I diabetes mellitus with hyperglycemia and tank terminal gauger use of insulin She has seen Diabetes clinic in the past - [facility] - Pharmacy glycemic management consulted while inpatient Home regimen resumed and she is to leaf size picker her gypsy/get better control outpatient. Outpt f/u PCP after [facility]. Can adjust if needed but has been quite stable on 20 of glargine HS with sliding scale (takes 20 glargine HS at home with 20 aspart in morning and probably benefit from mealtime administration if patient accecptable in follow up for tighter control without dropping low) (4) CKD stage 4 due to type 2 diabetes mellitus: stage IV CKD, elevation on admission suspected 2nd to fall/fracture but also dehydration with ongoing spironolactone for HTN as well as lisinopril IVF provided, meds adjusted Recs avoidance of NSAIDs, oxycodone as above for pain. Recommended to hold off on lisinopril unless needed for BP and would rec to check repeat BMP to ensure renal function improving Denied urinary sx/fever/frequency but no UA obtained (should be considered in f/u to see about proteinuria) K ~4.8-5 on admission and would recommend possible switch from spironolactone to HCTZ if needing diuretic component to prevent hyperkalemia w/ use of both SOHAN/spironolactone for HTN per patient Consider referral to nephrology in follow up Would obtain UA if any urinary sx develop Plan Chronic stable problems: Hypothyroidism: Continued Synthroid. Prior elevation prior monthOctober to 7.7 but normal T4 -->recommend follow up with PCP about repeating in next month WITH T3 to see if adjustment needed Dyslipidemia: Continued atorvastatin VTE PPx: SCDs, Eliquis as above Dispo: dc to [facility] for rehab Notes For Next Care Provider Monitor for any UTI symptoms. No UA on admission and renal function improving with hydration/holding her spironolactone and lisinopril but did have UTI in May. Did have dark urine reported on admission which improved prior to dc. To continue to hold lisinopril/spironolactone for another 24 hrs and rec repeating labs/if stable and improved can resume for HTN but is STABLE off such. Continues on eliquis 2.5mg BID for DVT proph, hgb stable/no bleeding reported. Recommend repeating thyroid function testing with T3 in follow up/adjustment in synthroid if not done recently given elevation in January/May Medication Changes From Visit Eliquis 2.5mg PO BID for DVT proph Oxycodone 5mg prn pain Bowel regimen: colace, senna daily. SUppository w/ dulcolax as needed. Admission HPI Per Admitting Provider Jina Pinon is a pleasant 68yo female with history of HTN, HLP, DM presenting after ground level fall resulting in left ankle fracture. Patient works at [email or web address]. She was at work today when she stepped back and lost her balance. She thinks her body twisted and her ankle remained in place and she fell to the ground. No head trauma or loss on consciousness. 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 No additional complaints such as chest pain, palpitations, SOB. Patient found to have acute left trimalleolar fracture with complete lateral tibiotalar dislocation. Successful reduction performed in the ER. Patient with no additional complaints at this time. Pain is well controlled ER Course: Propofol 100mg Fentanyl 100mcg + 50mcg Admission Exam Per Admitting Provider General: patient resting comfortably, NAD, non-toxic in appearance, AA&O x 4 Skin: warm, dry, intact, no rashes or lesions HEENT: NC/AT, PERRL, EOMI, anicteric sclera, conjunctiva without injection, external ear normal to inspection and nontender, nares patent, moist mucus membranes, dentition intact, no oropharyngeal lesions, neck supple, trachea midline, no LAD, no thyromegaly, no JVD Heart: +S1/S2, regular, no m/r/g Lungs: equal air entry bilaterally, no rales/rhonchi/wheezes Abd: +BS, soft, NT/ND, no masses/organomegaly/ascites Ext: LLE with wrapping in place, sensation intact Neuro: nonfocal, patient AA&O x 4, speech intact, no facial droop, moving all extremities on command with equal strength 5/5 Discharge Exam General: 68yo female sitting up in bed, NAD, reading a book, NAD HEENT: head atraumatic, normocephalic, mm slightly dry but improved from yesterday, trachea midline Resp; Even/unlabored, no w/c/r, on room air 93% CV: RRR, no significant m/r/g, no pitting edema, cap refill wnl GI: +BS throughout, slight distension but no overt tenderness, no guarding/rebound (does have R sided ovarian mass/cyst) : no shepherd MSK/Neuro: LLE with external fixator in place, toes mobile, sensation intact to pressure (baseline diminished to light touch with her diabetes), cap refill wnl Psych: AOx3, cooperative with exam Discharge Plan Discharge Items Patient Disposition: Transfer Inpatient Rehab Fac Reason For Visit: FALL, ANKLE FRACTRURE Discharge Diagnosis: Fall, Left ankle fracture Goals: You have been hospitalized for an urgent problem which required surgery. During your stay at [facility], we have made an effort to correct the problem that brought you to the hospital while keeping you as comfortable as possible. Surgery and medications were used to bring your condition under control and your discharge instructions will include directions for any medi cations you should take after leaving the hospital. Please make sure to follow the advice of your surgeon regarding follow up with the surgeon and with your primary care provider. Activity: As commented below Activity Comment: non weight bearing LEFT LOWER EXTREMITY Weightbearing: Left non-weightbearing Non-emergency contact: Primary Care Provider and Surgeon Call non-emergency contact if: you have any medication questions, your symptoms worsen, your pain is not controlled, your pain is worsening, your pain is unusual for you and you have a fever Follow-up/Referrals: Taylor Alfaro PA-C [Primary Care Provider] - Abebe Bright DO [Surgeon] - (1 week) Diet: Carb Consistent or DM2 and Heart Healthy Addtl Attending Provider Instructions: You have been hospitalized after a fall and found to have ankle fracture. Orthopedics was consulted and you underwent surgery for alignment but will need follow up in the next week to see about definitive correction once decreased swelling. You are to continue eliquis 2.5mg twice daily to prevent blood clots. Montior for any bleeding while on this as discussed and alert provider if occurs. Oxycodone has been sent for pain control. Please continue bowel regimen to prevent constipation with colace/senna and can escalate to enema if needed if not moving bowels in the next 24-48 hours but have had increased gas/bowel sounds. Please continue to hold spironolactone/lisinopril until tomorrow and continue oral hydration. If repeat labs are with improved renal function in next 24-48 hours with stable blood pressure can resume. Please follow up with PCP in the next 7-10 days. Rehab at [facility] planned and being arranged at discharge. Please return to ER with any increased/uncontrolled pain, fever/chills, bleeding, chest pain, shortness of breath, or for any other symptoms concerning for you. Take care! Addtl Telephone Betting Clerk Provider Instructions: ORTHOPEDIC INSTRUCTIONS Activity Recommendations: Nonweightbearing on the left ankle Medications: Eliquis 2.5 mg twice a day for DVT prophylaxis Dressing Care: Keep the splint clean and dry Diet: You may resume your previous diet. Follow-Up Visit: Follow-up with Dr. Abebe Bright with [facility]. I discussed the case with Dr. Bright and he would like to see you in his office later this week. Pending Studies at Discharge: No Stand-Alone Forms: My [facility] Skilled Items Patient informed of condition?: Yes DNR: No Discharge Level of Care: Acute rehab Communicable Disease: No Discharge Prognosis: Stable Lines: None Urinary Catheter: No Medications and DC Order Prescriptions: New acetaminophen 325 mg Tablet 650 mg PO Q4H PRNQty: 0 0RF oxycodone 5 mg Tablet 5 mg PO Q6H PRNQty: 0 0RF docusate sodium 100 mg Capsule 100 mg PO BID Qty: 0 0RF polyethylene glycol 3350 [Miralax] 17 gram Powder In Packet 17 g PO DAILY PRN (Reason: constipation) Qty: 0 0RF sennosides [Senokot] 8.6 mg Tablet 17.2 mg PO HS Qty: 0 0RF Eliquis 2.5 mg Tablet 2.5 mg PO BID 28 Days Qty: 0 0RF Continued multivitamin tablet 1 tab PO DAILY insulin aspart U-100 [Novolog FlexPen U-100 Insulin] 100 unit/mL (3 mL) insulin pen 20 unit subcut DAILY atorvastatin 80 mg tablet 80 mg PO HS calcium carbonate [Calcium 600] 600 mg calcium (1,500 mg) tablet 600 mg PO DAILY duloxetine 30 mg capsule,delayed release(/EC) 30 mg PO BID insulin glargine [Lantus Solostar U-100 Insulin] 100 unit/mL (3 mL) insulin pen 20 unit subcut QPM Rx Instructions: Reports taking 20 units PM daily. potassium citrate 99 mg capsule 99 mg PO DAILY levothyroxine [Euthyrox] 150 mcg tablet 150 mcg PO DAILY Qty: 90 1RF cholecalciferol (vitamin D3) [Vitamin D3] 25 mcg (1,000 unit) tablet 4,000 unit PO DAILY cyanocobalamin (vitamin B-12) 1,000 mcg capsule 2,000 mcg PO DAILY metoprolol succinate [Toprol XL] 50 mg tablet extended release 24 hr 50 mg PO HS Held lisinopril 40 mg tablet 40 mg PO DAILY Hold Instructions: hold until 07/19-07/20 unless needed for BP unless renal function improved spironolactone 100 mg tablet 100 mg PO DAILY Hold Instructions: Resume on 07/20/24. No Action (DME) Accu-Chek Guide test strips Strip See Rx Instructions .Route Rx Instructions: As directed (DME) Dexcom G7 Property And Equipment Clerk Misc See Rx Instructions .Route Qty: 1 0RF Rx Instructions: As directed (DME) Dexcom G7 Sensor Device See Rx Instructions .Route Qty: 3 11RF Rx Instructions: Change every 10 days (DME) lancets [Accu-Chek Softclix Lancets] Misc See Rx Instructions .ROUTE .MEDSUPPLY Qty: 100 Rx Instructions: As directed Discharge Orders: Discharge Order (Routine); Ordered 07/18/24 Ordered By: Elle Calloway/Other Patient Handouts: Managing Type 1 Diabetes Admission Data Admit Date/Time: 07/13/24 19:37 Attending Provider: Sanket Clifton Admit Provider: Lianna Washburn Primary Care Provider: Taylor Alfaro Other Providers: [facility]; [facility]; Vaibhav Aguillon; Lianna Washburn Other Interventions: Discharge Summary Assessment (RN) Last Done: 07/18/24 12:51 Hospital Stay Data Consultations 07/13/24 19:37 Consult Orthopedic Surgery Routine 07/13/24 19:48 ED Decision to Admit Stat Procedures Performed Operation Date: 07/17/24 12:45 Actual Procedures p External Fixation of Left Ankle with Application of Below the Knee Splint(Left) - Abebe Bright DO Diagnostic Imagining Performed Ankle X-Ray 07/13/24 16:53 EXAM: Radiographs of the Left Ankle 2 Views INDICATION: Dislocation. Trauma. TECHNIQUE: Frontal and lateral views of the left ankle. Images obtained at 5:17 PM COMPARISON: No relevant prior studies available. FINDINGS: Limitations: None. Bones/joints: There is acute trimalleolar fracture with lateral tibiotalar dislocation. The talar shaft appears rotated. The medial and lateral malleolar are normally located with respect to the talus. There is mild spurring of the dorsal midfoot. There is a small plantar calcaneal spur. Soft tissues: Periarticular soft tissue swelling noted. I cannot exclude open nature of the fracture as there may be some gas associated with the distal tibia. IMPRESSION: Acute left trimalleolar fracture with complete lateral tibiotalar dislocation. ACT 112: Negative or not required by law. Electronically signed by Estrellita Gallardo 07-13-2024 5:38 PM Ankle X-Ray 07/13/24 18:32 EXAM: Radiographs of the Left Ankle 2 Views INDICATION: Post reduction. TECHNIQUE: Frontal and lateral views of the left ankle. Images obtained at 8:34 PM. COMPARISON: Prereduction images approximately 90 minutes earlier FINDINGS: Limitations: None. Bones/joints: Trimalleolar fracture again noted. Anterolateral talar dislocation remains with resolved distal tibial rotation. There is stable impaction of the fibular fracture with the lateral malleolar fragment normally located to the talus. There may be slight medial mortise widening. Soft tissues: Plaster material obscures underlying bony detail. No other foreign body noted.See above. IMPRESSION: Trimalleolar fracture with resolved tibial rotation. There is persistent but slightly decreased degree of anterolateral tibiotalar dislocation. ACT 112: Negative or not required by law. Electronically signed by Estrellita Gallardo 07-13-2024 6:58 PM Ankle X-Ray 07/13/24 18:58 Exam(s): XR LEFT ANKLE, 2 views EXAM: XR Left Ankle, 2 Views CLINICAL HISTORY: Reason for exam: post reduction. TECHNIQUE: Frontal and lateral views of the left ankle. COMPARISON: 07/13/2024 at 6:33 PM IMPRESSION: Somewhat improved alignment. Persistent incongruity at the mortise. Splint material obscures fine osseous detail. Electronically signed by: Irineo Glaser MD 07/13/24 19:[address] 07/14/24 21:26 Exam(s): CT LEFT ANKLE Without Contrast EXAM: CT Left Lower Extremity Without Intravenous Contrast, Ankle CLINICAL HISTORY: Reason for exam: L ankle fracture. TECHNIQUE: Axial computed tomography images of the left ankle without intravenous contrast. Automated exposure control was utilized for the study. A dose lowering technique was utilized adhering to the principles of ALARA. COMPARISON: No relevant prior studies available. FINDINGS: Bones/joints: There is posterior and lateral subluxation of the talus. There is a mildly comminuted and displaced fracture of the distal fibula. There is lateral displacement of the fractured medial malleolus. There is generalized decreased bony mineralization. There are degenerative subchondral cystic change is noted in the cuneiforms and proximal second third and fourth metatarsals. Soft tissues: There is moderate ankle soft tissue edema. IMPRESSION: 1. There is posterior and lateral subluxation of the talus. 2. There is a mildly comminuted and displaced fracture of the distal fibula. 3. There is lateral displacement of the fractured medial malleolus. Electronically signed by: Bernardino Onofre MD 07/15/24 00:16 AM Ankle X-Ray 07/17/24 12:45 FL ankle LT min 3V RTN CLINICAL HISTORY: LT ANKLE ORIF COMPARISON STUDY: Ankle radiographs 07/13/2024 FLUOROSCOPY TIME: 50 seconds FLUOROSCOPY IMAGES: 9 EXPOSURE DOSE: 1.0686 mGy FINDINGS: Acute ankle fractures are redemonstrated. Surgical sponges project over the foot and ankle. External fixation hardware noted with partially imaged cannulated screws traversing the tibia and calcaneus. IMPRESSION: Fluoroscopic assistance as above. ACT 112: Negative or not required by law. Electronically signed by: Nick Dean M.D. 07/17/2024 2:[address] 07/17/24 14:56 EXAMINATION: CT ankle left without con CLINICAL HISTORY: History of fracture, external fixator in place, preop planning [place]ORS: [place] [address] 24 TECHNIQUE: Contiguous axial images were obtained through the left ankle without the use of intravenous contrast. Sagittal and coronal reformations are supplied. FINDINGS: Moderate to advanced osseous demineralization noted. External fixator in place creating beam hardening artifact. A trimalleolar fracture is present with mild widening of the fibula-talus joint/ankle mortise. The medial malleolus fracture is predominantly oblique with intra-articular extension and small bony fragment present superior and medial to the medial malleolar fragment. A mildly comminuted distal fibula fracture is present with intra-articular extension and mild widening of the mortise at this level. Approximately 5 mm of lateral displacement of the distal fracture fragment with respect to the proximal is present. An oblique to mildly comminuted posterior malleolus fracture present with intra-articular extension and 4.7 mm of superior/caudal displacement of the fracture fragment. No significant periosteal reaction is present. Talar dome is unremarkable. Mild diffuse soft tissue swelling noted throughout the ankle. No significant ankle joint effusion. Subtalar joint is patent. No calcaneal fracture. Moderate degenerative change throughout the visualized midfoot. No radiopaque foreign body or subcutaneous gas. IMPRESSION: A trimalleolar fracture is discussed above with external fixation. Electronically signed by Sandy Hernandez 07-17-2024 4:36 PM Discharge Instructions Given to Patient (Per Discharging Provider) You have been hospitalized after a fall and found to have ankle fracture. Orthopedics was consulted and you underwent surgery for alignment but will need follow up in the next week to see about definitive correction once decreased swelling. You are to continue eliquis 2.5mg twice daily to prevent blood clots. Montior for any bleeding while on this as discussed and alert provider if occurs. Oxycodone has been sent for pain control. Please continue bowel regimen to prevent constipation with colace/senna and can escalate to enema if needed if not moving bowels in the next 24-48 hours but have had increased gas/bowel sounds. Please continue to hold spironolactone/lisinopril until tomorrow and continue oral hydration. If repeat labs are with improved renal function in next 24-48 hours with stable blood pressure can resume. Please follow up with PCP in the next 7-10 days. Rehab at [facility] planned and being arranged at discharge. Please return to ER with any increased/uncontrolled pain, fever/chills, bleeding, chest pain, shortness of breath, or for any other symptoms concerning for you. Take care! Supervising Physician Co-Signing Physician Notes The patient was not seen by me. The chart was reviewed. Case discussed with RIK Fleming. Agree with assessment and plan Total Time Total Time Spent Total Time Spent (In Minutes): 45 Coding Level of Care Code 67789 INP/OBS DISCH >30 MIN Diagnoses Trimalleolar fracture S82.853A Hypertension I10 Diabetes type 1, uncontrolled E10.65 CKD stage 4 due to type 2 diabetes mellitus E11.22; N18.4
[2024-07-18 12:18] VITALS: BP 112/64; PULSE 72; O2SAT 93
[2024-07-18] MEDS: oxyCODONE HCL IR 5 MG TAB (IMMEDIATE RELEASE) PO STA (12:24)
--- NOTE | 2024-07-18 14:58 | Operative Report ---
Post Operative Report Pre & Post Diagnosis Operation Date: 07/17/24 12:45 Pre-Op Diagnosis: Closed [place] Left Ankle Fracture Post-Op Diagnosis: Closed [place] Left Ankle Fracture I identified the patient and participated in the time-out.: Yes Procedure Operation Date: 07/17/24 12:45 Actual Procedures p External Fixation of Left Ankle with Application of Below the Knee Splint(Left) - Abebe Birght DO 1. Closed reduction and external fixation left ankle fracture dislocation 2. Physician directed fluoroscopy less than 1 hour 3. Application below-knee splint Surgeon Abebe Bright DO Igniter Capper none Estimated Blood Loss 10 Findings Consistent with Post-Op Diagnosis Fluids see anesthesia record Specimens none Anesthesia Type General Complications none Disposition Disposition: Recovery Room Indications This is a 68-year-old female who is quite medically complex who fell while at work at [employer] and sustained a trimalleolar ankle fracture/dislocation. Multiple attempts at reduction were made, however the patient does not appear to have maintained her ankle mortise based on most recent CT scan, so after having a chance to review the imaging, I do believe that the patient needs a better reduction if she hopes to allow her soft tissues to be appropriate enough for definitive fixation. Considering the patient is already 4 days from the date of injury, and she has already failed multiple close reduction attempts when using a splint to hold the reduction, at this point, I do believe that placement of an external fixator is warranted. I did discuss with the patient that this would be the first stage and a two- stage procedure. The final stage of this procedure and what exactly it would entail is still up for discussion due to the patient's medical history, but regardless of whether we perform open reduction internal fixation or acutely fuse her hindfoot, I do think that in order to take pressure off the soft tissues, she needs an external fixator placement now. Patient was eating lunch upon my evaluation yesterday, and as such was not appropriate to proceed to the OR, so we have scheduled this to take place today. I had a long discussion with the patient regarding the nature of this injury. We discussed in great detail the pathoanatomy, pathophysiology, treatment options. Given the significant amount of displacement as described above, my recommendation is for operative management. We discussed the risks of surgery in great detail with the patient. She understands the risks include but are not limited to loss of life/limb, DVT, incomplete relief of pain, need for additional surgery, hardware complication, hardware failure, pin site irritation, iatrogenic injury to bone/nerve/tendon/vessel. Following placement of the external fixator, we will discuss what the long-term solution may be. Given the fact that her CT scan was done with her ankle malreduced, I do think this may need to be repeated after placement of the external fixator, as well. The question becomes if we should perform open reduction and internal fixation versus acute tibiotalocalcaneal arthrodesis. In most healthy patients, open reduction internal fixation of the fractures is appropriate, but this patient is at a significant risk of infection, and incomplete bony healing due to her poorly controlled diabetes. Because of this, it may make more sense to proceed with attempted tibiotalocalcaneal arthrodesis. I will discuss this in great detail with the patient after her external fixator is placed. Surgical plan for 07/17/24: LEFT ankle closed reduction and external fixator placement Description of Procedure After informed consent was obtained, the patient was correctly identified in the preoperative holding suite, the operative site was marked with the surgeon's initials, the date of the surgery, and the word yes. The patient was then taken to the operative suite. The department of anesthesia administered general anesthesia. The patient was transferred from the [facility] to the operative table. All bony prominences were well-padded. Briefing and timeout was performed. All implants were available and sterile at the time of procedure start. BRIEFING AND DEBRIEFING: Pre and post operative briefing and debriefing was performed. Introductions were made, goals of the procedure were discussed, questions and concerns were addressed. The operative site markings were identified and appropriate. A time [id number] was performed, the patient's correct identity was confirmed and the correct operative sites were identified. The patients pre-operative antibiotic dosing and administration was confirmed along with other SCIP measures. The team was polled at the completion of the surgery and all team members were in agreement that the procedure was without complication, the counts are correct, the wound class was identified and suggestions for improvement were shared. After the patient was transferred to the operative table with all of her bony prominences well-padded, we removed the patient's left lower extremity splint. Her ankle was clearly dislocated at this time. We examined the skin and noted fracture blisters medially as well as significant ecchymosis. She did have significant soft tissue swelling noted laterally as well. No open wounds were appreciated. We then prepped and draped the leg in standard sterile fashion using ChloraPrep. We began by locating an appropriate location on the tibial shaft such that we were out of the area of planned surgical implants in the future. We began by using a 3.5 mm drill to drill bicortically through the tibia. Our first attempt at this was noted to be unicortical, so we moved distally and then drilled bicortically and placed a 5 mm blunt tipped Schanz pin through the tibia. We then drilled through the guide bicortically proximal to this and placed a 5 mm Schanz pin more proximally. These 2 Schanz pins were connected with a large 6- hole clamp with 2 outriggers attached to the clamp. We then obtained a perfect lateral x-ray of the ankle and placed a trance calcaneal pin from lateral to medial being sure to stay distal and posterior to avoid the sural nerve. This was advanced by hand through the calcaneus and out the medial side. Pin to bar clamps were placed on the calcaneal pin and bar to bar clamps were placed on the out rigors proximally. We attached to appropriately sized bars to construct our delta frame. Traction and external pressures and reduction maneuvers were placed on the ankle until appropriate reduction of the ankle was obtained. The clamps were then tightened and final fluoroscopic images demonstrated appropriate reduction of the ankle. We then covered the pin sites and Betadine soaked Adaptic and covered her fracture blisters with Betadine soaked Adaptic followed by 4 x 4's, sterile Webril, [place] cotton and placed a well-padded posterior slab splint to keep her ankle at 90 degrees dorsiflexion. The patient tolerated this procedure well and was transferred to the PACU in stable condition. Prior to transportation to PACU, all counts were correct and a briefing was performed at the end of the case. Physician-directed fluoroscopy for less than one hour was performed by myself to verify fracture alignment and the safe placement of all fixation. The final images saved to PACs showed views demonstrating satisfactory alignment of the fracture and safe and stable fixation. Implant verification was performed by the senior surgeon by reading and confirming the implant information on the packaging with the team before the sterile implants were opened. I was present for the procedure. Plan: Weight bearing status: Nonweightbearing Wound care: Keep pin sites clean and dry Range of motion: None at this time VTE Prophylaxis: Okay from orthopedic standpoint Antibiotics: Perioperative Ancef Pain Control: Multimodal avoiding anti-inflammatories Vitamin D Replacement: Labs pending Discharge Plan: Orthopedically stable for discharge Follow Up: With myself next week for skin check and planning definitive management I attest to the content of the Intraoperative Record and any orders documented therein. Any exceptions are noted below.
== END 2024-07-18 16:09 | DRG 543 ==
LOC: ED 16:15 → SUATTDRO 19:37 → 3W 19:37 → INTOOBSV 19:37 → 3W 20:10

== ENCOUNTER 2024-08-02 10:50 | Inpatient (IN) ==
--- NOTE | 2024-07-31 09:00 | Anesthesiology Consultation ---
Date of Service July 31, 2024 Assessment & Plan (1) Encounter for pre-operative examination: Plan - check BSG am DOS. - discharge summary 07/13/24 [facility]: "...ground level fall resulting in left trimalleolar fracture with displacement. Age-related osteoporosis with current pathological fracture, L trimalleolar ankle fracture. Fracture reduced in the ER, splinted...Orthopedics consulted- initially scheduled for ORIF of left ankle on 07/14, however this surgery has been postponed to outpatient setting with foot and ankle specialist, Dr. Bright, to allow swelling to subside and get tighter diabetic control...A1c 11.5%...CKD stage 4..." Closed reduction 07/17/24: LMA#4. - Per clerical coordinator on 07/31/24: No known infectious disease contacts, current infectious disease symptoms in past 10 days or COVID positive test result in the past 30 days. COVID test ordered for DOS. Chart Review Chart Review: Acceptable Risk for Surgery and Patient NOT seen in Pre Admission Testing Consults Requested none History Surgery Operation Date: 08/02/24 12:45 Proposed Procedures p Left Ankle Open Reduction Versus Closed Reduction and Internal Fixation with Adjustment of External Fixator - Abebe Bright DO Height/Weight Height: 5 ft 6 in Weight: 88 kg Allergies Allergy/AdvReac Type Severity Reaction Status Date / Time pseudoephedrine Allergy Intermediate swelling Verified 08/02/24 11:18 Medications Home Medications Medication Instructions Recorded Confirmed Last Taken lisinopril 40 mg tablet 40 mg PO UD 06/06/19 08/02/24 07/13/24 09:00 atorvastatin 80 mg tablet 80 mg PO HS 06/09/20 08/02/24 08/01/24 21:00 metoprolol succinate 50 mg 50 mg PO HS 03/02/21 08/02/24 08/01/24 21:00 tablet,extended release 24 hr (Toprol XL) blood sugar diagnostic (Accu-Chek 04/25/23 06/25/24 Unknown Guide test strips) blood-glucose meter,continuous #1 ea 05/09/23 06/25/24 Unknown (Dexcom G7 Flyer Repairer) blood-glucose sensor (Dexcom G7 #3 ea 05/09/23 06/25/24 Unknown Sensor device) lancets (Accu-Chek Softclix #100 ea 09/05/23 06/25/24 Unknown Lancets) duloxetine 30 mg capsule,delayed 30 mg PO BID 06/18/24 08/02/24 08/01/24 21:00 release insulin glargine 100 unit/mL (3 20 unit subcut QPM 06/18/24 08/02/24 08/01/24 20:00 mL) subcutaneous pen (Lantus Solostar U-100 Insulin) spironolactone 100 mg tablet 100 mg PO UD 06/18/24 08/02/24 07/13/24 09:00 apixaban 2.5 mg tablet (Eliquis) 2.5 mg PO BID 4 weeks #0 tabs 07/18/24 08/02/24 08/01/24 21:00 docusate sodium 100 mg capsule 100 mg PO BID #0 caps 07/18/24 08/02/24 Unknown oxycodone 5 mg tablet 5 mg PO Q6H PRN #0 tabs 07/18/24 08/02/24 08/01/24 21:00 polyethylene glycol 3350 17 gram 17 g PO DAILY PRN constipation #0 07/18/24 08/02/24 Unknown oral powder packet (Miralax) ea sennosides 8.6 mg tablet (Senokot) 17.2 mg (2 x 8.6 mg) PO HS #0 tabs 07/18/24 08/02/24 Unknown acetaminophen 325 mg tablet 650 mg PO Q4H PRN Pain 07/31/24 08/02/24 08/01/24 12:00 bisacodyl 10 mg rectal suppository 10 mg NM DAILY PRN Constipation 07/31/24 08/02/24 Unknown insulin aspart U-100 100 unit/mL 1 sliding scale dose subcut 07/31/24 08/02/24 08/01/24 18:00 (3 mL) subcutaneous pen (Novolog USEASDIRECTD unsure of FlexPen U-100 Insulin aspart) amount levothyroxine 150 mcg tablet 150 mcg PO QAM 07/31/24 08/02/24 08/01/24 08:00 (Euthyrox) magnesium hydroxide 800 mg/5 mL 800 mg PO DAILY PRN constipatino 07/31/24 08/02/24 Unknown oral suspension naloxone 4 mg/actuation nasal spray 4 mg intranasal DAILY PRN opiod 07/31/24 08/02/24 Unknown overdose ondansetron 4 mg disintegrating 4 mg PO Q6H PRN Nausea 07/31/24 08/02/24 Unknown tablet sodium phosphates 19 gram-7 118 ml NM DAILY PRN Constipation 07/31/24 08/02/24 Unknown gram/118 mL enema (Fleet Enema) Active Medications Generic Name Dose Route Start Last Admin Trade Name Freq PRN Reason Stop Dose Admin Sodium Chloride 1,000 mls @ 15 mls/hr 08/02/24 06:00 08/02/24 11:16 Nss IV 08/03/24 05:59 0 mls/hr .Q24H ELODIA Infusion Past Medical History Medical History Hypothyroidism Hypertension Dyslipidemia Diabetic neuropathy Type 1 diabetes CKD (chronic kidney disease), stage IV Fall Postmenopausal Goiter Graves disease Overweight Osteoarthritis Past Family History Family History Sister Diabetes Grandmother (Paternal) Diabetes Father Stroke COPD (chronic obstructive pulmonary disease) Brother Hemochromatosis Past Surgical History Surgical History 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 History of colonoscopy History of cholecystectomy History of tooth extraction History of tonsillectomy History of cataract surgery RT/LEFT S/P cholecystectomy Social History Smoking Status: Former smoker Smoking cigarettes per day: 1-5 Do You Dip or Chew Tobacco: No Hx Alcohol Use: Yes Alcohol type: wine alcohol intake frequency: holidays/special occasions only Hx Substance Use: No substance use type: does not use Physical Exam Vital Signs Last Vital Signs Temp 37 C 08/02/24 11:33 Pulse 64 08/02/24 11:33 Resp 20 08/02/24 11:33 BP 157/88 H 08/02/24 11:33 Pulse Ox 94 08/02/24 11:33 O2 Del Method Room Air 08/02/24 11:33 Lab Results Anesthesia Preop Results Results Anesthesia Widget: WBC 6.84 K/ul (4.8-10.8) 07/18/24 Hgb 10.7 g/dl (12.0-16.0) L 07/18/24 Hct 32.2 % (37.0-47.0) L 07/18/24 Plt 174 K/uL (130-400) 07/18/24 Na 136 mmol/L (136-145) 07/18/24 K 4.8 mmol/L (3.5-5.1) 07/18/24 Cl 105 mmol/L (98-107) 07/18/24 CO2 23 mmol/L (21-32) 07/18/24 BUN 38 mg/dl (6-23) H 07/18/24 Creat 2.12 mg/dl (0.6-1.2) H 07/18/24 Glucose Level 95 mg/dl (70-99(Fasting)) 07/18/24 POC Glucose 86 mg/dl (70-99) 08/02/24 PT 10.1 Seconds (9.0-12.0) 07/14/24 INR 0.9 (0.9-1.1) 07/14/24 HA1c 11.5 % (4.5-5.6) H 07/13/24 SARS-CoV-2, RNA, NAAT NEGATIVE (NEGATIVE) 08/02/24 Testing Laboratory Results 08/02/24 11:19 POC Glucose 86 Electrocardiogram Date: 07/13/24 NSR, rate 69 bpm Left anterior fascicular block Nonspecific T wave abnormality lateral leads Chest X-Ray Date: 05/23/24 *1view* No acute cardiopulmonary findings. Echocardiogram Date: 03/02/21 EF 60-65% Normal LV wall motion Moderate cLVH Grade I diastolic dysfunction Mild mitral regurgitation Other Testing Abdomen pelvis CT 05/23/24 Complex right adnexal mass measuring 8.6 x 7.6 x 6.1 cm, raising concern for ovarian neoplasm. Consider follow-up evaluation with pelvic ultrasound. [facility]PERATOR r ecommended for further management. No free fluid. No evidence of carcinomatosis. Per 05/23/24 consultation notes and later discharge summary, patient was to follow-up with [facility] OPERATOR several weeks after discharge for further evaluation
--- NOTE | 2024-07-31 12:45 | PAT Medication Instructions ---
Medication Instructions Date of Service July 31, 2024 Home Medications Medication Instructions Recorded blood-glucose meter,continuous #1 ea 05/09/23 (Dexcom G7 Disassembler Product) blood-glucose sensor (Dexcom G7 #3 ea 05/09/23 Sensor device) apixaban 2.5 mg tablet (Eliquis) 2.5 mg PO BID 4 weeks #0 tabs 07/18/24 docusate sodium 100 mg capsule 100 mg PO BID #0 caps 07/18/24 oxycodone 5 mg tablet 5 mg PO Q6H PRN #0 tabs 07/18/24 polyethylene glycol 3350 17 gram 17 g PO DAILY PRN constipation #0 07/18/24 oral powder packet (Miralax) ea sennosides 8.6 mg tablet (Senokot) 17.2 mg (2 x 8.6 mg) PO HS #0 tabs 07/18/24 lisinopril 40 mg tablet 40 mg PO UD atorvastatin 80 mg tablet 80 mg PO HS metoprolol succinate 50 mg tablet,extended release 24 hr (Toprol XL) 50 mg PO HS duloxetine 30 mg capsule,delayed release 30 mg PO BID insulin glargine 100 unit/mL (3 mL) subcutaneous pen (Lantus Solostar U-100 Insulin) 20 unit subcut QPM spironolactone 100 mg tablet 100 mg PO UD apixaban 2.5 mg tablet (Eliquis) 2.5 mg PO BID docusate sodium 100 mg capsule 100 mg PO BID oxycodone 5 mg tablet 5 mg PO Q6H PRN polyethylene glycol 3350 17 gram oral powder packet (Miralax) 17 g PO DAILY PRN sennosides 8.6 mg tablet (Senokot) 17.2 mg (2 x 8.6 mg) PO HS acetaminophen 325 mg tablet 650 mg PO Q4H PRN bisacodyl 10 mg rectal suppository 10 mg [place] DAILY PRN insulin aspart U-100 100 unit/mL (3 mL) subcutaneous pen (Novolog FlexPen U-100 Insulin aspart) 1 sliding scale dose subcut USEASDIRECTD levothyroxine 150 mcg tablet (Euthyrox) 150 mcg PO QAM magnesium hydroxide 800 mg/5 mL oral suspension 800 mg PO DAILY PRN naloxone 4 mg/actuation nasal spray 4 mg intranasal DAILY PRN ondansetron 4 mg disintegrating tablet 4 mg PO Q6H PRN sodium phosphates 19 gram-7 gram/118 mL enema (Fleet Enema) 118 ml VA DAILY PRN Continue as directed naloxone 4 mg/actuation nasal spray 4 mg intranasal DAILY PRN(if needed) ASK your prescriber and surgeon apixaban 2.5 mg tablet (Eliquis) 2.5 mg PO BID DO NOT take the morning of surgery lisinopril 40 mg tablet 40 mg PO UD spironolactone 100 mg tablet 100 mg PO UD docusate sodium 100 mg capsule 100 mg PO BID polyethylene glycol 3350 17 gram oral powder packet (Miralax) 17 g PO DAILY PRN bisacodyl 10 mg rectal suppository 10 mg VA DAILY PRN insulin aspart U-100 100 unit/mL (3 mL) subcutaneous pen (Novolog FlexPen U-100 Insulin aspart) 1 sliding scale dose subcut USEASDIRECTD magnesium hydroxide 800 mg/5 mL oral suspension 800 mg PO DAILY PRN sodium phosphates 19 gram-7 gram/118 mL enema (Fleet Enema) 118 ml VA DAILY PRN Take morning of surgery With a small sip of water, OTHERWISE NOTHING TO EAT OR DRINK AFTER MIDNIGHT: duloxetine 30 mg capsule,delayed release 30 mg PO BID oxycodone 5 mg tablet 5 mg PO Q6H PRN(if needed) acetaminophen 325 mg tablet 650 mg PO Q4H PRN(if needed) levothyroxine 150 mcg tablet (Euthyrox) 150 mcg PO QAM ondansetron 4 mg disintegrating tablet 4 mg PO Q6H PRN(if needed) Take evening before surgery atorvastatin 80 mg tablet 80 mg PO HS metoprolol succinate 50 mg tablet,extended release 24 hr (Toprol XL) 50 mg PO HS duloxetine 30 mg capsule,delayed release 30 mg PO BID insulin glargine 100 unit/mL (3 mL) subcutaneous pen (Lantus Solostar U-100 Insulin) 20 unit subcut QPM docusate sodium 100 mg capsule 100 mg PO BID oxycodone 5 mg tablet 5 mg PO Q6H PRN(if needed) sennosides 8.6 mg tablet (Senokot) 17.2 mg (2 x 8.6 mg) PO HS acetaminophen 325 mg tablet 650 mg PO Q4H PRN(if needed) insulin aspart U-100 100 unit/mL (3 mL) subcutaneous pen (Novolog FlexPen U-100 Insulin aspart) 1 sliding scale dose subcut USEASDIRECTD ondansetron 4 mg disintegrating tablet 4 mg PO Q6H PRN(if needed) Other Notes If you have any questions please call us at [phone] or [phone] or [phone] or [phone]
[~2024-08-02 10:50] MED LIST changes: -ASPI81TA28 PO; -ATOR-24 PO; +BUPIVACAINE 0.5 % 5 MG/1 ML MPF 30ML VIAL ONE; +BUPIVACAINE 0.5 % 5 MG/1 ML PF 10ML VIAL ONE; -CALC500C70 PO; -GABA-112 PO; -GABA-113 PO; -INSU1INJ33 INJ; -LISI-725 PO; -METH10TA6 PO; -MULT-506 PO; -VITA1TAB22 PO
[2024-08-02] MEDS: SODIUM CHLORIDE 0.9% 1000ML IV SCH ×2 (11:15→11:16)
--- NOTE | 2024-08-02 11:56 | History & Physical Bridge Note ---
Date of Service August 02, 2024 History & Physical Bridge Note I have examined the patient, reviewed the History & Physical and in the interval since the performance of the History & Physical I have noted the following changes of clinical significance: This is a 68-year-old female who fell a few weeks ago and sustained a left ankle fracture dislocation. I was consulted after she had been on the floor for a few days and at that time was noted to have a subluxed ankle mortise. She was placed into an external fixator and she has been followed up as an outpatient to plan for definitive fixation. The patient did have 2 ulcers at her original surgery, and in the interim, these have become eschars and are certainly concerning as far as wound healing is concerned. The patient is a diabetic with a severely elevated hemoglobin A1c and has Charcot arthropathy in her right foot with history of previous ulcers requiring amputation. The patient's left lower extremity is her "good leg" and because of this, I do believe that she requires stability more so than an external fixator can provide. The patient is at a very very high risk of wound healing complications, deep infection, further surgery to potentially include an amputation. I explained this in great detail to her. The surgical plan for today will include a minimally invasive approach to open reduction internal fixation as we will attempt to put as few new wounds on her as possible due to her demonstrated poor ability to heal skin wounds. Additional risks of the surgery include but are not limited to loss of life/limb, DVT, incomplete relief of pain, malunion, nonunion, hardware complication, hardware failure, infection. Patient understands all these risks and she expressed understanding to her elevated risk of nonhealing wound, deep infection, need for amputation in the future. She wishes to proceed with surgery.
[2024-08-02] MEDS ORDERED: ONDANSETRON INJ 2 MG/ML 2 ML VIAL ONE (12:38)
[2024-08-02] MEDS ORDERED: DEXAMETHASONE SOD INJ 4 MG/ML VIAL ONE (12:38)
[2024-08-02] MEDS ORDERED: MIDAZOLAM HCL 1 MG/ML 2ML VIAL ONE (12:38)
[2024-08-02] MEDS ORDERED: PROPOFOL IV EMULSION 10 MG/ML 20 ML VIAL IV ONE (12:38)
[2024-08-02] MEDS ORDERED: LIDOCAINE 2% 2 ML VIAL/AMP(20MG/ML) INFIL ONE (12:38)
[2024-08-02] MEDS ORDERED: fentaNYL citrate PF 100 MCG/2 ML VIAL ONE (12:39)
--- OUTSIDE RECORDS SUMMARY | 2024-08-02 12:40 | External Medical Summary ---
Author Name Unknown Address Unknown Organization [id number]:[facility] [address] [place] [address] Laboratory Report Ordering Provider Test Date Status DHARA ALEJO 07/26/2024 06:33:49 Final Observation Date Value Abnormality Reference (Units ) Status WBC, Total 07/26/2024 06:33:49 7.48 4.00-10.8 0 (K/uL) Final RBC 07/26/2024 06:33:49 3.34 3.85-5.15 (M/uL) Final Hemoglobin 07/26/2024 06:33:49 10.7 Below low normal 12 .0-15.3 (g/dL) Final HCT 07/26/2024 06:33:49 33.1 Below low normal 36. 0-45.2 (%) Final MCV 07/26/2024 06:33:49 99.1 81.5-97.5 (fL) Final MCH 07/26/2024 06:33:49 32.0 27.0-34.0 (pg) Final MCHC 07/26/2024 06:33:49 32.3 32.0-36.0 (g/dL) Final RDW 07/26/2024 06:33:49 12.8 11.5-15.5 (%) Final Platelets 07/26/2024 06:33:49 235 140-400 (K /uL) Final MPV 07/26/2024 06:33:49 11.7 6.6-11.1 ( fL) Final Performing Location [facility] [address] [place] [address]
--- OUTSIDE RECORDS SUMMARY | 2024-08-02 12:40 | External Medical Summary ---
Author Name Unknown Address Unknown Organization [id number]:[facility] [place] [address] Laboratory Report Ordering Provider Test Date Status DHARA ALEJO 07/26/2024 06:33:49 Final Observation Date Value Abnormality Reference (Units ) Status BUN 07/26/2024 06:33:49 49 Above high normal 6-20 (mg/dL) Final Creatinine 07/26/2024 06:33:49 1.9 Above high normal 0.5-1.0 (mg/dL) Final Glomerular filtration rate/1.73 sq M.predicted [Volume Rate/Area] in Serum, Plasma or Blood by Creatinine-based formula (CKD-EPI) 07/26/2024 06:33:49 28 Below low normal >=60 (mL/min) Final eGFR is calculated based on the CKD-EPI 2020 equation. Sodium 07/26/2024 06:33:49 141 135-146 (m mol/L) Final Potassium 07/26/2024 06:33:49 4.4 3.5-5.1 (m mol/L) Final Cl 07/26/2024 06:33:49 106 98-107 (mm ol/L) Final CO2 07/26/2024 06:33:49 23 22-32 (mmo l/L) Final Anion gap 07/26/2024 06:33:49 12 7-15 (mmol /L) Final Glucose 07/26/2024 06:33:49 101 70-120 (mg /dL) Final Calcium 07/26/2024 06:33:49 9.3 8.4-10.2 ( mg/dL) Final Performing Location [facility] [place] [address]
--- OUTSIDE RECORDS SUMMARY | 2024-08-02 12:40 | External Medical Summary ---
Author Name Unknown Address Unknown Organization [id number]:[facility] [address] [place] [address] Laboratory Report Ordering Provider Test Date Status DHARA ALEJO 07/20/2024 05:49:46 Final Observation Date Value Abnormality Reference (Units ) Status WBC, Total 07/20/2024 05:49:46 6.37 4.00-10.8 0 (K/uL) Final RBC 07/20/2024 05:49:46 3.28 3.85-5.15 (M/uL) Final Hemoglobin 07/20/2024 05:49:46 10.7 Below low normal 12 .0-15.3 (g/dL) Final HCT 07/20/2024 05:49:46 33.2 Below low normal 36. 0-45.2 (%) Final MCV 07/20/2024 05:49:46 101.2 81.5-97.5 (fL) Final MCH 07/20/2024 05:49:46 32.6 27.0-34.0 (pg) Final MCHC 07/20/2024 05:49:46 32.2 32.0-36.0 (g/dL) Final RDW 07/20/2024 05:49:46 12.8 11.5-15.5 (%) Final Platelets 07/20/2024 05:49:46 196 140-400 (K /uL) Final MPV 07/20/2024 05:49:46 12.4 6.6-11.1 ( fL) Final Performing Location [facility] [address] [place] [address]
--- OUTSIDE RECORDS SUMMARY | 2024-08-02 12:40 | External Medical Summary ---
Author Name Unknown Address Unknown Organization [id number]:[facility] [place] [address] Laboratory Report Ordering Provider Test Date Status DHARA ALEJO 08/02/2024 05:58:59 Final Observation Date Value Abnormality Reference (Units ) Status WBC, Total 08/02/2024 05:58:59 6.94 4.00-10.8 0 (K/uL) Final RBC 08/02/2024 05:58:59 3.41 3.85-5.15 (M/uL) Final Hemoglobin 08/02/2024 05:58:59 10.9 Below low normal 12 .0-15.3 (g/dL) Final HCT 08/02/2024 05:58:59 33.8 Below low normal 36. 0-45.2 (%) Final MCV 08/02/2024 05:58:59 99.1 81.5-97.5 (fL) Final MCH 08/02/2024 05:58:59 32.0 27.0-34.0 (pg) Final MCHC 08/02/2024 05:58:59 32.2 32.0-36.0 (g/dL) Final RDW 08/02/2024 05:58:59 13.0 11.5-15.5 (%) Final Platelets 08/02/2024 05:58:59 209 140-400 (K /uL) Final MPV 08/02/2024 05:58:59 11.9 6.6-11.1 ( fL) Final Performing Location [facility] [place] [address]
--- OUTSIDE RECORDS SUMMARY | 2024-08-02 12:40 | External Medical Summary ---
Author Name Unknown Address Unknown Organization [id number][facility] [place] [address] Laboratory Report Ordering Provider Test Date Status DHARA ALEJO 08/02/2024 05:58:59 Final Observation Date Value Abnormality Reference (Units ) Status BUN 08/02/2024 05:58:59 35 Above high normal 6-20 (mg/dL) Final Creatinine 08/02/2024 05:58:59 1.7 Above high normal 0.5-1.0 (mg/dL) Final Glomerular filtration rate/1.73 sq M.predicted [Volume Rate/Area] in Serum, Plasma or Blood by Creatinine-based formula (CKD-EPI) 08/02/2024 05:58:59 32 Below low normal >=60 (mL/min) Final eGFR is calculated based on the CKD-EPI 2020 equation. Sodium 08/02/2024 05:58:59 141 135-146 (m mol/L) Final Potassium 08/02/2024 05:58:59 3.9 3.5-5.1 (m mol/L) Final Cl 08/02/2024 05:58:59 104 98-107 (mm ol/L) Final CO2 08/02/2024 05:58:59 25 22-32 (mmo l/L) Final Anion gap 08/02/2024 05:58:59 12 7-15 (mmol /L) Final Glucose 08/02/2024 05:58:59 75 70-120 (mg /dL) Final Calcium 08/02/2024 05:58:59 9.0 8.4-10.2 ( mg/dL) Final Performing Location [facility] [place] [address]
--- OUTSIDE RECORDS SUMMARY | 2024-08-02 12:40 | External Medical Summary ---
Author Name Unknown Address Unknown Organization [id number][facility] [place] [address] Laboratory Report Ordering Provider Test Date Status DHARA ALEJO 07/19/2024 05:35:11 Final Observation Date Value Abnormality Reference (Units ) Status BUN 07/19/2024 05:35:11 38 Above high normal 6-20 (mg/dL) Final Creatinine 07/19/2024 05:35:11 2.2 Above high normal 0.5-1.0 (mg/dL) Final Glomerular filtration rate/1.73 sq M.predicted [Volume Rate/Area] in Serum, Plasma or Blood by Creatinine-based formula (CKD-EPI) 07/19/2024 05:35:11 24 Below low normal >=60 (mL/min) Final eGFR is calculated based on the CKD-EPI 2020 equation. Sodium 07/19/2024 05:35:11 138 135-146 (m mol/L) Final Potassium 07/19/2024 05:35:11 5.4 Above high normal 3. 5-5.1 (mmol/L) Final Cl 07/19/2024 05:35:11 103 98-107 (mm ol/L) Final CO2 07/19/2024 05:35:11 22 22-32 (mmo l/L) Final Anion gap 07/19/2024 05:35:11 13 7-15 (mmol /L) Final Glucose 07/19/2024 05:35:11 163 Above high normal 70 -120 (mg/dL) Final Calcium 07/19/2024 05:35:11 9.3 8.4-10.2 ( mg/dL) Final Performing Location [facility] [place] [address]
--- OUTSIDE RECORDS SUMMARY | 2024-08-02 12:40 | External Medical Summary ---
Author Name Unknown Address Unknown Organization [id number][facility] [place] [address] Laboratory Report Ordering Provider Test Date Status DHARA ALEJO 07/20/2024 05:49:46 Final Observation Date Value Abnormality Reference (Units ) Status BUN 07/20/2024 05:49:46 40 Above high normal 6-20 (mg/dL) Final Creatinine 07/20/2024 05:49:46 2.0 Above high normal 0.5-1.0 (mg/dL) Final Glomerular filtration rate/1.73 sq M.predicted [Volume Rate/Area] in Serum, Plasma or Blood by Creatinine-based formula (CKD-EPI) 07/20/2024 05:49:46 27 Below low normal >=60 (mL/min) Final eGFR is calculated based on the CKD-EPI 2020 equation. Sodium 07/20/2024 05:49:46 137 135-146 (m mol/L) Final Potassium 07/20/2024 05:49:46 5.1 3.5-5.1 (m mol/L) Final Cl 07/20/2024 05:49:46 104 98-107 (mm ol/L) Final CO2 07/20/2024 05:49:46 22 22-32 (mmo l/L) Final Anion gap 07/20/2024 05:49:46 11 7-15 (mmol /L) Final Glucose 07/20/2024 05:49:46 140 Above high normal 70 -120 (mg/dL) Final Calcium 07/20/2024 05:49:46 9.1 8.4-10.2 ( mg/dL) Final Performing Location [facility] [place] [address]
--- OUTSIDE RECORDS SUMMARY | 2024-08-02 12:40 | External Medical Summary ---
Author Name Unknown Address Unknown Organization K09:[facility] [address] [place] [address] Laboratory Report Ordering Provider Test Date Status DHARA ALEJO 07/19/2024 05:35:11 Final Observation Date Value Abnormality Reference (Units ) Status WBC, Total 07/19/2024 05:35:11 6.72 4.00-10.8 0 (K/uL) Final RBC 07/19/2024 05:35:11 3.39 3.85-5.15 (M/uL) Final Hemoglobin 07/19/2024 05:35:11 11.0 Below low normal 12 .0-15.3 (g/dL) Final HCT 07/19/2024 05:35:11 34.2 Below low normal 36. 0-45.2 (%) Final MCV 07/19/2024 05:35:11 100.9 81.5-97.5 (fL) Final MCH 07/19/2024 05:35:11 32.4 27.0-34.0 (pg) Final MCHC 07/19/2024 05:35:11 32.2 32.0-36.0 (g/dL) Final RDW 07/19/2024 05:35:11 13.0 11.5-15.5 (%) Final Platelets 07/19/2024 05:35:11 184 140-400 (K /uL) Final MPV 07/19/2024 05:35:11 12.5 6.6-11.1 ( fL) Final Performing Location [facility] [address] [place] [address]
--- NOTE | 2024-08-02 13:11 | Anesthesiology Consultation ---
Date of Service August 02, 2024 Assessment & Plan Chart Review Chart Review: Acceptable Risk for Surgery Consults Requested none History Surgery Operation Date: 08/02/24 12:45 Proposed Procedures p Left Ankle Open Reduction Versus Closed Reduction and Internal Fixation with Adjustment of External Fixator - Abebe Bright DO Height/Weight Height: 5 ft 6.5 in Weight: 83.915 kg Allergies Allergy/AdvReac Type Severity Reaction Status Date / Time pseudoephedrine Allergy Intermediate swelling Verified 08/02/24 11:18 Medications Home Medications Medication Instructions Recorded Confirmed Last Taken lisinopril 40 mg tablet 40 mg PO UD 06/06/19 08/02/24 07/13/24 09:00 atorvastatin 80 mg tablet 80 mg PO HS 06/09/20 08/02/24 08/01/24 21:00 metoprolol succinate 50 mg 50 mg PO HS 03/02/21 08/02/24 08/01/24 21:00 tablet,extended release 24 hr (Toprol XL) blood sugar diagnostic (Accu-Chek 04/25/23 06/25/24 Unknown Guide test strips) blood-glucose meter,continuous #1 ea 05/09/23 06/25/24 Unknown (Dexcom G7 Felt Cementer) blood-glucose sensor (Dexcom G7 #3 ea 05/09/23 06/25/24 Unknown Sensor device) lancets (Accu-Chek Softclix #100 ea 09/05/23 06/25/24 Unknown Lancets) duloxetine 30 mg capsule,delayed 30 mg PO BID 06/18/24 08/02/24 08/01/24 21:00 release insulin glargine 100 unit/mL (3 20 unit subcut QPM 06/18/24 08/02/24 08/01/24 20:00 mL) subcutaneous pen (Lantus Solostar U-100 Insulin) spironolactone 100 mg tablet 100 mg PO UD 06/18/24 08/02/24 07/13/24 09:00 apixaban 2.5 mg tablet (Eliquis) 2.5 mg PO BID 4 weeks #0 tabs 07/18/24 08/02/24 08/01/24 21:00 docusate sodium 100 mg capsule 100 mg PO BID #0 caps 07/18/24 08/02/24 Unknown oxycodone 5 mg tablet 5 mg PO Q6H PRN #0 tabs 07/18/24 08/02/24 08/01/24 21:00 polyethylene glycol 3350 17 gram 17 g PO DAILY PRN constipation #0 07/18/24 08/02/24 Unknown oral powder packet (Miralax) ea sennosides 8.6 mg tablet (Senokot) 17.2 mg (2 x 8.6 mg) PO HS #0 tabs 07/18/24 08/02/24 Unknown acetaminophen 325 mg tablet 650 mg PO Q4H PRN Pain 07/31/24 08/02/24 08/01/24 12:00 bisacodyl 10 mg rectal suppository 10 mg NV DAILY PRN Constipation 07/31/24 08/02/24 Unknown insulin aspart U-100 100 unit/mL 1 sliding scale dose subcut 07/31/24 08/02/24 08/01/24 18:00 (3 mL) subcutaneous pen (Novolog USEASDIRECTD unsure of FlexPen U-100 Insulin aspart) amount levothyroxine 150 mcg tablet 150 mcg PO QAM 07/31/24 08/02/24 08/01/24 08:00 (Euthyrox) magnesium hydroxide 800 mg/5 mL 800 mg PO DAILY PRN constipatino 07/31/24 08/02/24 Unknown oral suspension naloxone 4 mg/actuation nasal spray 4 mg intranasal DAILY PRN opiod 07/31/24 08/02/24 Unknown overdose ondansetron 4 mg disintegrating 4 mg PO Q6H PRN Nausea 07/31/24 08/02/24 Unknown tablet sodium phosphates 19 gram-7 118 ml NV DAILY PRN Constipation 07/31/24 08/02/24 Unknown gram/118 mL enema (Fleet Enema) Active Medications Generic Name Dose Route Start Last Admin Trade Name Freq PRN Reason Stop Dose Admin Sodium Chloride 1,000 mls @ 15 mls/hr 08/02/24 06:00 08/02/24 11:16 Nss IV 08/03/24 05:59 0 mls/hr .Q24H ELODIA Infusion NPO Date Last Intake of Fluids: 08/01/24 Time Last Intake of Fluids: 23:00 Date Last Intake of Solids: 08/01/24 Time Last Intake of Solids: 21:00 Past Medical History Medical History Hypothyroidism Hypertension Dyslipidemia Diabetic neuropathy Type 1 diabetes CKD (chronic kidney disease), stage IV Fall Postmenopausal Goiter Graves disease Overweight Osteoarthritis Past Family History Family History Sister Diabetes Grandmother (Paternal) Diabetes Father Stroke COPD (chronic obstructive pulmonary disease) Brother Hemochromatosis Past Surgical History Surgical History 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 History of colonoscopy History of cholecystectomy History of tooth extraction History of tonsillectomy History of cataract surgery RT/LEFT S/P cholecystectomy Social History Smoking Status: Former smoker Smoking cigarettes per day: 1-5 Do You Dip or Chew Tobacco: No Hx Alcohol Use: Yes Alcohol type: wine alcohol intake frequency: holidays/special occasions only Hx Substance Use: No substance use type: does not use Physical Exam Vital Signs Last Vital Signs Temp 37 C 08/02/24 11:33 Pulse 64 08/02/24 11:33 Resp 20 08/02/24 11:33 BP 157/88 H 08/02/24 11:33 Pulse Ox 94 08/02/24 11:33 O2 Del Method Room Air 08/02/24 11:33 Testing Laboratory Results 08/02/24 11:19 POC Glucose 86
[2024-08-02] MEDS ORDERED: HYDROmorphone INJ 2 MG/ML SYR/VIAL IV PRN (13:13)
[2024-08-02] MEDS ORDERED: PROMETHAZINE HCL 6.25 MG in SODIUM CHLORIDE 0.9% 50 ML IV PRN (13:13)
[2024-08-02] MEDS ORDERED: ePHEDrine sulfate 50 MG/ML AMP IV PRN (13:13)
[2024-08-02] MEDS ORDERED: ONDANSETRON INJ 2 MG/ML 2 ML VIAL IV PRN ×2 (13:13→15:50)
[2024-08-02] MEDS ORDERED: ATROPINE SULFATE 0.1 MG/ML 10ML SYR IV PRN (13:13)
[2024-08-02] MEDS: ceFAZolin 2000MG 2,000 MG/15 ML SYR IV SCH ×2 (13:19→21:11)
[2024-08-02] MEDS ORDERED: ePHEDrine sulfate 50 MG/5 ML SYR ONE (14:23)
[2024-08-02] MEDS ORDERED: PHENYLEPHRINE 100MCG/ML 5ML SYR ONE (14:24)
[2024-08-02] MEDS ORDERED: bisacodyL 10 MG SUPP PR PRN (15:50)
[2024-08-02] MEDS ORDERED: NALOXONE HCL 0.4 MG/1 ML VIAL/CARP IV PRN ×2 (15:50→16:03)
[2024-08-02] MEDS ORDERED: METOCLOPRAMIDE HCL INJ 5 MG/ML 2 ML VIAL IV PRN (15:50)
[2024-08-02] MEDS ORDERED: MAGNESIUM HYDROXIDE SUSP 30 ML UDC PO PRN (15:50)
[2024-08-02] MEDS ORDERED: NALOXONE NASAL SPRAY 4 MG ER HOMEPACK PRN (15:56)
[2024-08-02] MEDS ORDERED: ACETAMINOPHEN 325 MG TAB PO PRN (15:56)
[2024-08-02] MEDS ORDERED: NON-FORMULARY MEDICATION (Insulin Aspart U-100 [Novolog Flexpen U-100 Insulin] 100 unit/mL SQ SCH (16:00)
[2024-08-02] MEDS ORDERED: NO NSAIDS SCH (16:00)
[2024-08-02] MEDS ORDERED: SPIRONOLACTONE 100 MG TAB PO SCH (16:00)
[2024-08-02] MEDS: fentaNYL citrate PF 100 MCG/2 ML VIAL IV PRN (16:00)
[2024-08-02] MEDS ORDERED: lisinopril 40 MG TAB PO SCH (16:00)
--- NOTE | 2024-08-02 16:03 | Fluoroscopy Report ---
FL ankle LT 2V CLINICAL HISTORY: LT ANKLE OPEN VS CLOSED REDUCTION TECHNIQUE: 29 views were obtained with the C-arm in the OR with the above procedure. Total fluoroscop y time was 272.6 seconds. Radiation dose was 11.4 mGy. Comparison: Comparison is made to CT ankle 07/17/2024 FINDINGS/IMPRESSION: Intraoperative images were obtained of left ankle open reduction with plate and screw hardware placement. Please correlate with intraoperative fluoroscopy and operative report. ACT 112: Negative or not required by law. Electronically signed by: Lars Rice M.D. 08/02/2024 4:02 PM
--- NOTE | 2024-08-02 16:04 | Post Operative Brief Note ---
Immediate Post Op Note Date of Surgery August 02, 2024 Pre & Post Diagnosis Operation Date: 08/02/24 12:45 Pre-Op Diagnosis: Left Ankle Trimalleolar Fracture Post-Op Diagnosis: Left Ankle Trimalleolar Fracture I identified the patient and participated in the time-out.: Yes Procedure Operation Date: 08/02/24 12:45 Actual Procedures p Left Ankle Closed Fixation, Closed Reduction Internal Fixation Medial Lateral Malleolas and Syndesmosis, Closed Management Posterior Malleolas Fracture, Physician Directed Fluroscopy >1hr, Adjustment Left Ankle External Fixator, Application of Below Knee Splint(Left) - Abebe Bright DO 1. Left ankle closed reduction internal fixation lateral malleolus 2. Left ankle close reduction internal fixation medial malleolus 3. Left ankle closed reduction internal fixation syndesmosis 4. Closed management posterior malleolus 5. Physician directed fluoroscopy greater than 1 hour 6. Adjustment left ankle external fixator 7. Application left below-knee splint Surgeon Abebe Bright DO Chief Operating Engineer none Estimated Blood Loss 50 Findings Consistent with Post-Op Diagnosis Anesthesia Type General Complications none immediately apparent Disposition Disposition: Recovery Room Overlapping Procedure I was present for: the critical portions of procedure. ( the entire surgery)
--- NOTE | 2024-08-02 16:43 | Anesthesiology Progress Note ---
Date of Service August 02, 2024 Anesthesia Post Procedure Vital Signs Vital Signs: Temp Pulse Pulse Resp BP Pulse Ox O2 Del Method 08/02/24 16:35 66 15 150/68 H 97 Nasal Cannula 08/02/24 16:25 36.2 C L 65 14 151/85 H 97 Nasal Cannula 08/02/24 16:15 66 15 143/94 H 97 Oxymask 08/02/24 16:05 66 15 161/81 H 100 Oxymask 08/02/24 15:55 62 17 168/83 H 100 Oxymask 08/02/24 15:49 36.0 C L 63 17 167/84 H 99 Oxymask 08/02/24 11:33 37 C 64 20 157/88 H 94 Room Air O2 Flow Rate 08/02/24 16:35 2 08/02/24 16:25 2 08/02/24 16:15 5 08/02/24 16:05 5 08/02/24 15:55 5 08/02/24 15:49 5 08/02/24 11:33 Pain Intensity Left Heel: Pain Intensity: 3 Transfer of Care Handoff Completed per policy Notes Mental Status: alert / awake / arousable and participated in evaluation Patient Amnestic to Procedure: Yes Nausea / Vomiting: adequately controlled Pain: adequately controlled Airway Patency, RR, SpO2: stable & adequate BP & HR: stable & adequate Hydration State: stable & adequate Anesthetic Complications: no major complications apparent
--- NOTE | 2024-08-02 16:51 | Operative Report ---
Post Operative Report Pre & Post Diagnosis Operation Date: 08/02/24 12:45 Pre-Op Diagnosis: Left Ankle Trimalleolar Fracture Hypothyroidism Hypertension Dyslipidemia Diabetic neuropathy insulin dependent diabetes CKD (chronic kidney disease), stage IV Fall Postmenopausal Goiter Graves disease Overweight Osteoarthritis Post-Op Diagnosis: Left Ankle Trimalleolar Fracture Hypothyroidism Hypertension Dyslipidemia Diabetic neuropathy Insulin dependent diabetes CKD (chronic kidney disease), stage IV Fall Postmenopausal Goiter Graves disease Overweight Osteoarthritis I identified the patient and participated in the time-out.: Yes Procedure Operation Date: 08/02/24 12:45 Actual Procedures p Left Ankle Closed Fixation, Closed Reduction Internal Fixation Medial Lateral Malleolas and Syndesmosis, Closed Management Posterior Malleolas Fracture, Physician Directed Fluroscopy >1hr, Adjustment Left Ankle External Fixator, Application of Below Knee Splint(Left) - Abebe Bright DO 1. Left ankle closed reduction internal fixation lateral malleolus 2. Left ankle close reduction internal fixation medial malleolus 3. Left ankle closed reduction internal fixation syndesmosis 4. Closed management left posterior malleolus fracture 5. Physician directed fluoroscopy greater than 1 hour 6. Adjustment left ankle external fixator 7. Application left below-knee splint Surgeon Abebe Bright DO [employer] Cook none Estimated Blood Loss 50 Findings Consistent with Post-Op Diagnosis Fluids see anesthesia record Specimens none Drains none Anesthesia Type General Complications none immediately apparent Disposition Disposition: Recovery Room Indications This is a 68-year-old female who fell a few weeks ago and sustained a left ankle fracture dislocation. I was consulted after she had been on the floor for a few days and at that time was noted to have a subluxed ankle mortise. She was placed into an external fixator and she has been followed up as an outpatient to plan for definitive fixation. The patient did have 2 ulcers at her original surgery, and in the interim, these have become eschars and are certainly concerning as far as wound healing is concerned. The patient is a diabetic with a severely elevated hemoglobin A1c and has Charcot arthropathy in her right foot with history of previous ulcers requiring amputation. The patient's left lower extremity is her "good leg" and because of this, I do believe that she requires stability more so than an external fixator can provide. The patient is at a very very high risk of wound healing complications, deep infection, further surgery to potentially include an amputation. I explained this in great detail to her. The surgical plan for today will include a minimally invasive approach to open reduction internal fixation as we will attempt to put as few new wounds on her as possible due to her demonstrated poor ability to heal skin wounds. Additional risks of the surgery include but are not limited to loss of life/limb, DVT, incomplete relief of pain, malunion, nonunion, hardware complication, hardware failure, infection. Patient understands all these risks and she expressed understanding to her elevated risk of nonhealing wound, deep infection, need for amputation in the future. She wishes to proceed with surgery. no promises or guarantees were stated or implied Description of Procedure after informed consent was obtained, the patient was correctly identified in th e preoperative holding suite, the operative site was marked with the surgeon's initials, the date of surgery, and the word yes. The patient was then taken to the operative suite. The department of anesthesia administered General Anesthesia. The patient was transferred from the [facility] to the operative table. All bony prominences were well-padded. Briefing and timeout was performed. All implants were available and sterile at the time. BRIEFING AND DEBRIEFING: Pre and post operative briefing and debriefing was performed. Introductions were made, goals of the procedure were discussed, que stions and concerns were addressed. The operative site markings were identified and appropriate. A time [id number] was performed, the patient's correct identity was confirmed and the correct operative sites were identified. The patients pre-operative antibiotic dosing and administration was confirmed along with other SCIP measures. The team was polled at the completion of the surgery and all team members were in agreement that the procedure was without complication, the counts are correct, the wound class was identified and suggestions for improvement were shared. After the patient was transferred in supine fashion from the [facility] to the operative table and anesthesia was administered, all bony prominences were well-padded. A tourniquet was placed high on the patient's left thigh, but was not inflated during the case. We began by assessing the reduction with the external fixator in place at the outset. X-rays at this time demonstrated reduced ankle mortise, however we felt as if the external fixator bars would be in our way when placing definitive fixation so we opted to remove them. We left the tibial pins and the calcaneal pin in place. We then prepped and draped the left lower extremity in standard sterile fashion using Betadine scrub and paint due to the external fixator pins. we sent the bars and clamps to be resterilized to be reused at the end of the case. We marked out the anatomy of the distal fibula. We marked out a trajectory on the lateral view. We introduced the guidewire for the Arthrex fibula intramedullary fibular nailing system onto the distal tip slightly medial to the tip such that it had the appropriate trajectory to engage in the medullary canal. Prior to advancing the wire from the distal fragment into the proximal fragment, closed reduction was obtained using external pressure on the distal aspect of the lateral malleolus and the reduction was checked on multiplanar fluoroscopy. This reduction was noted to be reasonable, although not perfect. I do believe that the fibular length is slightly short, however this does not appear to be laterally translated. We then advanced the guidewire into place and over this used the distal opening reamer followed by the medullary reamer such that we would select an appropriate intramedullary device. We reamed up to a 4.0 mm in the shaft and mild chatter was present. The reduction of the lateral malleolus was held during all reaming and was checked on multiplanar fluoroscopy to ensure the reduction was maintained. Next, we removed the guidewire and placed the Arthrex fibulockintramedullary nail 3.8 x 130 mm. We impacted this in a retrograde fashion from distal to proximal. We checked multiple times to ensure reduction was holding, and we impacted this such that we could obtain two syndesmotic screws for fixation. Once we were satisfied with the placement of the intramedullary device, we deployed the proximal tines and we pinned the dist al fragment through the nail. We then using the external guide placed to locking screws through the distal segment from lateral to medial by drilling through the guide, measuring off the drill, and placing the appropriately sized screws. We would end up placing a 2.7 by12 mm cortical screw distally and a x 2.7 by20 mm screw more proximally from lateral to medial. We then repeated this same step for the anterior to posterior screw and we did these through small marie incisions. This screw from anterior to posterior proved to be x 2.7 by22 mm in length. We then turned our attention towards the medial malleolus. We checked the reduction of the medial malleolus fluoroscopically and although it was not perfect, we were satisfied that the shoulder was fairly well reduced. Due to our desire to not perform a large open incision that is at risk for wound healing complications, we opted for percutaneous stabilization of this medial malleolus. We for started by placing a wire out of the trajectory of the screw as a reduction wire and we can check multiplane fluoroscopy to ensure that the reduction was appropriate. We then advanced the guidewire for a 5 mm Arthrex FT headless compression screw in an appropriate trajectory such that It started on the tip of the medial malleolus, crossed the fracture line and engaged the lateral cortex of the tibia. we then measured the guidewire.We were between sizes, so opted for the longer screw in order to achieve bicortical fixation. this screw would proved to be a 5.0 x 80 mm screw.We drilled over the guidewire and then placed the screw over the guidewire all while keeping our reduction wire in place. At this point we checked fluoroscopic views and were satisfied with our fixation and maintenance of reduction, however due to the patient's history of diabetes, we did wish to place 2 syndesmotic screws across the fracture. We dorsiflexed the ankle to 90 degrees, checked fluoroscopic views to ensure that our syndesmosis was well reduced, and we then drilled through the external guide through the fibula canal such that we could place 2 x 3.5 mm quadricortical syndesmotic screws. The more proximal of the screws measured 15 mm in length and the more distal measured 52 mm in length. We then checked final fluoroscopic views, were satisfied with our fixation and reduction and then we irrigated all of the poke holes that we had made, close then with 3-0 nylon suture in a vertical mattress fashion such that skin edges everted. We placed brown Steri-Strips in between all sutures, dressed all the surgical wounds, blisters, and external fixator pin sites with Betadine soaked Adaptic, 4 x 4's fluffed, and sterile Webril. We then turned our attention towards replacing the External fixator. We attached the pin to bar clamps on the calcaneal pin and the bar to bar clamps on the out rigors that were in place on the tibial pins, we ensured appropriate reduction on AP and lateral views and then tightened all of the clamps. Next, we wrapped the leg in sterile cotton padding, and placed a well-padded posterior slab splint to keep the ankle at neutral dorsiflexion. The patient tolerated this procedure well and was transferred to the PACU in stable condition. Prior to transportation to PACU, all counts were correct and a briefing was performed at the end of the case. Physician-directed fluoroscopy for greater than one hour was performed by myself to verify fracture alignment and the safe placement of all internal fixation. The final images saved to PACs showed views demonstrating satisfactory alignment of the fracture and stable internal fixation. Implant verification was performed by myself by reading and confirming the implant information on the packaging with the team before the sterile implants were opened. I was present for the entire procedure. Plan: Weight bearing status: nonweightbearing left lower extremity Wound care: keep splint clean and dry Range of motion: as tolerated of the knee VTE Prophylaxis: patient to resume Eliquis tomorrow morning Antibiotics: perioperative Ancef Pain Control: Multimodal, avoiding NSAIDs Discharge Plan: she will discharge back [facility] most likely tomorrow Follow Up: patient will follow-up with myself in 2 weeks for wound check. We will remove her external fixator in the office between 4 and 6 weeks postoperatively. Implants: Arthrex fibulock intramedullary nail 3.8 x 130 mm, left Distal locking screws: 2.7 x 12 mm, 2.7 x 20 mm, 2.7 x 22 mm Medial malleolus: 5.0 x 80 mm FT headless compression screw Syndesmosis: 3.5 x 50mm, 3.5 x 52 mm cortical screws I attest to the content of the Intraoperative Record and any orders documented therein. Any exceptions are noted below.
[2024-08-02] MEDS ORDERED: PHARMACY GLYCEMIC MGMT CONSULT PRN (16:58)
[2024-08-02] MEDS: BUPIVACAINE/EPINEPHRINE 0.5% MPF 1:200,000 30 ML VIAL ONE (16:59)
--- NOTE | 2024-08-02 16:59 | Hospitalist Consultation ---
Date of Consultation August 02, 2024 Assessment & Plan (1) Closed trimalleolar fracture of ankle: s/p Left Ankle Closed Fixation, Closed Reduction Internal Fixation Medial Lateral Malleolas and Syndesmosis, Closed Management Posterior Malleolas Fracture, Physician Directed Fluroscopy >1hr, Adjustment Left Ankle External Fixator, Application of Below Knee Splint(Left) - Abebe Bright, DO on 08/02 EBL 50cc Post op pain management/bowel regimen/PT/OT/DVT per primary service -- notable was dc on low dose eliquis 2.5mg BID for DVT prophylaxis last admission, no bleeding reported. Eliquis ordered to resume AM 08/03 Monitor labs in AM, hopeful dc back to [facility] per patient. (2) Hypertension: Lisinopril on hold, continues on metoprolol alone and was previously WELL controlled with metoprolol alone as lisinopril/spironolactone was held due to ALLY. did discussed given K borderline last time if needing diuretic probably best to switch to HCTZ over spironolactone to prevent hyperkalemia BP 142/89 and will monitor (3) CKD stage 4 due to type 2 diabetes mellitus: Cr elevated at dc last admission and spironolactone/lisinopril held at that time. does not appear to have had repeat labs but discussed will hold for now and as discussed prior likely would not continue both to prevent hyperkalemia and if needing diuretic would f/u with PCP [place] [facility] about HCTZ. Continues on metoprolol 50mg HS in meantime Glargine 20u HS, sliding scale insulin added and glycemic consult placed for assistance but notable had been very well controlled on once daily last admission with sliding scale with CF 20/CR 12 Monitor/adjustment as needed Renal dose meds, avoid nephrotoxins. Would avoid NSAIDs BMP in AM (4) Hypothyroidism, postablative: Prior TSH elevation in May to 7.7 but normal T4. Remains on Synthroid 150mcg daily. Will check TSH w/ T3 w/ AM labs. Can increase if low T3/T4 given constipation issues prior (improved w/ colace BID on pain meds for ankle above) (5) Diabetes type 1, uncontrolled: very poorly controlled prior to admission this past month w/ A1c 11.5 did have stable blood sugar control while inpatient w/ assistance of glycemic consult, was to get Albin last admission. --> Stable at [facility] at that time with glargine 20mg HS with sliding scale and will order such until pharmacy consult completed for BSG control Monitor/adjustment as needed Plan Dispo: continued inpatient stay overnight, patient hopeful to return to [facility] tomorrow pending status/therapy elainejulian Thank you for allowing hospitalist service to participate in the care of Ms Pinon. Hospitalist service will follow along. Please call with any questions/concerns. Supervising Physician Co-Signing Physician Notes The patient was seen by me. The chart was reviewed. Case discussed with RIK Fleming. Agree with assessment and plan History of Present Illness Reason for Consultation: medical management Requesting Physician: Dr Bright Attending Physician: Abebe Bright DO History of Present Illness 68 yo female presented for Left Ankle Closed Fixation, Closed Reduction Internal Fixation Medial Lateral Malleolas and Syndesmosis, Closed Management Posterior Malleolas Fracture with Dr Bright this morning. Initially was admitted from 07/13-07/18 after initial external fixation of left ankle by Dr Bright on 07/17 with plans to allow for swelling to subside prior to definitive treatment. Patient evaluated in PACU, resting comfortably. Pain controlled. On supplemental O2, taking a rest. Pain stable control, reports good medicine with anesthesia. Toes mobile but sensation still not there yet. No bleeding issues reported with eliquis for DVT prophylaxis. She is unsure if ever resumed spironolactone/lisinopril but discussed holding these for now. Blood sugars stable control at [facility], reports had good experience at [facility] and plans to return there hopefully tomorrow. She reports she was doing well with the NWB and able to get herself washed up this morning, hopeful for the same experience. No fever/chills, chest pain, shortness of breath, abdominal pain, nausea or vomiting. Does endorse issues w/ constipation but since being on colace has been going pretty regularly. Allergies Allergy/AdvReac Type Severity Reaction Status Date / Time pseudoephedrine Allergy Intermediate swelling Verified 08/02/24 11:18 Home Medications Medication Instructions Recorded Confirmed Type lisinopril 40 mg tablet 40 mg PO UD 06/06/19 08/02/24 History atorvastatin 80 mg tablet 80 mg PO HS 06/09/20 08/02/24 History metoprolol succinate 50 mg 50 mg PO HS 03/02/21 08/02/24 History tablet,extended release 24 hr (Toprol XL) blood sugar diagnostic (Accu-Chek 04/25/23 06/25/24 History Guide test strips) blood-glucose meter,continuous #1 ea 05/09/23 06/25/24 Rx (Dexcom G7 Data Collection Interviewer) blood-glucose sensor (Dexcom G7 #3 ea 05/09/23 06/25/24 Rx Sensor device) lancets (Accu-Chek Softclix #100 ea 09/05/23 06/25/24 History Lancets) duloxetine 30 mg capsule,delayed 30 mg PO BID 06/18/24 08/02/24 History release insulin glargine 100 unit/mL (3 20 unit subcut QPM 06/18/24 08/02/24 History mL) subcutaneous pen (Lantus Solostar U-100 Insulin) spironolactone 100 mg tablet 100 mg PO UD 06/18/24 08/02/24 History apixaban 2.5 mg tablet (Eliquis) 2.5 mg PO BID 4 weeks #0 tabs 07/18/24 08/02/24 Rx docusate sodium 100 mg capsule 100 mg PO BID #0 caps 07/18/24 08/02/24 Rx polyethylene glycol 3350 17 gram 17 g PO DAILY PRN constipation #0 07/18/24 08/02/24 Rx oral powder packet (Miralax) ea sennosides 8.6 mg tablet (Senokot) 17.2 mg (2 x 8.6 mg) PO HS #0 tabs 07/18/24 08/02/24 Rx acetaminophen 325 mg tablet 650 mg PO Q4H PRN Pain 07/31/24 08/02/24 History bisacodyl 10 mg rectal suppository 10 mg NM DAILY PRN Constipation 07/31/24 08/02/24 History insulin aspart U-100 100 unit/mL 1 sliding scale dose subcut 07/31/24 08/02/24 History (3 mL) subcutaneous pen (Novolog USEASDIRECTD FlexPen U-100 Insulin aspart) levothyroxine 150 mcg tablet 150 mcg PO QAM 07/31/24 08/02/24 History (Euthyrox) naloxone 4 mg/actuation nasal spray 4 mg intranasal DAILY PRN opiod 07/31/24 08/02/24 History overdose ondansetron 4 mg disintegrating 4 mg PO Q6H PRN Nausea 07/31/24 08/02/24 History tablet sodium phosphates 19 gram-7 118 ml NM DAILY PRN Constipation 07/31/24 08/02/24 History gram/118 mL enema (Fleet Enema) oxycodone 5 mg tablet 5 mg PO Q6H PRN pain 7 days #15 08/03/24 08/02/24 Rx tabs Patient History Medical History Hypothyroidism Hypertension Dyslipidemia Diabetic neuropathy Type 1 diabetes CKD (chronic kidney disease), stage IV Fall Postmenopausal Goiter Graves disease Overweight Osteoarthritis Surgical History 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 History of colonoscopy History of cholecystectomy History of tooth extraction History of tonsillectomy History of cataract surgery RT/LEFT S/P cholecystectomy Family History Sister Diabetes Grandmother (Paternal) Diabetes Father Stroke COPD (chronic obstructive pulmonary disease) Brother Hemochromatosis Social History Smoking Status: Former smoker Tobacco Type: Cigarettes Cigarettes Per Day: 1-5; Second Hand Exposure: No; Do You Dip or Chew Tobacco: No; Tobacco Cessation Education Requested by Patient: No Hx Alcohol Use: Yes Alcohol type: wine Hx Substance Use: No Preferred Language: Bulgarian Communication Ability: Effective Visual Impairment: No Limitations Hearing Ability: Normal Transfer Agent Required: No Beliefs That Will Affect Care: None Current Living Situation: [facility] Current Living Situation Comment: home alone with cat, cares for elderly mother who lives nearby current occupational status: employed current occupation: retail @ [employer] How many Children do You have: 0 Other Information That Helps Us Care for You: No Feels Safe at Home: Yes Safety Concerns: Feels Safe At This Time Diet: regular caffeine: Yes (1-2 cups tea or coffee daily) during the past year weight has: increased > 10 lbs Physical Activity Frequency: Does not Exercise Gender Identity: Female Assistive Devices: Walker Physical Exam Physical Exam: General: 68yo female sitting up bed in PACU, NAD, on 2L NC HEENT: head atraumatic, normocephalic, mm slightly dry, trachea midline Resp; Even/unlabored, no w/c/r, on supplemental O2 post-operatively CV: RRR, no significant m/r/g, no pitting edema, cap refill wnl GI: +BS throughout, less distended than last admission, soft/no over tenderness MSK/Neuro: LLE with fixator in place, splint below the knee, SOHAN wrap/dressing in place, c/d/i, diminished sensation to light touch but able to feel pressure, toes mobile, cap refill wnl calves nontender Psych: AOx3, cooperative with exam Results & Data Results & Data Vital Signs (Past 12 Hours) Vital Signs Temp Pulse Pulse Resp BP Pulse Ox O2 Del Method 08/02/24 16:35 66 15 150/68 H 97 Nasal Cannula 08/02/24 16:25 36.2 C L 65 14 151/85 H 97 Nasal Cannula 08/02/24 16:15 66 15 143/94 H 97 Oxymask 08/02/24 16:05 66 15 161/81 H 100 Oxymask 08/02/24 15:55 62 17 168/83 H 100 Oxymask 08/02/24 15:49 36.0 C L 63 17 167/84 H 99 Oxymask 08/02/24 11:33 37 C 64 20 157/88 H 94 Room Air O2 Flow Rate 08/02/24 16:35 2 08/02/24 16:25 2 08/02/24 16:15 5 08/02/24 16:05 5 08/02/24 15:55 5 08/02/24 15:49 5 08/02/24 11:33 Diagnostic Findings Ankle X-Ray 08/02/24 12:45 FL ankle LT 2V CLINICAL HISTORY: LT ANKLE OPEN VS CLOSED REDUCTION TECHNIQUE: 29 views were obtained with the C-arm in the OR with the above procedure. Total fluoroscopy time was 272.6 seconds. Radiation dose was 11.4 mGy. Comparison: Comparison is made to CT ankle 07/17/2024 FINDINGS/IMPRESSION: Intraoperative images were obtained of left ankle open reduction with plate and screw hardware placement. Please correlate with intraoperative fluoroscopy and operative report. ACT 112: Negative or not required by law. Electronically signed by: Lars Rice M.D. 08/02/2024 4:02 PM PG Care Time/CCT Total # of Minutes Spent Total Time Spent with Patient: Total time spent is greater than 50% in coordination of care (as documented) at patient's floor/unit and/or counseling patient: Coding Level of Care Code 30992 IN/OBS CONSULT LVL 3,45M Diagnoses Closed trimalleolar fracture of ankle S82.852A Encounter type: initial encounter Laterality: left Hypertension I10 CKD stage 4 due to type 2 diabetes mellitus E11.22; N18.4 Hypothyroidism, postablative E89.0 Diabetes type 1, uncontrolled E10.65 (1) Closed trimalleolar fracture of ankle Encounter type: initial encounter Laterality: left Qualified Code(s): S82.852A - Displaced trimalleolar fracture of left lower leg, initial encounter for closed fracture
[2024-08-02] MEDS ORDERED: DEXTROSE 50% 50 ML SYRINGE IV PRN (17:32)
[2024-08-02] MEDS ORDERED: CARBOHYDRATES FOR HYPOGLYCEMIA PO PRN (17:32)
[2024-08-02] MEDS ORDERED: GLUCOSE 40% GEL 15 GM TUBE PO PRN (17:32)
[2024-08-02] MEDS ORDERED: GLUCOSE 10 TAB/TUBE PO PRN (17:32)
[2024-08-02] MEDS ORDERED: GLUCAGON FOR INJ 1 MG VIAL SQ PRN (17:32)
[2024-08-02] MEDS: LANTUS PER UNIT CHARGE SQ SCH (20:34)
[2024-08-02] MEDS: INSULIN ASPART PER UNIT CHARGE SC SCH (20:34)
[2024-08-02] MEDS: SENNA 8.6 MG TAB PO SCH (20:34)
[2024-08-02] MEDS: DOCUSATE SODIUM 100 MG CAP PO SCH (20:35)
[2024-08-02] MEDS: oxyCODONE HCL IR 5 MG TAB (IMMEDIATE RELEASE) PO PRN (20:35)
[2024-08-02] MEDS: METOPROLOL SUCC 50MG EXT REL TAB PO SCH (20:36)
[2024-08-02] MEDS: ATORVASTATIN 40 MG TAB PO SCH (20:36)
[2024-08-02] MEDS ORDERED: NON-FORMULARY MEDICATION (Insulin Glargine [Lantus Solostar U-100 Insulin] 100 unit/mL (3 SQ SCH (21:00)
[2024-08-02] MEDS ORDERED: ceFAZolin 1000MG 1,000 MG/7.5 ML SYR IV SCH (22:00)
[2024-08-03] MEDS ORDERED: PHARMACY GLYCEMIC MGMT CONSULT PRN (05:00)
[2024-08-03] MEDS: LEVOTHYROXINE SODIUM 150 MCG TABLET PO SCH (06:09)
[2024-08-03 06:48] LABS: Hematocrit (blood only) 33.5 % (37.0-47.0); Mean Corpuscular Hemoglobin 32.2 pg (25.0-34.0); Mean Corpuscular Hgb Conc 32.8 g/dL (32.0-36.0); Mean Platelet Volume 11.8 fL (9.4-12.4); Platelet Count 221 K/uL (130-400); RDW Coefficient of Variation 12.9 % (11.5-14.5); Red Blood Count 3.42 M/uL (4.20-5.40)
[2024-08-03 07:05] LABS: Calcium 8.8 mg/dl (8.6-10.3); Creatinine Clr Calc Pharmacy 34.9 ml/min; Magnesium 1.6 mg/dl (1.7-2.4); Potassium 4.3 mmol/L (3.5-5.1)
[2024-08-03 07:20] LABS: Thyroid Stimulating Hormone 2.296 uIu/ml (0.300-4.500)
--- NOTE | 2024-08-03 07:25 | Hospitalist Progress Note ---
Date of Service August 03, 2024 Assessment & Plan (1) Closed trimalleolar fracture of ankle: Plan: s/p Left Ankle Closed Fixation, Closed Reduction Internal Fixation Medial Lateral Malleolas and Syndesmosis, Closed Management Posterior Malleolas Fracture, Physician Directed Fluroscopy >1hr, Adjustment Left Ankle External Fixator, Application of Below Knee Splint(Left) - Abebe Bright, DO on 08/02 EBL 50cc Post op pain management/bowel regimen/PT/OT/DVT per primary service -- notable was dc on low dose eliquis 2.5mg BID for DVT prophylaxis last admission, no bleeding reported. Eliquis ordered to resume AM 08/03 for ongoing DVT prophylaxis 08/03 WBC stable. Hgb 10.7 at discharge last admission with IVF. Currently hgb stable 11.0. BUN/Cr 34/1.7, improved from last time and remains with spironolactone and lisinopril on hold. K 4.3. Mag 1.6 - 2gm IV ordered Again, would recommend to continue to hold these medications at discharge unless needed for BP could resume lisinopril but would hold off diuretic to prevent worsened renal function. DId place on hold in dc instructions (2) Hypertension: Plan: Lisinopril on hold, continues on metoprolol alone and was previously WELL controlled with metoprolol alone as lisinopril/spironolactone was held due to ALLY. did discussed given K borderline last time if needing diuretic probably best to switch to HCTZ over spironolactone to prevent hyperkalemia BP 135/77 only on metoprolol in setting of surgery/pain control and Cr improved to 1.7 from last admission and discussed HOLDING OFF both at dc as no evidence for volume overload presently and likely worsened renal function with use. F/u PCP. Have changed meds on med rec for dc to [facility] when bed confirmed by CM (3) CKD stage 4 due to type 2 diabetes mellitus: Plan: Cr elevated at co last admission and spironolactone/lisinopril held at that time. does not appear to have had repeat labs but discussed will hold for now and as discussed prior likely would not continue both to prevent hyperkalemia and if needing diuretic would f/u with PCP at co about HCTZ. Continues on metoprolol 50mg HS in meantime Glargine 20u HS, sliding scale insulin added and glycemic consult placed for assistance however BSGs quite stable and no changes have been made and she plans on getting continuous pump at dc rather than injections per patient report Cr down to 1.7 with holding ARB/spironolactone and again would continue to hold at dc Avoid NSAIDs Renal dose meds, avoid nephrotoxins Monitor BMP in f/u with PCP (4) Hypothyroidism, postablative: Plan: Prior TSH elevation in May to 7.7 but normal T4. Repeat TSH wnl w/ T3 and continues on Synthroid 150mcg daily (5) Diabetes type 1, uncontrolled: Plan: very poorly controlled most recent admission w/ A1c 11.5 however had great control w/ tx as above and has been continued and patient planning for outpt f/u for glucose monitoring device (6) Hypomagnesemia: Plan: Mag 1.6, 2gm IV ordered prior to dc to ensure replete Plan Dispo: medically stable for dc to [facility] when bed confirmed by case management. Good bowel sounds but encouraged continued bowel regimen to prevent constipation. Thank you for allowing hospitalist service to participate in the care of Ms Pinon. Hospitalist service will sign off at this time. Please call with any questions/concerns. Admission and Anticipated Discharge Date Admission Date: August 02, 2024 Supervising Physician Co-Signing Physician Notes The patient was seen by me. The chart was reviewed. Case discussed with RIK Fleming. Agree with assessment and plan Subjective Evaluated this morning, sitting up in bed. Reports feeling better, pain controlled. Sensation returning to toes, mobile. Mag replacement ordered. Planning for dc to [facility] today. Discussed BP stable and renal function improved and would HOLD OFF resuming spironolactone/lisinopril at dc unless needed for BP or edema however monitor potassium. She notes she does take potassium supplement OTC at home, discussed avoiding this is she is on these medications. Good bowel sounds, no BM yet. Bowel regimen can be continued at rehab. Urinating without issue, no shepherd. Questions/concerns addressed at this time. Physical Exam 2 Physical Exam: General: 68yo female sitting up bed, NAD, appears improved, on room air HEENT: head atraumatic, normocephalic, mm improved, trachea midline Resp; Even/unlabored, slightly diminished in the bases, no wheezing/rales, on room air CV: RRR, no significant m/r/g, no pitting edema, cap refill wnl GI: +BS throughout, less distended than last admission, soft/no over tenderness MSK/Neuro: LLE with fixator in place, splint below the knee, SOHAN wrap/dressing in place, c/d/i, diminished sensation to light touch (improving) but able to feel pressure, toes mobile, cap refill wnl calves nontender Psych: AOx3, cooperative with exam Results & Data Results & Data Vital Signs (Past 12 Hours) Vital Signs Temp Pulse Resp BP Pulse Ox O2 Del Method 08/03/24 03:00 36.7 C 67 16 124/68 95 Room Air 08/02/24 22:33 36.4 C 70 16 162/80 H 93 Room Air 08/02/24 20:40 36.6 C 67 16 149/79 H 96 Room Air 08/02/24 19:37 36.5 C 70 18 149/85 H 95 Room Air 08/02/24 19:35 Room Air Laboratory Results 08/03/24 06:10 08/03/24 06:10 Mag 1.6 Diagnostic Findings Ankle X-Ray 08/02/24 12:45 FL ankle LT 2V CLINICAL HISTORY: LT ANKLE OPEN VS CLOSED REDUCTION TECHNIQUE: 29 views were obtained with the C-arm in the OR with the above procedure. Total fluoroscopy time was 272.6 seconds. Radiation dose was 11.4 mGy. Comparison: Comparison is made to CT ankle 07/17/2024 FINDINGS/IMPRESSION: Intraoperative images were obtained of left ankle open reduction with plate and screw hardware placement. Please correlate with intraoperative fluoroscopy and operative report. ACT 112: Negative or not required by law. Electronically signed by: Lars Rice M.D. 08/02/2024 4:02 PM PG Care Time/CCT Total # of Minutes Spent Total Time Spent with Patient: Total time spent is greater than 50% in coordination of care (as documented) at patient's floor/unit and/or counseling patient: Coding Level of Care Code 64015 SUB INP/OBS CARE 2/35MIN Diagnoses Closed trimalleolar fracture of ankle S82.852A Encounter type: initial encounter Laterality: left Hypertension I10 CKD stage 4 due to type 2 diabetes mellitus E11.22; N18.4 Hypothyroidism, postablative E89.0 Diabetes type 1, uncontrolled E10.65 Hypomagnesemia E83.42 (1) Closed trimalleolar fracture of ankle Encounter type: initial encounter Laterality: left Qualified Code(s): S 82.852A - Displaced trimalleolar fracture of left lower leg, initial encounter for closed fracture
[2024-08-03 07:27] VITALS: RESP 18
--- NOTE | 2024-08-03 08:45 | Orthopedic Progress Note ---
Date of Service August 03, 2024 Assessment & Plan (1) Closed trimalleolar fracture of ankle: (2) Hypertension: (3) CKD stage 4 due to type 2 diabetes mellitus: (4) Hypothyroidism, postablative: (5) Diabetes type 1, uncontrolled: (6) Hypomagnesemia: Plan patient doing well POD 1 s/p: 1. Left ankle closed reduction internal fixation lateral malleolus 2. Left ankle close reduction internal fixation medial malleolus 3. Left ankle closed reduction internal fixation syndesmosis 4. Closed management left posterior malleolus fracture 5. Physician directed fluoroscopy greater than 1 hour 6. Adjustment left ankle external fixator 7. Application left below-knee splint NWB LLE PT/OT multimodal pain control avoiding NSAIDs eliquis for DVT ppx plan to return to [facility] today patient has appropriate followup scheduled. Admission and Anticipated Discharge Date Admission Date: August 02, 2024 Subjective patient doing well POD1. no acute complaints. ready to return to [facility] Review of Systems Review of Systems: All systems reviewed & are unremarkable except as noted in HPI & below Physical Exam Physical Exam: splint in place. leg elevated. active EHL/FHL function Results & Data Vital Signs (Past 12 Hours) Vital Signs Temp Pulse Resp BP Pulse Ox O2 Del Method 08/03/24 07:25 36.6 C 70 18 108/66 91 Room Air 08/03/24 03:00 36.7 C 67 16 124/68 95 Room Air 08/02/24 22:33 36.4 C 70 16 162/80 H 93 Room Air Diagnostic Findings intraop films reviewed. demonstrate stable fixation with reduced ankle mortise (1) Closed trimalleolar fracture of ankle Encounter type: initial encounter Laterality: left Qualified Code(s): S82.852A - Displaced trimalleolar fracture of left lower leg, initial encounter for closed fracture
[2024-08-03] MEDS: MULTIVITAMIN TAB PO SCH (09:16)
[2024-08-03] MEDS: APIXABAN 2.5 MG TAB PO SCH (09:16)
[2024-08-03] MEDS: MAGNESIUM SULFATE / D5W 1 GM/100 ML BAG IV SCH (09:24)
--- NOTE | 2024-08-03 09:48 | Pharmacy Report ---
Pharmacy Glycemic Short Note 2 - Date of Service August 03, 2024 - Glycemic Short BSG Results (Last 24 hours): 08/02/24 08/02/24 08/02/24 11:19 16:05 17:49 Glucose POC Glucose 86 74 81 08/02/24 08/03/24 08/03/24 20:24 06:10 07:31 Glucose 121 H POC Glucose 107 H 131 H OUTPATIENT ANTIDIABETIC REGIMEN: * Lantus 20units qPM * Novolog sliding scale with CF 25-30 HbA1c 11.5% on 07/13/24 ASSESSMENT: * 68 year old female with Type 1 diabetes was admitted 08/02 for left ankle surgery secondary to a fracture. (POD #1). Pharmacy has been consulted postop for glycemic management. * Although pt has poorly controlled diabetes, she did have stable blood sugar control while she was admitted here earlier this month (07/13-07/18). Basal and bolus insulin with the same parameters the patient was on last admission were ordered to start post op last evening. * Fasting BSG was within goal range, so the basal insulin will not be changed. * Bolus insulin parameters will be adjusted as needed in an attempt to prevent hypo and hyperglycemia. PLAN FOR INPATIENT GLYCEMIC CONTROL: * Basal insulin * Lantus 20 units SQ HS * Bolus insulin * NovoLog per scale ACHS or Q6hrs while NPO * Goal Range: Low 120 mg/dL - High 180 mg/dL * Correction Factor: 20 mg/dL/unit * Nutritional / Prandial insulin per carb ratio of 1 unit per 12 grams CHO consumed
[2024-08-03 11:54] VITALS: BP 135/77; PULSE 69; TEMP 98.1; O2SAT 95
== END 2024-08-03 14:03 | DRG 493 ==
LOC: ASU 10:50 → 3N 15:50 → SUATTDRO 15:50
DX: W19.XXXA Unspecified fall, initial encounter; E05.00 Thyrotoxicosis with diffuse goiter without thyrotoxic crisis or storm; E89.0 Postprocedural hypothyroidism; E10.21 Type 1 diabetes mellitus with diabetic nephropathy; Z83.3 Family history of diabetes mellitus; E83.42 Hypomagnesemia; Z79.01 Long term (current) use of anticoagulants; N18.4 Chronic kidney disease, stage 4 (severe); S82.852A Displaced trimalleolar fracture of left lower leg, initial encounter for closed fracture; I12.9 Hypertensive chronic kidney disease with stage 1 through stage 4 chronic kidney disease, or unspecified chronic kidney disease; E10.610 Type 1 diabetes mellitus with diabetic neuropathic arthropathy; Y92.89 Other specified places as the place of occurrence of the external cause; E78.5 Hyperlipidemia, unspecified; N95.8 Other specified menopausal and perimenopausal disorders; Z87.891 Personal history of nicotine dependence